=== PATIENT | female | born 1945 | race Caucasian/White ===

== ENCOUNTER → 2024-02-09 12:24 | Outpatient (REF) | payer OTHER, SELFPAY | LOC: WDC 12:24 | PROVIDERS: ATTENDING PHYSICIAN Nurse Practitioner Family | DX: Z12.31 Encounter for screening mammogram for malignant neoplasm of breast (principal) | CPT/HCPCS: 77063; 77067 ==

== ENCOUNTER 2024-10-03 12:56 | Inpatient (IN) | payer OTHER, SELFPAY ==
[2024-10-03] VITALS (8 sets, daily range): BP systolic 104–175; BP diastolic 59–91; BMI 40.9
--- NOTE | 2024-10-03 10:52 | ED.GENMED ---
History of Present Illness
<Clarke Richardson PA-C - Last Filed: 10/03/24 12:14>
General
Chief Complaint: Abdominal Symptoms
Source: patient
Exam Limitations: none
Time Seen by Provider: 10/03/24 10:42
History of Present Illness
History of Present Illness:
79-year-old female presents via EMS for she lives home alone with complaints of nausea fatigue headache. She denies vomiting. No chest pain. She denies shortness of breath. She denies abdominal pain. This started 2 days ago and is getting
worse. The headache started today and that she notes a moderate to severe headache with associated nausea. She denies any vision change. No other complaints at this time
Past History
<Clarke Richardson PA-C - Last Filed: 10/03/24 12:14>
Past History
ED Past Medical History: GERD, HTN, Hypercholesterolemia and Other (UTI, )
ED Past Surgical History: Appendectomy, Gynecological (D&C), Tonsilectomy and Other (Cataracts, Hemorrhoids. )
Patient has exhibited threatening behavior?: No
Social History
Tobacco: Non-smoker
Alcohol: None
Drug: None
Personal:
Living: alone
Phy Exam
<Clarke Richardson PA-C - Last Filed: 10/03/24 12:14>
Physical Exam
Physical Exam:
General: Well-appearing female no acute respiratory distress
HEENT normocephalic atraumatic subconjunctival hemorrhage noted right eye
Heart: Regular rate and rhythm
Lungs clear bilaterally
Abdomen is soft nontender nondistended
Extremities: No cyanosis but there is pitting edema bilateral lower extremities
Skin is warm no rash
Neurologic exam: Alert and oriented no facial asymmetry
Course
<Clarke Richardson PA-C - Last Filed: 10/03/24 12:14>
Orders/Labs/Results
Orders:
Orders
10/03/24 10:37
Electrocardiogram (*1) Urgent
Reason for Study: Chest Pain
EKG- Treatment ONCE
10/03/24 10:47
Acetaminophen [Tylenol] 1,000 mg PO NOW STA
Ondansetron Injectable [Zofran] 4 mg IV NOW STA
10/03/24 10:48
Comprehensive Metabolic Panel Urgent
CR Chest - 2 Views Urgent
Comment:
Reason For Exam: fever
10/03/24 10:49
COVID-19 Antigen Urgent
Source: Nasal Swab
Complete Blood Count/With Diff Urgent
NT-proBNP Urgent
Troponin I Urgent
INF RAPID [Influenza A+B Rapid Molecular] Urgent
ABBE Source: Nasal Swab
Specimen Description:
10/03/24 10:51
CT Head W/o Iv Contrast Urgent
Comment:
Reason For Exam: headache, nausea
10/03/24 12:28
Admit/Transfer Patient As Directed
Co-Sign Provider:
Level of Care: Inpatient admission
Assign to:: Telemetry
Physician / Group: Uday
Diagnosis: Hypoxia, COVID Infection
Reason for Telemetry: Arrhythmia
Date to Stop Telemetry: 10/06/24
Time to Stop Telemetry: 11:00
Reason for Hospitalization: oxygen, steroids
Expected length of stay greater than two midnights?: Yes
ELOS- Estimated Length of Stay in days: 3
I certify the patient meets the requirements for IP care: Yes
PRN Pain Medication Management As Directed
May give lesser potent ordered pain med per pt: Yes
preference::
Protocol:: Medication orders for pain may be administered in a
manner that supports deferring to patient preference
when the pt is:
- Requesting an ordered lesser potent pain medication.
Least to most potent pain medications are defined
as: acetaminophen < NSAID < tramadol < opioids
(morphine, oxycodone, hydromorphone).
- Requesting a lesser dose of the same medication IF
ORDERED.
- Requesting a less intrusive route of administration
if both routes are prescribed by the provider (PO <
IV).
10/03/24 12:29
Dexamethasone [Decadron] 6 mg PO NOW STA
10/03/24 12:32
Code Status As Directed
Resuscitation Status: Full Code
10/03/24 20:00
Nirmatrelvir/Ritonavir [Paxlovid 2X150 mg-100 mg Dose Pack] 1 dose PO BID
10/06/24 11:00
DC Protocol for Telemetry ONCE
Abnormal Lab Results
10/03/24 10/03/24
10:48 10:49
MCHC 31.9 L g/dL
(33.0-37.0)
RDW 14.9 H %
(11.5-14.5)
Plt Count 115 L 10^3/uL
(130-400)
Abs Immat Gran (auto) 0.1 H 10^3/uL
(0-0.05)
Absolute Neuts (auto) 6.7 H 10^3/uL
(1.4-6.5)
Absolute Lymphs (auto) 0.9 L 10^3/uL
(1.2-3.4)
Immature Gran % 0.6 H %
(0-0.5)
Neutrophils % 80.3 H %
(42.2-75.2)
Lymphocytes % 10.3 L %
(20.5-51.1)
Carbon Dioxide 33 H mmol/L
(22-30)
BUN 20 H mg/dl
(7-17)
Glucose 100 H mg/dl
(70-99)
Total Protein 6.0 L g/dl
(6.3-8.2)
SARS-CoV-2 Antigen Positive A
(Negative)
10/03/24 10:49
10/03/24 10:48
Vital Signs
Initial and Last Documented VS:
Initial Vital Signs
Temp
100.2 F
10/03/24 10:44
Last Documented Vital Signs
Temp Pulse Resp BP Pulse Ox
100.2 F 97 24 166/88 96
10/03/24 10:44 10/03/24 11:00 10/03/24 11:00 10/03/24 11:00 10/03/24 11:00
<Ellen Vásquez MD - Last Filed: 10/03/24 13:04>
Orders/Labs/Results
Orders:
Orders
10/03/24 10:37
Electrocardiogram (*1) Urgent
Reason for Study: Chest Pain
EKG- Treatment ONCE
10/03/24 10:47
Acetaminophen [Tylenol] 1,000 mg PO NOW STA
Ondansetron Injectable [Zofran] 4 mg IV NOW STA
10/03/24 10:48
Comprehensive Metabolic Panel Urgent
CR Chest - 2 Views Urgent
Comment:
Reason For Exam: fever
10/03/24 10:49
COVID-19 Antigen Urgent
Source: Nasal Swab
Complete Blood Count/With Diff Urgent
NT-proBNP Urgent
Troponin I Urgent
INF RAPID [Influenza A+B Rapid Molecular] Urgent
ABBE Source: Nasal Swab
Specimen Description:
10/03/24 10:51
CT Head W/o Iv Contrast Urgent
Comment:
Reason For Exam: headache, nausea
10/03/24 12:28
Admit/Transfer Patient As Directed
Co-Sign Provider:
Level of Care: Inpatient admission
Assign to:: Telemetry
Physician / Group: Uday
Diagnosis: Hypoxia, COVID Infection
Reason for Telemetry: Arrhythmia
Date to Stop Telemetry: 10/06/24
Time to Stop Telemetry: 11:00
Reason for Hospitalization: oxygen, steroids
Expected length of stay greater than two midnights?: Yes
ELOS- Estimated Length of Stay in days: 3
I certify the patient meets the requirements for IP care: Yes
PRN Pain Medication Management As Directed
May give lesser potent ordered pain med per pt: Yes
preference::
Protocol:: Medication orders for pain may be administered in a
manner that supports deferring to patient preference
when the pt is:
- Requesting an ordered lesser potent pain medication.
Least to most potent pain medications are defined
as: acetaminophen < NSAID < tramadol < opioids
(morphine, oxycodone, hydromorphone).
- Requesting a lesser dose of the same medication IF
ORDERED.
- Requesting a less intrusive route of administration
if both routes are prescribed by the provider (PO <
IV).
10/03/24 12:29
Dexamethasone [Decadron] 6 mg PO NOW STA
10/03/24 12:32
Code Status As Directed
Resuscitation Status: Full Code
10/03/24 20:00
Nirmatrelvir/Ritonavir [Paxlovid 2X150 mg-100 mg Dose Pack] 1 dose PO BID
10/06/24 11:00
DC Protocol for Telemetry ONCE
Abnormal Lab Results
10/03/24 10/03/24
10:48 10:49
MCHC 31.9 L g/dL
(33.0-37.0)
RDW 14.9 H %
(11.5-14.5)
Plt Count 115 L 10^3/uL
(130-400)
Abs Immat Gran (auto) 0.1 H 10^3/uL
(0-0.05)
Absolute Neuts (auto) 6.7 H 10^3/uL
(1.4-6.5)
Absolute Lymphs (auto) 0.9 L 10^3/uL
(1.2-3.4)
Immature Gran % 0.6 H %
(0-0.5)
Neutrophils % 80.3 H %
(42.2-75.2)
Lymphocytes % 10.3 L %
(20.5-51.1)
Carbon Dioxide 33 H mmol/L
(22-30)
BUN 20 H mg/dl
(7-17)
Glucose 100 H mg/dl
(70-99)
Total Protein 6.0 L g/dl
(6.3-8.2)
SARS-CoV-2 Antigen Positive A
(Negative)
10/03/24 10:49
10/03/24 10:48
Vital Signs
Initial and Last Documented VS:
Initial Vital Signs
Temp
100.2 F
10/03/24 10:44
Last Documented Vital Signs
Temp Pulse Resp BP Pulse Ox
100.2 F 97 24 166/88 96
10/03/24 10:44 10/03/24 11:00 10/03/24 11:00 10/03/24 11:00 10/03/24 11:00
Walkerlt;Clarke Richardson PA-C - Last Filed: 10/03/24 12:14>
MDM/Problems Addressed
Differential Diagnosis Includes:
Patient with fatigue headache nausea. She was noted to be hypoxic at triage in the mid 80s on room air but responded to 2 L of oxygen. Does appear volume overloaded with significant leg edema. Differential could include COVID versus flu versus
pneumonia versus viral illness CHF
Labs pending chest x-ray and CT head pending. Tylenol and Zofran ordered.
<Clarke Richardson PA-C - Last Filed: 10/03/24 12:14>
*Critical Care Note
Total Time (30-74mins, 75-104mins- exclusive of procedures): Not Applicable
<Clarke Richardson PA-C - Last Filed: 10/03/24 12:14>
Update Note
Update Note:
Patient tested positive for COVID today. She was hypoxic on arrival requiring nasal cannula oxygen. Chest x-ray clear head CT normal. Will admit to hospital for hypoxia secondary to COVID infection
ED Attending Note
<Clarke Richardson PA-C - Last Filed: 10/03/24 12:14>
-
Portions of this chart may have been created with voice recognition software.� Occasional wrong word or��sound alike� substitutions may have occurred due to the inherent limitations of voice recognition software.
<Ellen Vásquez MD - Last Filed: 10/03/24 13:04>
ED Attending Note
Patient seen and examined by attending physician: Yes
I performed the substantive portion of visit, reviewed & personally made and approve the management plan that is documented in note by myself or JANEE.: Yes
ED Attending Note:
Patient appears nontoxic without labored breath sounds. Heart sounds slightly tachycardic but regular rhythm. Mild edema bilateral lower extremities. Negative Homans' sign.
Discharge Plan
Departure
Patient Disposition: Admit
Date of Disposition: 10/03/24
Time of Disposition: 12:13
Presentation/result/management discussed w/ accepting MD/DO: Hospitalist
Discharge Problem:
Hypoxia, COVID-19
Interventions
Interventions:
*Risk Screen - Suicide Last Done: 10/03/24 10:44
*General Assessment Last Done: 10/03/24 10:44
*Neglect/Abuse Screening Last Done: 10/03/24 10:44
*ED- Fall Risk Assessment Last Done: 10/03/24 10:44
XG-Ewebiq-Jwkthlvcsj Assessment Last Done: 10/03/24 10:44
[2024-10-03] MEDS: TYLENOL 1000 MG PO (10:55)
[2024-10-03] MEDS: ZOFRAN 4 MG IV (10:55)
[2024-10-03 11:17] LABS: ALT (SGPT) 18 U/L (0-35); AST (SGOT) 23 U/L (14-36); Albumin 4.1 g/dl (3.5-5.0); Alkaline Phosphatase 63 U/L (38-126); Blood Urea Nitrogen 20 mg/dl (7-17); Calcium 9.3 mg/dl (8.4-10.2); Carbon Dioxide 33 mmol/L (22-30); Chloride 100 mmol/L (98-107); Estimated Creatinine Clearance 73 ml/min; Glucose 100 mg/dl (70-99); Potassium 3.7 mmol/L (3.5-5.1); Sodium 140 mmol/L (135-145); Total Bilirubin 0.8 mg/dl (0.2-1.3); eGFR > 60.00
[2024-10-03 11:23] LABS: COVID-19 Antigen Positive (Negative)
[2024-10-03 11:28] LABS: Hematocrit 41.1 % (37.0-47.0); Hemoglobin 13.1 g/dL (12.0-16.0); Mean Corp Hgb Conc. 31.9 g/dL (33.0-37.0); Mean Corpuscular Volume 97.2 fL (81.0-99.0); NT-proBNP 475 pg/ml; Red Blood Cell Count 4.23 10^6/uL (4.20-5.40); Troponin I < 0.012 ng/ml; White Blood Cell Count 8.3 10^3/uL (4.8-10.8)
[2024-10-03 11:29] LABS: % Basophils 0.6 % (0-2); % Eosinophils 0.5 % (0-6); % Immature Granulocytes 0.6 % (0-0.5); % Lymphocytes 10.3 % (20.5-51.1); % Monocytes 7.7 % (1.7-9.3); % Neutrophils 80.3 % (42.2-75.2); Absolute Basophils 0.1 10^3/uL (0-0.2); Absolute Immature Granulocytes 0.1 10^3/uL (0-0.05); Absolute Lymphocytes 0.9 10^3/uL (1.2-3.4); Absolute Monocytes 0.6 10^3/uL (0.1-0.6); Absolute Neutrophils 6.7 10^3/uL (1.4-6.5); Nucleated Red Blood Cells % 0 %
[2024-10-03 12:02] LABS: Mean Platelet Volume 10.2 fL (7.4-10.4); Platelet Count 115 10^3/uL (130-400)
[2024-10-03 12:03] LABS: Red Cell Dist. Width 14.9 % (11.5-14.5)
--- NOTE | 2024-10-03 12:16 | HPS.HSE ---
Family Physician
-
Family Physician: LISSETH Shay
Chief Complaint
-
Cough and Headache
History of Present Illness
Patient is a 79 y/o female past medical history of nephrotic syndrome, minimal change disease, hypertension, hyperlipidemia, chronic pain with opioid dependence who presents with cough and headache. Patient reports cough started two days ago which
she describes as dry. Today she developed worsening headache associated with nausea prompting her to come to the emergency department for evaluation. She denies shortness of breath but was found to be hypoxic to 84% on room air upon arrival. She
denies vomiting or diarrhea. She denies chest pain.
Medical History
Past Medical History
Past Medical History: Reports Other
Additional Past Medical History:
Nephrotic Syndrome
Minimal Change Disease
Alpha-1 Antitrypsin Deficiency
Essential Hypertension
Hyperlipidemia
GERD
Overactive Bladder
Bilateral Foot Drop
Osteoarthritis
Spinal Stenosis
Chronic Pain Syndrome with Opioid Dependence
Past Surgical History: Reports Other
Additional Past Surgical History:
Hemorrhoid Surgery
Appendectomy
Tonsillectomy
Kidney Biopsy
Social History
Tobacco: Non-smoker
Alcohol: None
Family History
Family History: Not pertinent
Allergies / Home Medications
Allergies reflects when Allergies were last updated in [facility].
Home Medications with original date entered in [facility]
Allergy/Medication List:
Allergies
Allergy/AdvReac Type Severity Reaction Status Date / Time
No Known Allergies Allergy Verified 10/03/24 10:36
Home Medications
aspirin 81 mg tablet,delayed release 81 mg PO DAILY Blood Clot Prevention/Tx 11/25/22
calcitriol 0.5 mcg capsule 0.5 mcg PO MOWEFR Supplement 11/25/22
calcium carbonate 500 mg PO QPM Supplement 11/25/22
coenzyme Q10 100 mg capsule (Co Q-10) 100 mg PO QPM 11/25/22
gabapentin 300 mg capsule 300 mg PO TID Neurological Condition 11/25/22
glucosamine-chondroitin 250 mg-200 mg tablet 1 tab PO DAILY 11/25/22
losartan 100 mg tablet 100 mg PO DAILY Blood Pressure 11/25/22
mirabegron 50 mg tablet,extended release 24 hr (Myrbetriq) 50 mg PO DAILY@1500 Urinary Issue 11/25/22
mycophenolate mofetil 250 mg capsule 250 mg PO BID 11/25/22
metoprolol tartrate 25 mg tablet 25 mg PO BID #1 tab 11/30/22
morphine 15 mg tablet,extended release 15 mg PO BID #6 tabs 11/30/22
acetaminophen 650 mg tablet,extended release 650 mg PO DAILYPRN PRN mild pain 10/03/24
cranberry fruit 450 mg tablet (cranberry) 450 mg PO DAILY 10/03/24
docusate sodium 100 mg capsule 100 mg PO DAILY constipation 10/03/24
furosemide 20 mg tablet 20 mg PO MOWEFR 10/03/24
hydralazine 10 mg tablet 10 mg PO BID 10/03/24
omeprazole 20 mg capsule,delayed release 20 mg PO DAILY 10/03/24
polyethylene glycol 3350 17 gram oral powder packet 17 g PO DAILY 10/03/24
pravastatin 40 mg tablet 40 mg PO DAILY 10/03/24
prednisone 10 mg tablet 10 mg PO DAILY 10/03/24
propranolol 40 mg tablet 80 mg PO DAILY 10/03/24
therapeutic multivitamin 1 tab PO DAILY 10/03/24
tramadol 50 mg tablet 50 mg PO BIDPRN PRN moderate pain 10/03/24
turmeric root extract 500 mg capsule 500 mg PO DAILY 10/03/24
Review of Systems
-
A 12 point ROS was completed and negative except as noted: Yes
Constitutional: Reports Chills; Denies Fever
Respiratory: Reports Cough; Denies Trouble Breathing
Cardiac: Denies Chest Pain or Palpitations
Physical Exam
Vital Signs
Vital Signs
Temp Pulse Resp BP Pulse Ox
100.2 F 97 24 166/88 96
10/03/24 10:44 10/03/24 11:00 10/03/24 11:00 10/03/24 11:00 10/03/24 11:00
Physical Exam
General: Comfortable and Conversant
HEENT: Anicteric, Moist mucous membranes and Oxygen (Nasal Cannula)
Respiratory: Clear and Non Labored Respirations
Cardiac: S1/S2, Regular Rhythm and Tachycardia (Slightly)
GI: Soft and Non Tender
Rectal: Deferred by Provider
Musculoskeletal: No Clubbing, No Cyanosis and Other (+3 pitting edema bilateral lower extremities)
Skin: Warm and Dry
Neuro: Awake, Alert, Oriented and Other (Chronic bilateral foot drop)
Psych: Calm
Laboratory Results
-
10/03/24 10:49
10/03/24 10:48
Laboratory Results
Total Bilirubin 0.8 mg/dl (0.2-1.3) 10/03/24 10:48
AST 23 U/L (14-36) 10/03/24 10:48
ALT 18 U/L (0-35) 10/03/24 10:48
Alkaline Phosphatase 63 U/L (38-126) 10/03/24 10:48
Troponin I < 0.012 ng/ml 10/03/24 10:49
Data Reviewed
-
Diagnostic Radiology: Report Reviewed by me
CT Scan: Report Reviewed by me
Lab Data: Labs Reviewed by me
Impression/Plan
-
Acute Hypoxic Respiratory Insufficiency secondary to Acute COVID Viral Infection in immunocompromised patient
-Continue supplemental oxygen
-Start Decadron 6mg Daily
-Start Paxlovid
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
-Continue mycophenolate
Essential Hypertension
-Continue hydralazine, losartan and metoprolol
Hyperlipidemia
-Hold statin while on Paxlovid
Osteoarthritis / Spinal Stenosis
Chronic Pain Syndrome with Opioid Dependence
-Continue gabapentin
-Continue morphine
Chronic Lower Extremity Edema
-Continue Lasix
DVT proph: Lovenox
Code STatus: Full Code
[2024-10-03] MEDS: DECADRON 6 MG PO (13:04)
--- NOTE | 2024-10-03 13:23 | W.PN.UPDATE ---
Update Note
Progress Note Update
This is an addendum to H&P written by Monica Son on 10/03/2024.� Patient seen and examined independently with PA.
79-year-old female past medical history of nephrotic syndrome,�overactive bladder, hypertension, GERD, hypercholesteremia, bilateral foot drop, arthritis, presenting with nausea, fatigue and headache for 2 days.� No cough or shortness of breath.
Hypoxic to 84% requiring 2 L oxygen. Lower extremity edema on exam.�
Blood pressure 170 systolic.� Temperature 100.2.� Labs unremarkable.
Patient positive for COVID.
Chest x-ray shows no acute pulmonary process.� CT head shows no acute abnormality.
Patient with COVID infection.� Tylenol, 6 mg�dexamethasone. Paxlovid due to immunocompromised. Hold statin.�
[2024-10-03] MEDS: NEURONTIN 300 MG PO ×2 (16:24→20:52)
[2024-10-03] MEDS: OSCAL CAL 500 500 MG PO (18:01)
[2024-10-03] MEDS: CELLCEPT 250 MG PO (20:52)
[2024-10-03] MEDS: APRESOLINE 10 MG PO (20:52)
[2024-10-03] MEDS: LOPRESSOR 25 MG PO (20:52)
[2024-10-03] MEDS: MS CONTIN (EXTENDED RELEASE) 15 MG PO (20:52)
[2024-10-03] MEDS: DESENEX/MITRAZOL/ZEASORB 1 APPLIC TOPICAL (20:53)
[2024-10-03] MEDS: PAXLOVID 2X150 MG-100 MG DOSE PACK 1 DOSE PO (20:53)
[2024-10-03] MEDS: TYLENOL 650 MG PO (23:20)
[2024-10-04 03:17] VITALS: BP 108/64
[2024-10-04 05:26] VITALS: BMI 36.5
[2024-10-04 07:00] VITALS: BP 133/80
--- NOTE | 2024-10-04 07:47 | W.PN.HOSP.TC ---
Today's Communication/Plan
-
Remdesivir -- monitor on telemetry for side effects e.g. bradycardia. Also hypotension, etc
Wean O2 as tolerated
Assessment / Plan
Assessment / Plan
Physical Exam
General: Comfortable and Conversant
HEENT: Anicteric, Moist mucous membranes and Oxygen (Nasal Cannula)
Respiratory: Clear and Non Labored Respirations
Cardiac: S1/S2, Regular Rhythm and Tachycardia (Slightly)
GI: Soft and Non Tender
Rectal: Deferred by Provider
Musculoskeletal: No Clubbing, No Cyanosis and Other (+3 pitting edema bilateral lower extremities)
Skin: Warm and Dry
Neuro: Awake, Alert, Oriented and Other (Chronic bilateral foot drop)
Psych: Calm
Assessment/Plan
79 y/o female past medical history of nephrotic syndrome (on chronic Cellcept and Prednisone at home), minimal change disease, GERD, hypertension, hyperlipidemia, chronic pain with opioid dependence, overactive bladder, bilateral foot drop,
arthritis, who presented with nausea, fatigue and headache for 2 days. Patient reports sore throat started two days prior to presentation. On the day of presentation, she developed worsening headache associated with nausea prompting her to come to
the emergency department for evaluation. No cough or shortness of breath. She denied shortness of breath but was found to be hypoxic to 84% on room air upon arrival. She denied vomiting or diarrhea. She denied chest pain.
Acute Hypoxic Respiratory Insufficiency secondary to Acute COVID Viral Infection in immunocompromised patient
-Continue supplemental oxygen
-Start Decadron 6mg Daily -- Day 1 was October 03, 2024
-Paxlovid given on october 03, 2024
-Start Remdesivir -- Day 1 is 10/04/24; monitor for side effects: bradycardia, hypotension, AST/ALT/Bilirubin effects
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
-Continue mycophenolate
-Continue Dexamethasone while hospitalized or 10 days (whichever is first, then taper back to home steroids)
Bilateral Lower Extremity Edema
-Check bilateral lower extremity ultrasound
Subconjunctival Hemorrhage of Right Eye
-Artificial tears as needed
Essential Hypertension
-Continue hydralazine, losartan and metoprolol
Hyperlipidemia
-Continue statin
Osteoarthritis / Spinal Stenosis
Chronic Pain Syndrome with Opioid Dependence
-Continue gabapentin
-Continue morphine
Chronic Lower Extremity Edema
-Continue Lasix
DVT Prophylaxis: Lovenox
Code Status: Full Code
Anticipated Discharge: > 48 hours
Subjective/Interval History
-
Date of Service: October 04, 2024
Patient was seen and examined. She denied any new symptoms or complaints, feeling okay.
Objective Data
-
Labs:
Laboratory Results
10/04/24
07:10
WBC Pending
Hgb Pending
Hct Pending
Plt Count Pending
Sodium Pending
Potassium Pending
Chloride Pending
Carbon Dioxide Pending
BUN Pending
Creatinine Pending
Glucose Pending
Calcium Pending
Vital Signs:
Vital Signs
Temp Pulse Resp BP Pulse Ox
98.5 F 76 17 133/80 96
10/04/24 07:00 10/04/24 07:00 10/04/24 07:00 10/04/24 07:00 10/04/24 07:00
I&O
10/03/24 10/04/24 10/05/24
06:59 06:59 06:59
Intake Total 960 / 960
Balance 960 / 960
[2024-10-04 08:08] LABS: Hematocrit 40.5 % (37.0-47.0); Hemoglobin 12.9 g/dL (12.0-16.0); Mean Corp Hgb Conc. 31.9 g/dL (33.0-37.0); Mean Corpuscular Volume 97.4 fL (81.0-99.0); Platelet Count 130 10^3/uL (130-400); Red Blood Cell Count 4.16 10^6/uL (4.20-5.40); Red Cell Dist. Width 14.6 % (11.5-14.5); White Blood Cell Count 6.2 10^3/uL (4.8-10.8)
[2024-10-04 08:19] LABS: Blood Urea Nitrogen 17 mg/dl (7-17); Calcium 9.4 mg/dl (8.4-10.2); Carbon Dioxide 34 mmol/L (22-30); Chloride 101 mmol/L (98-107); Estimated Creatinine Clearance 79 ml/min; Glucose 111 mg/dl (70-99); Potassium 4.5 mmol/L (3.5-5.1); Sodium 139 mmol/L (135-145); eGFR > 60.00
[2024-10-04] MEDS: MIRALAX 17 GRAMS PO (08:33)
[2024-10-04] MEDS: APRESOLINE 10 MG PO ×2 (08:36→20:41)
[2024-10-04] MEDS: DECADRON 6 MG PO (08:36)
[2024-10-04] MEDS: ASPIR LOW (ENTERIC COATED) 81 MG PO (08:37)
[2024-10-04] MEDS: NEURONTIN 300 MG PO ×3 (08:37→20:41)
[2024-10-04] MEDS: INDERAL 80 MG PO (08:37)
[2024-10-04] MEDS: PROTONIX 40 MG PO (08:37)
[2024-10-04] MEDS: MS CONTIN (EXTENDED RELEASE) 15 MG PO ×2 (08:37→20:40)
[2024-10-04] MEDS: CELLCEPT 250 MG PO ×2 (08:37→20:41)
[2024-10-04] MEDS: LOPRESSOR 25 MG PO ×2 (08:38→20:40)
[2024-10-04] MEDS: COZAAR 100 MG PO (08:38)
[2024-10-04] MEDS: DESENEX/MITRAZOL/ZEASORB 1 APPLIC TOPICAL ×2 (08:41→20:42)
[2024-10-04] MEDS: LASIX 20 MG PO (08:41)
[2024-10-04] MEDS: ROCALTROL 0.5 MCG PO (08:43)
[2024-10-04] MEDS: VEKLURY 250 MG IV (09:50)
[2024-10-04] MEDS: PRAVACHOL 40 MG PO (09:51)
[2024-10-04 12:00] VITALS: BP 133/65
--- NOTE | 2024-10-04 14:06 | CM ---
CM following re: discharge planning.
Reviewed pt's chart, met with [pt.
Pt is a 79 year old female, admitted with primary dx of Acute Hypoxic Respiratory Insufficiency secondary to Acute COVID Viral Infection in immunocompromised patient. PMH includes: nephrotic syndrome, minimal change disease, hypertension,
hyperlipidemia, chronic pain with opioid dependence.
Pt reports she lives alone in [facility] apartment, no steps, has 2 supportive children, daughter lives nearby and helps as needed, son lives in [place]. Pt reports she ambulates with a walker, wears braces, known to [facility]. Pt reports she was at
[facility] and [facility] and did not have a good experience. Pt made it very clear she will not go to any SNFs and she made a strong request she will return back home with [facility] and family support.
A referral to [facility] made.
PCP: Ratna Higgins
Pharmacy: [facility]
D/C plan: return back home with [facility] and family support.
CM will follow with discharge plan updates hospitalization progresses
[2024-10-04] MEDS: MYRBETRIQ EXTENDED RELEASE 50 MG PO (15:27)
[2024-10-04 15:30] VITALS: BP 156/94
[2024-10-04] MEDS: OSCAL CAL 500 500 MG PO (17:54)
[2024-10-04 18:58] LABS: Hepatitis C Antibody Negative (Negative)
[2024-10-04 19:02] VITALS: BP 141/76
[2024-10-04 23:10] VITALS: BP 160/87
[2024-10-04] MEDS: ULTRAM 50 MG PO (23:15)
[2024-10-05] VITALS (7 sets, daily range): BP systolic 132–164; BP diastolic 74–91; PULSE 80; O2SAT 94; BMI 36.2
[2024-10-05] MEDS: ASPIR LOW (ENTERIC COATED) 81 MG PO (07:34)
[2024-10-05] MEDS: PRAVACHOL 40 MG PO (07:34)
[2024-10-05] MEDS: APRESOLINE 10 MG PO ×2 (07:34→21:28)
[2024-10-05] MEDS: LOPRESSOR 25 MG PO ×2 (07:34→21:29)
[2024-10-05] MEDS: PROTONIX 40 MG PO (07:34)
[2024-10-05] MEDS: DESENEX/MITRAZOL/ZEASORB 1 APPLIC TOPICAL ×2 (07:35→21:31)
[2024-10-05 07:37] LABS: % Immature Granulocytes 0.5 % (0-0.5); % Lymphocytes 9.6 % (20.5-51.1); % Monocytes 4.6 % (1.7-9.3); % Neutrophils 85.3 % (42.2-75.2); Absolute Lymphocytes 0.8 10^3/uL (1.2-3.4); Absolute Monocytes 0.4 10^3/uL (0.1-0.6); Absolute Neutrophils 6.9 10^3/uL (1.4-6.5); Hematocrit 41.2 % (37.0-47.0); Hemoglobin 13.4 g/dL (12.0-16.0); Mean Corp Hgb Conc. 32.5 g/dL (33.0-37.0); Mean Corpuscular Hgb 31.2 pg (27.0-31.0); Mean Platelet Volume 10.9 fL (7.4-10.4); Nucleated Red Blood Cells % 0 %; Platelet Count 142 10^3/uL (130-400); Red Blood Cell Count 4.29 10^6/uL (4.20-5.40); Red Cell Dist. Width 14.6 % (11.5-14.5); White Blood Cell Count 8.1 10^3/uL (4.8-10.8)
[2024-10-05] MEDS: COZAAR 100 MG PO (07:47)
[2024-10-05] MEDS: CELLCEPT 250 MG PO ×2 (07:47→21:29)
[2024-10-05] MEDS: DECADRON 6 MG PO (07:47)
[2024-10-05] MEDS: MIRALAX PO (07:48)
[2024-10-05] MEDS: NEURONTIN 300 MG PO ×3 (07:49→21:29)
[2024-10-05] MEDS: MS CONTIN (EXTENDED RELEASE) 15 MG PO ×2 (07:49→21:29)
[2024-10-05] MEDS: INDERAL 80 MG PO (07:50)
[2024-10-05 08:06] LABS: ALT (SGPT) 21 U/L (0-35); AST (SGOT) 27 U/L (14-36); Albumin 3.6 g/dl (3.5-5.0); Alkaline Phosphatase 59 U/L (38-126); Blood Urea Nitrogen 23 mg/dl (7-17); Calcium 9.4 mg/dl (8.4-10.2); Carbon Dioxide 34 mmol/L (22-30); Chloride 98 mmol/L (98-107); Estimated Creatinine Clearance 78 ml/min; Glucose 120 mg/dl (70-99); Magnesium 1.9 mg/dl (1.6-2.3); Potassium 4.2 mmol/L (3.5-5.1); Sodium 139 mmol/L (135-145); Total Bilirubin 0.4 mg/dl (0.2-1.3); Total Protein 5.5 g/dl (6.3-8.2); eGFR > 60.00
[2024-10-05] MEDS: VEKLURY 250 MG IV (11:15)
--- NOTE | 2024-10-05 13:10 | W.PN.HOSP.TC ---
Today's Communication/Plan
-
Doing better
Home Oxygen Assessment
PT and if needed OT
Assessment / Plan
Assessment / Plan
Physical Exam
General: Comfortable and Conversant
HEENT: Anicteric, Moist mucous membranes
Respiratory: Clear and Non Labored Respirations. ON ROOM AIR saturating well.
Cardiac: S1/S2, Regular Rhythm and Regular Rate
GI: Soft and Non Tender. Positive bowel sounds.
Musculoskeletal: No Cyanosis and Other (+3 pitting edema bilateral lower extremities)
Skin: Warm and Dry
Neuro: Awake, Alert, Oriented and Other (Chronic bilateral foot drop)
Psych: Calm
Assessment/Plan
79 y/o female past medical history of nephrotic syndrome (on chronic Cellcept and Prednisone at home), minimal change disease, GERD, hypertension, hyperlipidemia, chronic pain with opioid dependence, overactive bladder, bilateral foot drop,
arthritis, who presented with nausea, fatigue and headache for 2 days. Patient reports sore throat started two days prior to presentation. On the day of presentation, she developed worsening headache associated with nausea prompting her to come to
the emergency department for evaluation. No cough or shortness of breath. She denied shortness of breath but was found to be hypoxic to 84% on room air upon arrival. She denied vomiting or diarrhea. She denied chest pain.
Acute Hypoxic Respiratory Insufficiency secondary to Acute COVID Viral Infection in immunocompromised patient
-Continue supplemental oxygen -- NOW ON ROOM AIR
-Start Decadron 6mg Daily -- Day 1 was October 03, 2024
-Paxlovid given on october 03, 2024
-Start Remdesivir -- Day 1 is 10/04/24; monitor for side effects: bradycardia, hypotension, AST/ALT/Bilirubin effects
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
-Continue mycophenolate
-Continue Dexamethasone while hospitalized or 10 days (whichever is first, then taper back to home steroids)
Bilateral Lower Extremity Edema
-Checked bilateral lower extremity ultrasound --
Subconjunctival Hemorrhage of Right Eye
-Artificial tears as needed
Essential Hypertension
-Continue hydralazine, losartan and metoprolol
Hyperlipidemia
-Continue statin
Osteoarthritis / Spinal Stenosis
Chronic Pain Syndrome with Opioid Dependence
-Continue gabapentin
-Continue morphine
Chronic Lower Extremity Edema
-Continue Lasix
DVT Prophylaxis: Lovenox
Code Status: Full Code
Anticipated Discharge: Within 24 hours
Subjective/Interval History
-
Date of Service: October 05, 2024
Patient was seen and examined. She denied any new symptoms or complaints.
Objective Data
-
Labs:
Laboratory Results
10/05/24
06:39
WBC 8.1
Hgb 13.4
Hct 41.2
Plt Count 142
Sodium 139
Potassium 4.2
Chloride 98
Carbon Dioxide 34 H
BUN 23 H
Creatinine 0.7
Glucose 120 H
Calcium 9.4
Total Bilirubin 0.4
AST 27
ALT 21
Alkaline Phosphatase 59
Vital Signs:
Vital Signs
Temp Pulse Resp BP Pulse Ox
99.2 F 77 18 152/84 95
10/05/24 11:29 10/05/24 11:29 10/05/24 11:29 10/05/24 11:29 10/05/24 11:29
I&O
10/04/24 10/05/24 10/06/24
06:59 06:59 06:59
Intake Total 960 / 960 1530 / 1530
Balance 960 / 960 1530 / 1530
[2024-10-05] MEDS: MYRBETRIQ EXTENDED RELEASE 50 MG PO (15:49)
[2024-10-05] MEDS: OSCAL CAL 500 500 MG PO (17:12)
[2024-10-06 03:11] VITALS: BP 129/68
[2024-10-06 05:37] VITALS: BMI 36.2
[2024-10-06 07:50] VITALS: BP 169/82
[2024-10-06 08:06] LABS: % Basophils 0.1 % (0-2); % Immature Granulocytes 0.6 % (0-0.5); % Lymphocytes 8.9 % (20.5-51.1); % Monocytes 4.6 % (1.7-9.3); % Neutrophils 85.8 % (42.2-75.2); Absolute Immature Granulocytes 0.1 10^3/uL (0-0.05); Absolute Lymphocytes 0.8 10^3/uL (1.2-3.4); Absolute Monocytes 0.4 10^3/uL (0.1-0.6); Absolute Neutrophils 7.4 10^3/uL (1.4-6.5); Hematocrit 41.3 % (37.0-47.0); Hemoglobin 13.5 g/dL (12.0-16.0); Mean Corp Hgb Conc. 32.7 g/dL (33.0-37.0); Mean Corpuscular Hgb 31.3 pg (27.0-31.0); Mean Corpuscular Volume 95.8 fL (81.0-99.0); Mean Platelet Volume 10.9 fL (7.4-10.4); Nucleated Red Blood Cells % 0 %; Platelet Count 145 10^3/uL (130-400); Red Blood Cell Count 4.31 10^6/uL (4.20-5.40); Red Cell Dist. Width 14.3 % (11.5-14.5); White Blood Cell Count 8.6 10^3/uL (4.8-10.8)
[2024-10-06 08:42] LABS: ALT (SGPT) 19 U/L (0-35); AST (SGOT) 24 U/L (14-36); Albumin 3.2 g/dl (3.5-5.0); Alkaline Phosphatase 57 U/L (38-126); Blood Urea Nitrogen 30 mg/dl (7-17); Calcium 9.2 mg/dl (8.4-10.2); Carbon Dioxide 35 mmol/L (22-30); Chloride 97 mmol/L (98-107); Estimated Creatinine Clearance 69 ml/min; Glucose 134 mg/dl (70-99); Potassium 3.8 mmol/L (3.5-5.1); Sodium 137 mmol/L (135-145); Total Bilirubin 0.4 mg/dl (0.2-1.3); Total Protein 5.3 g/dl (6.3-8.2); eGFR > 60.00
[2024-10-06] MEDS: MIRALAX 17 GRAMS PO (09:19)
[2024-10-06] MEDS: CELLCEPT 250 MG PO ×2 (09:19→20:44)
[2024-10-06] MEDS: PRAVACHOL 40 MG PO (09:19)
[2024-10-06] MEDS: ASPIR LOW (ENTERIC COATED) 81 MG PO (09:20)
[2024-10-06] MEDS: DECADRON 6 MG PO (09:20)
[2024-10-06] MEDS: MS CONTIN (EXTENDED RELEASE) 15 MG PO ×2 (09:20→20:44)
[2024-10-06] MEDS: PROTONIX 40 MG PO (09:20)
[2024-10-06] MEDS: NEURONTIN 300 MG PO ×3 (09:20→20:44)
[2024-10-06] MEDS: COZAAR 100 MG PO (09:21)
[2024-10-06] MEDS: INDERAL 80 MG PO (09:21)
[2024-10-06] MEDS: APRESOLINE 10 MG PO ×2 (09:22→20:44)
[2024-10-06] MEDS: LOPRESSOR 25 MG PO ×2 (09:22→20:44)
[2024-10-06] MEDS: ROCALTROL 0.5 MCG PO (09:26)
[2024-10-06] MEDS: LASIX 20 MG PO (09:26)
[2024-10-06] MEDS: DESENEX/MITRAZOL/ZEASORB 1 APPLIC TOPICAL ×2 (09:36→20:44)
--- NOTE | 2024-10-06 09:42 | W.PN.HOSP.TC ---
Today's Communication/Plan
-
CXR and home O2 assessment in the morning
Patient is adamant that she still feels too sick to go home and everything not ready at home
Continue Remdesivir
Assessment / Plan
Assessment / Plan
Physical Exam
General: Comfortable and Conversant
HEENT: Anicteric, Moist mucous membranes
Respiratory: Clear and Non Labored Respirations. ON ROOM AIR saturating well.
Cardiac: S1/S2, Regular Rhythm and Regular Rate
GI: Soft and Non Tender. Positive bowel sounds.
Musculoskeletal: No Cyanosis and Other (+3 pitting edema bilateral lower extremities)
Skin: Warm and Dry
Neuro: Awake, Alert, Oriented and Other (Chronic bilateral foot drop)
Psych: Calm
Assessment/Plan
79 y/o female past medical history of nephrotic syndrome (on chronic Cellcept and Prednisone at home), minimal change disease, GERD, hypertension, hyperlipidemia, chronic pain with opioid dependence, overactive bladder, bilateral foot drop,
arthritis, who presented with nausea, fatigue and headache for 2 days. Patient reports sore throat started two days prior to presentation. On the day of presentation, she developed worsening headache associated with nausea prompting her to come to
the emergency department for evaluation. No cough or shortness of breath. She denied shortness of breath but was found to be hypoxic to 84% on room air upon arrival. She denied vomiting or diarrhea. She denied chest pain.
Acute Hypoxic Respiratory Insufficiency secondary to Acute COVID Viral Infection in immunocompromised patient
-Continue supplemental oxygen -- NOW WEANED TO ROOM AIR
-Continue Decadron 6mg Daily -- Day 1 was October 03, 2024
-Paxlovid given on October 03, 2024
-Continue Remdesivir -- Day 1 is 10/04/24; monitor for side effects: bradycardia, hypotension, AST/ALT/Bilirubin effects
-I hillary questioned nephrology regarding whether there is any concern with patient getting Remdesivir given her Minimal Change Disease, and they said Remdesivir is not known to cause acute kidney injury
-Check repeat CXR in the morning given cough
-Home O2 assessment
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
-Continue Mycophenolate
-Continue Dexamethasone while hospitalized or 10 days (whichever is first, then taper back to home steroids)
Bilateral Lower Extremity Edema
-Checked bilateral lower extremity ultrasound -- no DVT
Subconjunctival Hemorrhage of Right Eye
-Artificial tears as needed
Essential Hypertension
-Continue hydralazine, losartan and metoprolol
Hyperlipidemia
-Continue statin
Osteoarthritis / Spinal Stenosis
Chronic Pain Syndrome with Opioid Dependence
-Continue gabapentin
-Continue morphine
Chronic Lower Extremity Edema
-Continue Lasix
DVT Prophylaxis: SCDs. Lovenox
Code Status: Full Code
Anticipated Discharge: 24 - 48 hours
Subjective/Interval History
-
Date of Service: October 06, 2024
Patient was seen and examined. She reported a little cough, denied any new significant symptoms or complaints.
Objective Data
-
Labs:
Laboratory Results
10/06/24
06:59
WBC 8.6
Hgb 13.5
Hct 41.3
Plt Count 145
Sodium 137
Potassium 3.8
Chloride 97 L
Carbon Dioxide 35 H
BUN 30 H
Creatinine 0.8
Glucose 134 H
Calcium 9.2
Total Bilirubin 0.4
AST 24
ALT 19
Alkaline Phosphatase 57
Vital Signs:
Vital Signs
Temp Pulse Resp BP Pulse Ox
98.6 F 71 16 169/82 93
10/06/24 07:50 10/06/24 09:26 10/06/24 07:50 10/06/24 09:26 10/06/24 07:50
I&O
10/05/24 10/06/24 10/07/24
06:59 06:59 06:59
Intake Total 1530 / 1530 1810 / 1810 480 / 480
Balance 1530 / 1530 1810 / 1810 480 / 480
--- NOTE | 2024-10-06 10:17 | CM ---
CM following re: discharge planning.
Reviewed pt's chart, met with pt.
Pt lives alone in [facility] apartment, no steps, has 2 supportive children, daughter lives nearby and helps as needed, son lives in [place]. Pt reports she ambulates with a walker, wears braces, known to [facility].
PT and OT evaluations noted - home PT/OT recommended. Pt is aware, expressed her agreement and she requested [facility].
A referral to [facility] made. CM spoke to [facility] liaison and she confirmed that pt accepted for VN services.
According to MD pt possibly will be ready for discharge. Pt is aware, expressed her disagreement and she stated she will discuss it with MD. MD has been notified. IMM reviewed, placed on chart, pt has a copy.
Please fax discharge instructions to Antony KRAMER at [phone]
D/C plan: return back home with [facility] and family support.
CM will follow with discharge plan updates as hospitalization progresses
[2024-10-06 11:35] VITALS: BP 167/84
[2024-10-06] MEDS: VEKLURY 250 MG IV (12:04)
[2024-10-06] MEDS: MYRBETRIQ EXTENDED RELEASE 50 MG PO (15:02)
[2024-10-06 15:07] VITALS: BP 151/79
[2024-10-06] MEDS: OSCAL CAL 500 500 MG PO (17:07)
[2024-10-06 23:19] VITALS: BP 141/75
[2024-10-07] MEDS: TYLENOL 650 MG PO ×2 (02:01→16:22)
[2024-10-07 07:20] VITALS: BP 168/91
[2024-10-07 07:33] LABS: % Immature Granulocytes 0.8 % (0-0.5); % Monocytes 4.8 % (1.7-9.3); % Neutrophils 85.4 % (42.2-75.2); Absolute Immature Granulocytes 0.1 10^3/uL (0-0.05); Absolute Lymphocytes 0.8 10^3/uL (1.2-3.4); Absolute Monocytes 0.4 10^3/uL (0.1-0.6); Absolute Neutrophils 7.2 10^3/uL (1.4-6.5); Hematocrit 41.5 % (37.0-47.0); Hemoglobin 13.6 g/dL (12.0-16.0); Mean Corp Hgb Conc. 32.8 g/dL (33.0-37.0); Mean Corpuscular Hgb 30.7 pg (27.0-31.0); Mean Corpuscular Volume 93.7 fL (81.0-99.0); Mean Platelet Volume 11.3 fL (7.4-10.4); Nucleated Red Blood Cells % 0 %; Platelet Count 150 10^3/uL (130-400); Red Blood Cell Count 4.43 10^6/uL (4.20-5.40); Red Cell Dist. Width 13.9 % (11.5-14.5); White Blood Cell Count 8.4 10^3/uL (4.8-10.8)
[2024-10-07] MEDS: INDERAL 80 MG PO (07:57)
[2024-10-07] MEDS: NEURONTIN 300 MG PO ×3 (07:57→20:19)
[2024-10-07] MEDS: ASPIR LOW (ENTERIC COATED) 81 MG PO (07:57)
[2024-10-07] MEDS: PROTONIX 40 MG PO (07:57)
[2024-10-07] MEDS: CELLCEPT 250 MG PO ×2 (07:57→20:19)
[2024-10-07] MEDS: LOPRESSOR 25 MG PO ×2 (07:58→20:20)
[2024-10-07] MEDS: DESENEX/MITRAZOL/ZEASORB 1 APPLIC TOPICAL ×2 (07:58→21:25)
[2024-10-07] MEDS: MIRALAX 17 GRAMS PO (07:58)
[2024-10-07] MEDS: PRAVACHOL 40 MG PO (07:58)
[2024-10-07] MEDS: DECADRON 6 MG PO (07:58)
[2024-10-07] MEDS: APRESOLINE 10 MG PO ×2 (07:58→20:19)
[2024-10-07] MEDS: COZAAR 100 MG PO (07:58)
[2024-10-07] MEDS: MS CONTIN (EXTENDED RELEASE) 15 MG PO ×2 (07:58→20:19)
[2024-10-07 08:05] LABS: ALT (SGPT) 24 U/L (0-35); AST (SGOT) 28 U/L (14-36); Albumin 3.6 g/dl (3.5-5.0); Alkaline Phosphatase 60 U/L (38-126); Blood Urea Nitrogen 37 mg/dl (7-17); Carbon Dioxide 36 mmol/L (22-30); Chloride 95 mmol/L (98-107); Estimated Creatinine Clearance 69 ml/min; Glucose 132 mg/dl (70-99); Potassium 3.9 mmol/L (3.5-5.1); Sodium 138 mmol/L (135-145); Total Bilirubin 0.6 mg/dl (0.2-1.3); Total Protein 5.5 g/dl (6.3-8.2); eGFR > 60.00
--- NOTE | 2024-10-07 09:05 | RESPNOTE ---
Home O2 assessment attempted at this time. Pt stated ' I have drop foot in both feet and would feel more comfortable with my leg braces on and walking with PT'. resting vitals were taken on RA, Sat 97% on RA, HR-67 RR-16. Reached out to PT to
correlate a time to have them assist with completing home O2 assessment at a later time. RN notified.
[2024-10-07] MEDS: VEKLURY 250 MG IV (12:02)
--- NOTE | 2024-10-07 12:50 | W.PN.HOSP.TC ---
Today's Communication/Plan
-
Doing well
Patient stated she is doing better, she would like to complete Remdesivir course here (tomorrow) prior to discharge. She said she also needs to set up everything at home before being discharged which will not be until tomorrow.
Assessment / Plan
Assessment / Plan
Physical Exam
General: Comfortable and Conversant
HEENT: Anicteric, Moist mucous membranes
Respiratory: Clear and Non Labored Respirations. ON ROOM AIR saturating well.
Cardiac: S1/S2, Regular Rhythm and Regular Rate
GI: Soft and Non Tender. Positive bowel sounds.
Musculoskeletal: No Cyanosis and Other (+3 pitting edema bilateral lower extremities)
Skin: Warm and Dry
Neuro: Awake, Alert, Oriented and Other (Chronic bilateral foot drop)
Psych: Calm
Assessment/Plan
79 y/o female past medical history of nephrotic syndrome (on chronic Cellcept and Prednisone at home), minimal change disease, GERD, hypertension, hyperlipidemia, chronic pain with opioid dependence, overactive bladder, bilateral foot drop,
arthritis, who presented with nausea, fatigue and headache for 2 days. Patient reports sore throat started two days prior to presentation. On the day of presentation, she developed worsening headache associated with nausea prompting her to come to
the emergency department for evaluation. No cough or shortness of breath. She denied shortness of breath but was found to be hypoxic to 84% on room air upon arrival. She denied vomiting or diarrhea. She denied chest pain.
Acute Hypoxic Respiratory Insufficiency secondary to Acute COVID Viral Infection in immunocompromised patient
-Continue supplemental oxygen -- NOW WEANED TO ROOM AIR
-Continue Decadron 6mg Daily -- Day 1 was October 03, 2024
-Paxlovid given on October 03, 2024
-Continue Remdesivir -- Day 1 is 10/04/24; monitor for side effects: bradycardia, hypotension, AST/ALT/Bilirubin effects
-I hillary questioned nephrology regarding whether there is any concern with patient getting Remdesivir given her Minimal Change Disease, and they said Remdesivir is not known to cause acute kidney injury
-Repeat CXR stable
-Home O2 assessment - based on PT note, patient does not qualify for home oxygen
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
-Continue Mycophenolate
-Continue Dexamethasone while hospitalized or 10 days (whichever is first, then taper back to home steroids)
Bilateral Lower Extremity Edema
-Checked bilateral lower extremity ultrasound -- no DVT
Subconjunctival Hemorrhage of Right Eye
-Artificial tears as needed
Essential Hypertension
-Continue hydralazine, losartan and metoprolol
Hyperlipidemia
-Continue statin
Osteoarthritis / Spinal Stenosis
Chronic Pain Syndrome with Opioid Dependence
-Continue gabapentin
-Continue morphine
Chronic Lower Extremity Edema
-Continue Lasix
DVT Prophylaxis: SCDs. Lovenox
Code Status: Full Code
Anticipated Discharge: Within 24 hours
Subjective/Interval History
-
Date of Service: October 07, 2024
Patient was seen and examined. She reported feeling as if her cough is better, denied any chest pain or shortness of breath.
Objective Data
-
Labs:
Laboratory Results
10/07/24
06:12
WBC 8.4
Hgb 13.6
Hct 41.5
Plt Count 150
Sodium 138
Potassium 3.9
Chloride 95 L
Carbon Dioxide 36 H
BUN 37 H
Creatinine 0.8
Glucose 132 H
Calcium 9.0
Total Bilirubin 0.6
AST 28
ALT 24
Alkaline Phosphatase 60
Vital Signs:
Vital Signs
Temp Pulse Resp BP Pulse Ox
97.9 F 64 16 168/91 95
10/07/24 07:20 10/07/24 07:20 10/07/24 07:20 10/07/24 07:20 10/07/24 07:20
I&O
10/06/24 10/07/24 10/08/24
06:59 06:59 06:59
Intake Total 1809 1210 / 1210
Balance 1809 1210 / 1210
[2024-10-07 14:56] VITALS: PULSE 70; PULSE 75; O2SAT 95
[2024-10-07] MEDS: MYRBETRIQ EXTENDED RELEASE 50 MG PO (15:03)
[2024-10-07 15:16] VITALS: BP 153/74
--- NOTE | 2024-10-07 15:58 | CM ---
Chart reviewed and counseling case manager spoke with Kamala at [facility] [phone] and per Kamala they have processed the referral to [facility] for patient and accepted patient. Plan is for to home with [facility] visiting nurses.
[facility] VN
[phone]
[2024-10-07] MEDS: OSCAL CAL 500 500 MG PO (17:27)
[2024-10-07 23:30] VITALS: BP 124/74
[2024-10-08] MEDS: ULTRAM 50 MG PO (02:37)
[2024-10-08 05:52] VITALS: BMI 36.1
[2024-10-08 07:07] LABS: % Basophils 0.1 % (0-2); % Lymphocytes 10.2 % (20.5-51.1); % Monocytes 7.8 % (1.7-9.3); % Neutrophils 80.9 % (42.2-75.2); ALT (SGPT) 30 U/L (0-35); AST (SGOT) 31 U/L (14-36); Absolute Immature Granulocytes 0.1 10^3/uL (0-0.05); Absolute Lymphocytes 0.8 10^3/uL (1.2-3.4); Absolute Monocytes 0.6 10^3/uL (0.1-0.6); Absolute Neutrophils 6.6 10^3/uL (1.4-6.5); Albumin 3.2 g/dl (3.5-5.0); Alkaline Phosphatase 59 U/L (38-126); Blood Urea Nitrogen 38 mg/dl (7-17); Calcium 8.8 mg/dl (8.4-10.2); Carbon Dioxide 34 mmol/L (22-30); Chloride 97 mmol/L (98-107); Estimated Creatinine Clearance 69 ml/min; Glucose 137 mg/dl (70-99); Hematocrit 40.1 % (37.0-47.0); Hemoglobin 13.3 g/dL (12.0-16.0); Mean Corp Hgb Conc. 33.2 g/dL (33.0-37.0); Mean Corpuscular Hgb 30.8 pg (27.0-31.0); Mean Corpuscular Volume 92.8 fL (81.0-99.0); Mean Platelet Volume 11.5 fL (7.4-10.4); Nucleated Red Blood Cells % 0 %; Platelet Count 141 10^3/uL (130-400); Red Blood Cell Count 4.32 10^6/uL (4.20-5.40); Red Cell Dist. Width 13.7 % (11.5-14.5); Sodium 138 mmol/L (135-145); Total Bilirubin 0.6 mg/dl (0.2-1.3); Total Protein 5.1 g/dl (6.3-8.2); White Blood Cell Count 8.1 10^3/uL (4.8-10.8); eGFR > 60.00
[2024-10-08 07:54] VITALS: BP 178/96
[2024-10-08] MEDS: PROTONIX 40 MG PO (08:50)
[2024-10-08] MEDS: DECADRON 6 MG PO (08:50)
[2024-10-08] MEDS: PRAVACHOL 40 MG PO (08:51)
[2024-10-08] MEDS: MS CONTIN (EXTENDED RELEASE) 15 MG PO ×2 (08:51→20:07)
[2024-10-08] MEDS: NEURONTIN 300 MG PO ×3 (08:51→21:53)
[2024-10-08] MEDS: ASPIR LOW (ENTERIC COATED) 81 MG PO (08:51)
[2024-10-08] MEDS: COZAAR 100 MG PO (08:52)
[2024-10-08] MEDS: INDERAL 80 MG PO (08:52)
[2024-10-08] MEDS: CELLCEPT 250 MG PO ×2 (08:52→20:07)
[2024-10-08] MEDS: APRESOLINE 10 MG PO ×2 (08:52→20:07)
[2024-10-08] MEDS: MIRALAX 17 GRAMS PO (08:53)
[2024-10-08] MEDS: LOPRESSOR 25 MG PO ×2 (08:53→20:07)
[2024-10-08] MEDS: DESENEX/MITRAZOL/ZEASORB 1 APPLIC TOPICAL ×2 (08:53→20:13)
[2024-10-08] MEDS: LASIX 20 MG PO (08:55)
[2024-10-08] MEDS: ROCALTROL 0.5 MCG PO (08:57)
--- NOTE | 2024-10-08 09:32 | W.PN.HOSP.TC ---
Today's Communication/Plan
-
Doing well
Per patient, everything should be set up at her home tomorrow so she will be ready for discharge tomorrow, and she requested additional PT today
Assessment / Plan
Assessment / Plan
Physical Exam
General: Comfortable and Conversant
HEENT: Anicteric, Moist mucous membranes
Respiratory: Clear and Non Labored Respirations. ON ROOM AIR saturating well.
Cardiac: S1/S2, Regular Rhythm and Regular Rate
GI: Soft and Non Tender. Positive bowel sounds.
Musculoskeletal: No Cyanosis and Other (+3 pitting edema bilateral lower extremities)
Skin: Warm and Dry
Neuro: Awake, Alert, Oriented and Other (Chronic bilateral foot drop)
Psych: Calm
Assessment/Plan
79 y/o female past medical history of nephrotic syndrome (on chronic Cellcept and Prednisone at home), minimal change disease, GERD, hypertension, hyperlipidemia, chronic pain with opioid dependence, overactive bladder, bilateral foot drop,
arthritis, who presented with nausea, fatigue and headache for 2 days. Patient reports sore throat started two days prior to presentation. On the day of presentation, she developed worsening headache associated with nausea prompting her to come to
the emergency department for evaluation. No cough or shortness of breath. She denied shortness of breath but was found to be hypoxic to 84% on room air upon arrival. She denied vomiting or diarrhea. She denied chest pain.
Acute Hypoxic Respiratory Insufficiency secondary to Acute COVID Viral Infection in immunocompromised patient
-Continue supplemental oxygen -- NOW WEANED TO ROOM AIR
-Continue Decadron 6mg Daily -- Day 1 was October 03, 2024
-Paxlovid given on October 03, 2024
-Completed 5-day Remdesivir course -- Day 1 was 10/04/24; monitor for side effects: bradycardia, hypotension, AST/ALT/Bilirubin effects
-I hillary questioned nephrology regarding whether there is any concern with patient getting Remdesivir given her Minimal Change Disease, and they said Remdesivir is not known to cause acute kidney injury
-Repeat CXR stable
-Home O2 assessment - based on PT note, patient does not qualify for home oxygen
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
-Continue Mycophenolate
-Continue Dexamethasone while hospitalized or 10 days (whichever is first, then taper back to home steroids)
Mild aortic stenosis
Mild aortic regurgitation
-Noted on echocardiogram this hospitalization
-See cardiology outpatient
Bilateral Lower Extremity Edema
-Checked bilateral lower extremity ultrasound -- no DVT
Subconjunctival Hemorrhage of Right Eye
-Artificial tears as needed
Essential Hypertension
-Continue hydralazine, losartan and metoprolol
Hyperlipidemia
-Continue statin
Osteoarthritis / Spinal Stenosis
Chronic Pain Syndrome with Opioid Dependence
-Continue gabapentin
-Continue morphine
Chronic Lower Extremity Edema
-Continue Lasix
DVT Prophylaxis: SCDs. Lovenox
Code Status: Full Code
Anticipated Discharge: Within 24 hours
Subjective/Interval History
-
Date of Service: October 08, 2024
Patient was seen and examined. She denied any new symptoms or complaints.
Objective Data
-
Labs:
Laboratory Results
10/08/24
05:32
WBC 8.1
Hgb 13.3
Hct 40.1
Plt Count 141
Sodium 138
Potassium 4.0
Chloride 97 L
Carbon Dioxide 34 H
BUN 38 H
Creatinine 0.8
Glucose 137 H
Calcium 8.8
Total Bilirubin 0.6
AST 31
ALT 30
Alkaline Phosphatase 59
Vital Signs:
Vital Signs
Temp Pulse Resp BP Pulse Ox
98.4 F 67 18 178/96 94
10/08/24 07:54 10/08/24 08:55 10/08/24 07:54 10/08/24 08:55 10/08/24 07:54
I&O
10/07/24 10/08/24 10/09/24
06:59 06:59 06:59
Intake Total 1210 / 1210 1200 / 1200
Balance 1210 / 1210 1200 / 1200
[2024-10-08 11:24] VITALS: BP 163/90
[2024-10-08] MEDS: VEKLURY 250 MG IV (11:39)
[2024-10-08] MEDS: MYRBETRIQ EXTENDED RELEASE 50 MG PO (14:07)
[2024-10-08 15:13] VITALS: BP 159/96
--- NOTE | 2024-10-08 15:13 | CM ---
CM following re: discharge planning.
Reviewed pt's chart, met with pt.
Pt lives alone in [facility] apartment, no steps, has 2 supportive children, daughter lives nearby and helps as needed, son lives in [place]. Pt reports she ambulates with a walker, wears braces, known to [facility].
PT and OT evaluations noted - home PT/OT recommended. Pt is aware, expressed her agreement and she requested [facility].
A referral to [facility] made. CM spoke to [facility] liaison and she confirmed that pt accepted for VN services.
According to pt will be be ready for discharge tomorrow 10/09/24. Pt is aware, expressed her agreement. IMM reviewed, placed on chart, pt has a copy. Pt stated she will need w/c van transport to get home. Pt is aware of the fees and she stated
she will pay.
Please arrange w/c van transport at discharge.
Please fax discharge instructions to Antony KRAMER at [phone]
D/C plan: return back home by W/C van with [facility] and family support.
CM will follow with discharge plan updates as hospitalization progresses
[2024-10-08] MEDS: OSCAL CAL 500 500 MG PO (17:58)
[2024-10-08 19:05] VITALS: BP 161/94
[2024-10-08 23:20] VITALS: BP 163/85
[2024-10-09 03:36] VITALS: BP 147/93
[2024-10-09] MEDS: TYLENOL 650 MG PO (03:44)
[2024-10-09 05:43] VITALS: BMI 35.4
[2024-10-09 06:44] LABS: % Basophils 0.2 % (0-2); % Immature Granulocytes 1.2 % (0-0.5); % Lymphocytes 10.9 % (20.5-51.1); % Neutrophils 79.7 % (42.2-75.2); Absolute Immature Granulocytes 0.1 10^3/uL (0-0.05); Absolute Monocytes 0.7 10^3/uL (0.1-0.6); Absolute Neutrophils 7.3 10^3/uL (1.4-6.5); Hematocrit 42.2 % (37.0-47.0); Hemoglobin 14.2 g/dL (12.0-16.0); Mean Corp Hgb Conc. 33.6 g/dL (33.0-37.0); Mean Corpuscular Volume 92.1 fL (81.0-99.0); Mean Platelet Volume 11.2 fL (7.4-10.4); Nucleated Red Blood Cells % 0 %; Platelet Count 156 10^3/uL (130-400); Red Blood Cell Count 4.58 10^6/uL (4.20-5.40); Red Cell Dist. Width 13.7 % (11.5-14.5); White Blood Cell Count 9.2 10^3/uL (4.8-10.8)
[2024-10-09 07:20] VITALS: BP 176/105
[2024-10-09 07:30] LABS: ALT (SGPT) 35 U/L (0-35); AST (SGOT) 31 U/L (14-36); Albumin 3.3 g/dl (3.5-5.0); Alkaline Phosphatase 66 U/L (38-126); Blood Urea Nitrogen 38 mg/dl (7-17); Calcium 8.9 mg/dl (8.4-10.2); Carbon Dioxide 37 mmol/L (22-30); Chloride 95 mmol/L (98-107); Estimated Creatinine Clearance 68 ml/min; Glucose 144 mg/dl (70-99); Magnesium 2.1 mg/dl (1.6-2.3); Sodium 137 mmol/L (135-145); Total Bilirubin 0.7 mg/dl (0.2-1.3); Total Protein 5.2 g/dl (6.3-8.2); eGFR > 60.00
[2024-10-09] MEDS: APRESOLINE 10 MG PO ×2 (08:36→19:48)
[2024-10-09] MEDS: PROTONIX 40 MG PO (08:36)
[2024-10-09] MEDS: DECADRON 6 MG PO (08:36)
[2024-10-09] MEDS: PRAVACHOL 40 MG PO (08:36)
[2024-10-09] MEDS: COZAAR 100 MG PO (08:36)
[2024-10-09] MEDS: ASPIR LOW (ENTERIC COATED) 81 MG PO (08:36)
[2024-10-09] MEDS: NEURONTIN 300 MG PO ×3 (08:36→22:26)
[2024-10-09] MEDS: LOPRESSOR 25 MG PO ×2 (08:36→19:48)
[2024-10-09] MEDS: CELLCEPT 250 MG PO ×2 (08:36→19:48)
[2024-10-09] MEDS: INDERAL 80 MG PO (08:37)
[2024-10-09] MEDS: MIRALAX 17 GRAMS PO (08:37)
[2024-10-09] MEDS: MS CONTIN (EXTENDED RELEASE) 15 MG PO ×2 (08:37→19:47)
[2024-10-09] MEDS: DESENEX/MITRAZOL/ZEASORB 1 APPLIC TOPICAL (08:39)
[2024-10-09 11:05] VITALS: BP 158/95
[2024-10-09 15:15] VITALS: BP 164/100
--- NOTE | 2024-10-09 16:15 | CM ---
Patient stable for d/c per hospitalist. Chart reviewed, patient referred to [facility] for services. Per hospitalist, patient has concerns going home as she lives alone and is needing some support. [facility] is not scheduled to start care w/ patient
until Friday.
CM spoke w/ patient's daughter, Ellen, who informed CM that her [id number] visited from [place] and is immobile and she is caring for him at this time so she is not able to stay w/ patient if she d/c today. Ellen stated her son is out of town
and won't be able to assist either unfortunately.
CM called [facility], spoke w/ someone to see if a nurse can come out today as patient does not have any home support today, unfortunately CM was told there are no available nurses today or tomorrow and the earliest they have is what is already
scheduled for on Friday.
Discussed w/ patient who stated she does not feel comfortable or safe going home without any support. Patient is aware VN is not going to come to her home everyday but she will also have PT/OT and aides throughout the week but since care cannot
start until Friday she is not agreeable to d/c today. Patient stated if the doctor place d/c order, she will appeal.
Discussed w/ hospitalist, will place d/c tomorrow as patient has no further needs to remain in the hospital and continued to remain prior to today in order for home care to be set up.
CM will deliver IMM once d/c has been placed
Plan: Patient plans to appeal d/c
--- NOTE | 2024-10-09 16:33 | W.PN.HOSP.TC ---
Today's Communication/Plan
-
Patient is medically ready for discharge, however, visiting nurse is not available until Friday10/11/24, and she has no one -- not even family to check in on her today or tomorrow if she goes home today. She stated that is unsafe for her to go home
today or tomorrow. She said that if she is discharged Friday, there will be either VN or PT/OT or someone coming to help her everyday. But she stated that given her limited mobility, she believes it is unsafe for her to be discharged today or
tomorrow with no assistance at home today or tomorrow.
Assessment / Plan
Assessment / Plan
Physical Exam
General: Comfortable and Conversant
HEENT: Anicteric, Moist mucous membranes
Respiratory: Clear and Non Labored Respirations. ON ROOM AIR saturating well.
Cardiac: S1/S2, Regular Rhythm and Regular Rate
GI: Soft and Non Tender. Positive bowel sounds.
Musculoskeletal: No Cyanosis and Other (+3 pitting edema bilateral lower extremities)
Skin: Warm and Dry
Neuro: Awake, Alert, Oriented and Other (Chronic bilateral foot drop)
Psych: Calm
Assessment/Plan
79 y/o female past medical history of nephrotic syndrome (on chronic Cellcept and Prednisone at home), minimal change disease, GERD, hypertension, hyperlipidemia, chronic pain with opioid dependence, overactive bladder, bilateral foot drop,
arthritis, who presented with nausea, fatigue and headache for 2 days. Patient reports sore throat started two days prior to presentation. On the day of presentation, she developed worsening headache associated with nausea prompting her to come to
the emergency department for evaluation. No cough or shortness of breath. She denied shortness of breath but was found to be hypoxic to 84% on room air upon arrival. She denied vomiting or diarrhea. She denied chest pain.
Acute Hypoxic Respiratory Insufficiency secondary to Acute COVID Viral Infection in immunocompromised patient
-Continue supplemental oxygen -- NOW WEANED TO ROOM AIR
-Continue Decadron 6mg Daily -- Day 1 was October 03, 2024 -- complete course for 10 days or until hospital discharge, whichever is sooner
-Paxlovid given on October 03, 2024
-Completed 5-day Remdesivir course -- Day 1 was 10/04/24; no side effects: bradycardia, hypotension, AST/ALT/Bilirubin effects
-I hillary questioned nephrology regarding whether there is any concern with patient getting Remdesivir given her Minimal Change Disease, and they said Remdesivir is not known to cause acute kidney injury
-Repeat CXR stable
-Home O2 assessment - based on PT note, patient does not qualify for home oxygen
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
-Patient sees Dr. Milad Gilbert tax manager public outpatient for this and for hypertension
-Continue Mycophenolate
-Continue Dexamethasone while hospitalized or 10 days (whichever is first, then taper back to home steroids)
Mild aortic stenosis
Mild aortic regurgitation
-Noted on echocardiogram this hospitalization
-See cardiology outpatient
Bilateral Lower Extremity Edema
-Checked bilateral lower extremity ultrasound -- no DVT
Subconjunctival Hemorrhage of Right Eye
-Artificial tears as needed
Essential Hypertension
-Continue hydralazine, losartan and metoprolol
Hyperlipidemia
-Continue statin
Osteoarthritis / Spinal Stenosis
Chronic Pain Syndrome with Opioid Dependence
-Continue gabapentin
-Continue morphine
Chronic Lower Extremity Edema
-Continue Lasix
DVT Prophylaxis: SCDs. Lovenox
Code Status: Full Code
Patient is medically ready for discharge, however, visiting nurse is not available until Friday10/11/24, and she has no one -- not even family to check in on her today or tomorrow if she goes home today. She said that if she is discharged Friday,
there will be either VN or PT/OT or someone coming to help her everyday. But she stated that given her limited mobility, she believes it is unsafe for her to be discharged today or tomorrow with no assistance at home today or tomorrow.
Anticipated Discharge: 24 - 48 hours
Subjective/Interval History
-
Date of Service: October 09, 2024
Patient was seen and examined. She reported feeling fine, denied any complaints.
Objective Data
-
Labs:
Laboratory Results
10/09/24
06:25
WBC 9.2
Hgb 14.2
Hct 42.2
Plt Count 156
Sodium 137
Potassium 4.0
Chloride 95 L
Carbon Dioxide 37 H
BUN 38 H
Creatinine 0.8
Glucose 144 H
Calcium 8.9
Total Bilirubin 0.7
AST 31
ALT 35
Alkaline Phosphatase 66
Vital Signs:
Vital Signs
Temp Pulse Resp BP Pulse Ox
97.7 F 70 16 164/100 95
10/09/24 15:15 10/09/24 15:15 10/09/24 15:15 10/09/24 15:15 10/09/24 15:15
I&O
10/08/24 10/09/24 10/10/24
06:59 06:59 06:59
Intake Total 1200 / 1200 660 / 660
Balance 1200 / 1200 660 / 660
[2024-10-09] MEDS: OSCAL CAL 500 500 MG PO (17:25)
[2024-10-09] MEDS: MYRBETRIQ EXTENDED RELEASE 50 MG PO (17:25)
[2024-10-09 19:15] VITALS: BP 131/89
[2024-10-09] MEDS: DESENEX/MITRAZOL/ZEASORB TOPICAL (19:52)
[2024-10-09 23:15] VITALS: BP 122/70
[2024-10-10 03:47] VITALS: BP 128/69
[2024-10-10 05:35] VITALS: BMI 35.4
[2024-10-10 06:00] VITALS: BMI 35.4
[2024-10-10 07:20] VITALS: BP 169/92
[2024-10-10] MEDS: ASPIR LOW (ENTERIC COATED) 81 MG PO (08:11)
[2024-10-10] MEDS: MS CONTIN (EXTENDED RELEASE) 15 MG PO ×2 (08:11→20:28)
[2024-10-10] MEDS: DECADRON 6 MG PO (08:11)
[2024-10-10] MEDS: INDERAL 80 MG PO (08:11)
[2024-10-10] MEDS: CELLCEPT 250 MG PO ×2 (08:11→20:28)
[2024-10-10] MEDS: PROTONIX 40 MG PO (08:11)
[2024-10-10] MEDS: COZAAR 100 MG PO (08:12)
[2024-10-10] MEDS: NEURONTIN 300 MG PO ×3 (08:12→22:31)
[2024-10-10] MEDS: PRAVACHOL 40 MG PO (08:16)
[2024-10-10] MEDS: APRESOLINE 10 MG PO ×2 (08:16→20:28)
[2024-10-10] MEDS: LOPRESSOR 25 MG PO ×2 (08:16→20:28)
[2024-10-10] MEDS: DESENEX/MITRAZOL/ZEASORB 1 APPLIC TOPICAL ×2 (08:18→20:27)
[2024-10-10] MEDS: MIRALAX PO (08:18)
[2024-10-10 11:10] VITALS: BP 146/85
[2024-10-10 15:20] VITALS: BP 104/63
[2024-10-10] MEDS: MYRBETRIQ EXTENDED RELEASE 50 MG PO (15:37)
[2024-10-10] MEDS: OSCAL CAL 500 500 MG PO (17:33)
[2024-10-10 19:10] VITALS: BP 120/70
--- NOTE | 2024-10-10 21:00 | W.PN.HOSP.TC ---
Today's Communication/Plan
-
Stable
Complete Dexamethasone 10 day course OR until hospital discharge, whichever is sooner
Patient is medically ready for discharge, however, visiting nurse is not available until Friday10/11/24, and she has no one -- not even family to check in on her today or tomorrow if she goes home today. She said that if she is discharged Friday,
there will be either VN or PT/OT or someone coming to help her everyday, starting Friday. But she stated that given her limited mobility, she believes it is unsafe for her to be discharged today with no assistance at home today.
Assessment / Plan
Assessment / Plan
Physical Exam
General: Comfortable and Conversant
HEENT: Anicteric, Moist mucous membranes
Respiratory: Clear and Non Labored Respirations. ON ROOM AIR saturating well.
Cardiac: S1/S2, Regular Rhythm and Regular Rate
GI: Soft and Non Tender. Positive bowel sounds.
Musculoskeletal: No Cyanosis and Other (+3 pitting edema bilateral lower extremities)
Skin: Warm and Dry
Neuro: Awake, Alert, Oriented and Other (Chronic bilateral foot drop)
Psych: Calm
Assessment/Plan
79 y/o female past medical history of nephrotic syndrome (on chronic Cellcept and Prednisone at home), minimal change disease, GERD, hypertension, hyperlipidemia, chronic pain with opioid dependence, overactive bladder, bilateral foot drop,
arthritis, who presented with nausea, fatigue and headache for 2 days. Patient reports sore throat started two days prior to presentation. On the day of presentation, she developed worsening headache associated with nausea prompting her to come to
the emergency department for evaluation. No cough or shortness of breath. She denied shortness of breath but was found to be hypoxic to 84% on room air upon arrival. She denied vomiting or diarrhea. She denied chest pain.
Acute Hypoxic Respiratory Insufficiency secondary to Acute COVID Viral Infection in immunocompromised patient
-Continue supplemental oxygen -- NOW WEANED TO ROOM AIR
-Continue Decadron 6mg Daily -- Day 1 was October 03, 2024 -- complete course for 10 days or until hospital discharge, whichever is sooner
-Paxlovid given on October 03, 2024
-Completed 5-day Remdesivir course -- Day 1 was 10/04/24; no side effects of bradycardia, hypotension, AST/ALT/Bilirubin effects seen
-I hillary questioned nephrology regarding whether there is any concern with patient getting Remdesivir given her Minimal Change Disease, and they said Remdesivir is not known to cause acute kidney injury
-Repeat CXR stable
-Home O2 assessment - based on PT note, she dropped to 89% while talking and walking, so patient does not qualify for home oxygen
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
-Patient sees Dr. Milad Gilbert agency cashier outpatient for this and for hypertension
-Continue Mycophenolate
-Continue Dexamethasone while hospitalized or 10 days (whichever is first, then taper back to home steroids)
Mild aortic stenosis
Mild aortic regurgitation
-Noted on echocardiogram this hospitalization
-See cardiology outpatient
Bilateral Lower Extremity Edema
-Checked bilateral lower extremity ultrasound: no DVT
Subconjunctival Hemorrhage of Right Eye
-Artificial tears as needed
Essential Hypertension
-Continue hydralazine, losartan and metoprolol
Hyperlipidemia
-Continue statin
Osteoarthritis / Spinal Stenosis
Chronic Pain Syndrome with Opioid Dependence
-Continue gabapentin
-Continue morphine
Chronic Lower Extremity Edema
-Continue Lasix
DVT Prophylaxis: SCDs. Lovenox
Code Status: Full Code
Patient is medically ready for discharge, however, visiting nurse is not available until Friday10/11/24, and she has no one -- not even family to check in on her today or tomorrow if she goes home today. She said that if she is discharged Friday,
there will be either VN or PT/OT or someone coming to help her everyday, starting Friday. But she stated that given her limited mobility, she believes it is unsafe for her to be discharged today with no assistance at home today.
Anticipated Discharge: Within 24 hours
Subjective/Interval History
-
Date of Service: October 10, 2024
Patient was seen and examined. She denied any new symptoms or complaints.
Objective Data
-
Vital Signs:
Vital Signs
Temp Pulse Resp BP Pulse Ox
97.7 F 69 16 120/70 96
10/10/24 19:10 10/10/24 20:28 10/10/24 19:10 10/10/24 20:28 10/10/24 19:10
I&O
10/09/24 10/10/24 10/11/24
06:59 06:59 06:59
Intake Total 660 / 660 360 / 360 960 / 960
Balance 660 / 660 360 / 360 960 / 960
[2024-10-10 22:25] VITALS: BP 117/68
[2024-10-10] MEDS: ZOVIRAX OINTMENT 5% 1 APPLIC TOPICAL (22:33)
[2024-10-11] VITALS (7 sets, daily range): BP systolic 109–183; BP diastolic 55–100; PULSE 80; O2SAT 97; BMI 35.3
[2024-10-11] MEDS: PROTONIX 40 MG PO (08:59)
[2024-10-11] MEDS: APRESOLINE 10 MG PO (08:59)
[2024-10-11] MEDS: ASPIR LOW (ENTERIC COATED) 81 MG PO (09:00)
[2024-10-11] MEDS: CELLCEPT 250 MG PO ×2 (09:00→20:49)
[2024-10-11] MEDS: MS CONTIN (EXTENDED RELEASE) 15 MG PO ×2 (09:00→20:49)
[2024-10-11] MEDS: MIRALAX PO (09:00)
[2024-10-11] MEDS: INDERAL 80 MG PO (09:00)
[2024-10-11] MEDS: COZAAR 100 MG PO (09:00)
[2024-10-11] MEDS: LOPRESSOR 25 MG PO ×2 (09:01→20:49)
[2024-10-11] MEDS: DECADRON 6 MG PO (09:01)
[2024-10-11] MEDS: PRAVACHOL 40 MG PO (09:01)
[2024-10-11] MEDS: NEURONTIN 300 MG PO ×3 (09:01→20:49)
[2024-10-11] MEDS: DESENEX/MITRAZOL/ZEASORB 1 APPLIC TOPICAL ×2 (09:02→20:50)
[2024-10-11] MEDS: LASIX PO ×2 (09:04)
[2024-10-11] MEDS: ZOVIRAX OINTMENT 5% 1 APPLIC TOPICAL ×4 (09:05→20:50)
[2024-10-11] MEDS: ROCALTROL 0.5 MCG PO (09:05)
--- NOTE | 2024-10-11 11:13 | CM ---
Addendum entered by Long Odom 10/11/24 12:44:
[facility] and [facility] SNF offered a bed. pt is aware and she preferred [facility].
KUNAL initiated an auth with carmela Salgado, spoke to upper caser April, and based on pt's clinical pt is approved for SNF level of care at [facility] from today 10/11/24 till 10/15/24 with LCD and NRD 10/15/24. Auth: [id number], For additions days:
phone [phone].
[facility] nursing report: [phone]
Discharge instructions fax: [phone].
Pt requested w/c van to transport to [facility].
Per MD, pt will not be discharged today but tomorrow.
[facility] director of research center is aware of pt's discharge rescheduled for tomorrow 10/12/24.
D/C plan: [facility] tomorrow .
Original Note:
KUNAL following re: discharge planning.
Reviewed pt's chart, met with pt.
Pt lives alone in [facility] apartment, no steps, has 2 supportive children, daughter lives nearby and helps as needed, son lives in [place]. Pt reports she ambulates with a walker, wears braces, known to [facility].
According to pt is medically stable to be discharged. Pt is aware, expressed her agreement. IMM reviewed, placed on chart, pt has a copy.
Pt expressed to me her fears of going home stating she fels unsafe at home and at the same tome pt preferred to return back home. pt stated she is on conversation with [facility] and [facility] RN will not come to her house today and pt stated she is
requested [facility] VN services starts on the day of discharge. KUNAL explained to the pt Medicare requirements as for starting VN after care services. CM spoke to [facility] VN liaison Kamala and she confirmed they will start services within 48 hours of
discharge, not the same day of discharge and not next day of discharge. Pt sttaed she is becoming weaker and weaker being in the hospital.
SNF level of care has been discussed with the pt, pt expressed her agreement and following SNFs requested: [facility], [facility], [facility], [facility] and [facility]. A referral to above SNFs made. Awaiting for determination.
PT and OT evaluations noted - SNF level of care recommended.
Pt requested w/c van transport at discharge.
PD/C plan: preferred SNF.
CM will follow to assist pt with discharge to a preferred SNF.
--- NOTE | 2024-10-11 16:02 | W.PN.HOSP.TC ---
Today's Communication/Plan
-
Complaints of dysuria started overnight.
Concern for UTI in immunosuppressed patient
Will check urinalysis and reflex to culture.
Discharge planing. Patient agree for long-term facility rehab pending above.
Assessment / Plan
Assessment / Plan
Assessment/Plan
79 y/o female past medical history of nephrotic syndrome (on chronic Cellcept and Prednisone at home), minimal change disease, GERD, hypertension, hyperlipidemia, chronic pain with opioid dependence, overactive bladder, bilateral foot drop,
arthritis, who presented with nausea, fatigue and headache for 2 days. Patient reports sore throat started two days prior to presentation. On the day of presentation, she developed worsening headache associated with nausea prompting her to come to
the emergency department for evaluation. No cough or shortness of breath. She denied shortness of breath but was found to be hypoxic to 84% on room air upon arrival. She denied vomiting or diarrhea. She denied chest pain.
Acute Hypoxic Respiratory Insufficiency secondary to Acute COVID Viral Infection in immunocompromised patient
-Continue supplemental oxygen -- NOW WEANED TO ROOM AIR
-Continue Decadron 6mg Daily -- Day 1 was October 03, 2024 -- complete course for 10 days or until hospital discharge, whichever is sooner
-Paxlovid given on October 03, 2024
-Completed 5-day Remdesivir course -- Day 1 was 10/04/24; no side effects of bradycardia, hypotension, AST/ALT/Bilirubin effects seen
-I hillary questioned nephrology regarding whether there is any concern with patient getting Remdesivir given her Minimal Change Disease, and they said Remdesivir is not known to cause acute kidney injury
-Repeat CXR stable
-Home O2 assessment - based on PT note, she dropped to 89% while talking and walking, so patient does not qualify for home oxygen
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
-Patient sees Dr. Milad Gilbert magazine designer outpatient for this and for hypertension
-Continue Mycophenolate
-Continue Dexamethasone while hospitalized or 10 days (whichever is first, then taper back to home steroids)
Mild aortic stenosis
Mild aortic regurgitation
-Noted on echocardiogram this hospitalization
-See cardiology outpatient
Bilateral Lower Extremity Edema
-Checked bilateral lower extremity ultrasound: no DVT
Subconjunctival Hemorrhage of Right Eye
-Artificial tears as needed
Essential Hypertension
-Continue hydralazine, losartan and metoprolol
Hyperlipidemia
-Continue statin
Osteoarthritis / Spinal Stenosis
Chronic Pain Syndrome with Opioid Dependence
-Continue gabapentin
-Continue morphine
Chronic Lower Extremity Edema
-Continue Lasix
DVT Prophylaxis: SCDs. Lovenox
Code Status: Full Code
Anticipated Discharge: 24 - 48 hours
Subjective/Interval History
-
Date of Service: October 11, 2024
Objective Data
-
Vital Signs:
Vital Signs
Temp Pulse Resp BP Pulse Ox
98.4 F 67 16 127/74 98
10/11/24 11:00 10/11/24 11:00 10/11/24 11:00 10/11/24 11:00 10/11/24 11:00
I&O
10/10/24 10/11/24 10/12/24
06:59 06:59 06:59
Intake Total 360 / 360 960 / 960
Balance 360 / 360 960 / 960
Physical Exam
-
General: No Apparent Distress
HEENT: Moist Mucous Membranes
Respiratory: Clear to Auscultation
Cardiac: Regular Rhythm and S1/S2
GI: Soft
Neuro: AO x 3
Psych: Calm; Negative Confused
[2024-10-11] MEDS: MYRBETRIQ EXTENDED RELEASE 50 MG PO (16:06)
[2024-10-11] MEDS: ZOVIRAX OINTMENT 5% TOPICAL (17:37)
[2024-10-11] MEDS: OSCAL CAL 500 500 MG PO (17:56)
[2024-10-11] MEDS: TYLENOL 650 MG PO (18:00)
[2024-10-11] MEDS: APRESOLINE PO (20:49)
[2024-10-12 03:21] VITALS: BP 110/83
[2024-10-12 06:00] VITALS: BMI 35.4
[2024-10-12 07:00] VITALS: BP 169/88
[2024-10-12] MEDS: MS CONTIN (EXTENDED RELEASE) 15 MG PO (08:50)
[2024-10-12] MEDS: LOPRESSOR 25 MG PO (08:50)
[2024-10-12] MEDS: MIRALAX PO (08:50)
[2024-10-12] MEDS: COZAAR 100 MG PO (08:50)
[2024-10-12] MEDS: PROTONIX 40 MG PO (08:51)
[2024-10-12] MEDS: APRESOLINE 10 MG PO (08:51)
[2024-10-12] MEDS: ASPIR LOW (ENTERIC COATED) 81 MG PO (08:51)
[2024-10-12] MEDS: INDERAL 80 MG PO (08:51)
[2024-10-12] MEDS: NEURONTIN 300 MG PO (08:51)
[2024-10-12] MEDS: DECADRON 6 MG PO (08:52)
[2024-10-12] MEDS: DESENEX/MITRAZOL/ZEASORB 1 APPLIC TOPICAL (08:52)
[2024-10-12] MEDS: ZOVIRAX OINTMENT 5% 1 APPLIC TOPICAL (08:52)
[2024-10-12] MEDS: PRAVACHOL 40 MG PO (08:52)
[2024-10-12] MEDS: CELLCEPT 250 MG PO (08:52)
[2024-10-12 09:32] LABS: Urine Albumin Negative (Neg - Trace); Urine Bilirubin Negative (Negative); Urine Character Clear (Clear); Urine Color Yellow; Urine Glucose 3+ (Negative); Urine Ketone Negative (Negative); Urine Leukocyte 3+ (Negative); Urine Nitrite Negative (Negative); Urine Occult Blood Negative (Negative); Urine Urobilinogen 1+ (Neg - 1+)
[2024-10-12 10:35] LABS: Urine Amorphous Seen; Urine Squamous Cell >30 /LPF (Few); Urine Urothelial Cell 21-25 /LPF (FEW)
[2024-10-12 10:37] LABS: Urine White Cell 70-80 /HPF (0-5)
--- NOTE | 2024-10-12 11:14 | W.DS.TRANS ---
DC Summary - Yoga Instructor
-
Discharge Instructions:
Discharge Diagnosis/Procedures COVID viral syndrome
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
Chronic immunosuppression
Diet 2 Gram Sodium
Instructions:
Stand-Alone Forms:
Changes to Home Medications: Yes
Discharge Medications:
DC Medications w/original date entered in I.Predictus
aspirin 81 mg tablet,delayed release 81 mg PO DAILY Blood Clot Prevention/Tx 11/25/22
calcitriol 0.5 mcg capsule 0.5 mcg PO MOWEFR Supplement 11/25/22
calcium carbonate 500 mg PO QPM Supplement 11/25/22
coenzyme Q10 100 mg capsule (Co Q-10) 100 mg PO QPM 11/25/22
gabapentin 300 mg capsule 300 mg PO TID Neurological Condition 11/25/22
glucosamine-chondroitin 250 mg-200 mg tablet 1 tab PO DAILY 11/25/22
losartan 100 mg tablet 100 mg PO DAILY Blood Pressure 11/25/22
mirabegron 50 mg tablet,extended release 24 hr (Myrbetriq) 50 mg PO DAILY@1500 Urinary Issue 11/25/22
mycophenolate mofetil 250 mg capsule 250 mg PO BID 11/25/22
metoprolol tartrate 25 mg tablet 25 mg PO BID #1 tab 11/30/22
acetaminophen 650 mg tablet,extended release 650 mg PO DAILYPRN PRN mild pain 10/03/24
cranberry fruit 450 mg tablet (cranberry) 450 mg PO DAILY 10/03/24
docusate sodium 100 mg capsule 100 mg PO DAILY constipation 10/03/24
furosemide 20 mg tablet 20 mg PO MOWEFR 10/03/24
hydralazine 10 mg tablet 10 mg PO BID 10/03/24
omeprazole 20 mg capsule,delayed release 20 mg PO DAILY 10/03/24
polyethylene glycol 3350 17 gram oral powder packet 17 g PO DAILY 10/03/24
pravastatin 40 mg tablet 40 mg PO DAILY 10/03/24
prednisone 10 mg tablet 10 mg PO DAILY 10/03/24
propranolol 40 mg tablet 80 mg PO DAILY 10/03/24
therapeutic multivitamin 1 tab PO DAILY 10/03/24
turmeric root extract 500 mg capsule 500 mg PO DAILY 10/03/24
cephalexin 500 mg capsule 500 mg PO BID 5 days #10 caps 10/12/24
morphine 15 mg tablet,extended release 15 mg PO BID #6 tabs 10/12/24
tramadol 50 mg tablet 50 mg PO BIDPRN PRN moderate pain #14 tabs 10/12/24
Home Medication Changes
Empiric Keflex for uncomplicated UTI
Pending Results: Yes
Additional Pending Results:
urine culture
[2024-10-12] MEDS: KEFLEX 500 MG PO (11:24)
[2024-10-12] MEDS: ZOVIRAX OINTMENT 5% TOPICAL (11:25)
--- NOTE | 2024-10-12 11:48 | PTCARENOTE ---
urine sample sent. pt started on keflex PO bid. pt oob to chair with b/l leg braces. pt uses rolling walker at baseline as well. pt to d.c today to [facility]. as of today off covid precautions.
--- NOTE | 2024-10-12 12:01 | CM ---
CM following re: discharge planning.
Reviewed pt's chart, met with pt.
Discharge order noted. Pt is aware, expressed her agreement with discharge. IMM reviewed yesterday.
CM spoke to [facility] college admissions counselor and she confirmed that pt is accepted for admission today.
Pt is approved for SNF level of care at [facility] from today 10/11/24 till 10/15/24 with LCD and NRD 10/15/24. Auth: [id number], For additions days: phone [phone].
[facility] nursing report: [phone]
Discharge instructions fax: [phone].
Pt requested w/c van to transport to [facility]. to arrange w/c van. Pt is aware of fees and she stated she will pay.
D/C plan: [facility] today.
[2024-10-12 12:49] VITALS: BP 138/74
== END 2024-10-12 13:31 | DRG 178 ==
LOC: 2 NORTH 12:56
PROVIDERS: Hospitalist; Physician Assistant Medical; ADMITTING PHYSICIAN Hospitalist; ATTENDING PHYSICIAN Internal Medicine; EMERGENCY PHYSICIAN Emergency Medicine; FAMILY PHYSICIAN Nurse Practitioner Family
DX: U07.1 COVID-19 (principal); D84.821 Immunodeficiency due to drugs; N04.0 Nephrotic syndrome with minor glomerular abnormality; F11.20 Opioid dependence, uncomplicated; N39.0 Urinary tract infection, site not specified; R09.02 Hypoxemia; K21.9 Gastro-esophageal reflux disease without esophagitis; E78.00 Pure hypercholesterolemia, unspecified; I12.9 Hypertensive chronic kidney disease with stage 1 through stage 4 chronic kidney disease, or unspecified chronic kidney disease; N18.9 Chronic kidney disease, unspecified; G89.4 Chronic pain syndrome; Z79.60 Long term (current) use of unspecified immunomodulators and immunosuppressants; M19.90 Unspecified osteoarthritis, unspecified site; M48.00 Spinal stenosis, site unspecified; E88.01 Alpha-1-antitrypsin deficiency; M21.371 Foot drop, right foot; M21.372 Foot drop, left foot; N32.81 Overactive bladder
CPT/HCPCS: 70450; 71046; 80048; 80053; 81003; 81015; 83735; 83880; 84484; 85025; 85027; 86803; 87086; 87502; 87811; 93005; 93306; 93970; 96374; 97116; 97163; 97530; 99285; J0248

== ENCOUNTER → 2024-10-21 12:46 | Outpatient (REF) | payer OTHER, SELFPAY ==
[2024-10-21 13:33] LABS: % Basophils 0.5 % (0-2); % Eosinophils 0.9 % (0-6); % Immature Granulocytes 1.2 % (0-0.5); % Lymphocytes 30.8 % (20.5-51.1); % Monocytes 8.7 % (1.7-9.3); % Neutrophils 57.9 % (42.2-75.2); ALT (SGPT) 37 U/L (0-35); AST (SGOT) 26 U/L (14-36); Absolute Eosinophils 0.1 10^3/uL (0-0.7); Absolute Immature Granulocytes 0.1 10^3/uL (0-0.05); Absolute Lymphocytes 2.7 10^3/uL (1.2-3.4); Absolute Monocytes 0.8 10^3/uL (0.1-0.6); Albumin 3.5 g/dl (3.5-5.0); Alkaline Phosphatase 81 U/L (38-126); Blood Urea Nitrogen 35 mg/dl (7-17); Calcium 9.1 mg/dl (8.4-10.2); Carbon Dioxide 33 mmol/L (22-30); Chloride 100 mmol/L (98-107); Glucose 92 mg/dl (70-99); Hematocrit 41.7 % (37.0-47.0); Hemoglobin 13.3 g/dL (12.0-16.0); Mean Corp Hgb Conc. 31.9 g/dL (33.0-37.0); Mean Corpuscular Hgb 30.9 pg (27.0-31.0); Mean Platelet Volume 12.2 fL (7.4-10.4); Nucleated Red Blood Cells % 0 %; Platelet Count 135 10^3/uL (130-400); Potassium 4.6 mmol/L (3.5-5.1); Sodium 138 mmol/L (135-145); Total Bilirubin 0.5 mg/dl (0.2-1.3); Total Protein 5.6 g/dl (6.3-8.2); White Blood Cell Count 8.6 10^3/uL (4.8-10.8); eGFR > 60.00
== END ==
LOC: OLABP 12:46
PROVIDERS: ATTENDING PHYSICIAN Family Medicine
DX: N04.0 Nephrotic syndrome with minor glomerular abnormality (principal); M19.90 Unspecified osteoarthritis, unspecified site; M48.00 Spinal stenosis, site unspecified; I10 Essential (primary) hypertension; R60.0 Localized edema
CPT/HCPCS: 36415; 80053; 85025

== ENCOUNTER → 2024-10-26 16:20 | Outpatient (REF) | payer OTHER, SELFPAY ==
[2024-10-26 17:26] LABS: Blood Urea Nitrogen 30 mg/dl (7-17); Calcium 9.3 mg/dl (8.4-10.2); Carbon Dioxide 29 mmol/L (22-30); Chloride 102 mmol/L (98-107); Glucose 140 mg/dl (70-99); Potassium 4.9 mmol/L (3.5-5.1); Sodium 136 mmol/L (135-145); eGFR > 60.00
[2024-10-26 17:39] LABS: % Basophils 0.7 % (0-2); % Eosinophils 0.9 % (0-6); % Immature Granulocytes 0.9 % (0-0.5); % Lymphocytes 13.7 % (20.5-51.1); % Monocytes 4.5 % (1.7-9.3); % Neutrophils 79.3 % (42.2-75.2); Absolute Basophils 0.1 10^3/uL (0-0.2); Absolute Eosinophils 0.1 10^3/uL (0-0.7); Absolute Immature Granulocytes 0.1 10^3/uL (0-0.05); Absolute Lymphocytes 1.2 10^3/uL (1.2-3.4); Absolute Monocytes 0.4 10^3/uL (0.1-0.6); Absolute Neutrophils 7.1 10^3/uL (1.4-6.5); Hematocrit 41.3 % (37.0-47.0); Hemoglobin 13.5 g/dL (12.0-16.0); Mean Corp Hgb Conc. 32.7 g/dL (33.0-37.0); Mean Corpuscular Volume 94.7 fL (81.0-99.0); Mean Platelet Volume 11.6 fL (7.4-10.4); Nucleated Red Blood Cells % 0 %; Platelet Count 128 10^3/uL (130-400); Red Blood Cell Count 4.36 10^6/uL (4.20-5.40); Red Cell Dist. Width 14.6 % (11.5-14.5); White Blood Cell Count 8.9 10^3/uL (4.8-10.8)
[2024-10-26 17:49] LABS: Urine Albumin 1+ (Neg - Trace); Urine Bilirubin Negative (Negative); Urine Character Slightly Cloudy (Clear); Urine Color Yellow; Urine Glucose Negative (Negative); Urine Ketone Negative (Negative); Urine Leukocyte 3+ (Negative); Urine Nitrite Negative (Negative); Urine Occult Blood 1+ (Negative); Urine Urobilinogen Negative (Neg - 1+)
[2024-10-26 18:11] LABS: Urine Squamous Cell >30 /LPF (Few); Urine Urothelial Cell >30 /LPF (FEW)
[2024-10-26 18:12] LABS: Urine Bacteria Moderate (Negative); Urine White Cell 21-25 /HPF (0-5)
== END ==
LOC: OLABP 16:20
PROVIDERS: ATTENDING PHYSICIAN Family Medicine
DX: U07.1 COVID-19 (principal); N04.0 Nephrotic syndrome with minor glomerular abnormality; D84.9 Immunodeficiency, unspecified; F11.20 Opioid dependence, uncomplicated; H11.31 Conjunctival hemorrhage, right eye; R09.02 Hypoxemia; I10 Essential (primary) hypertension; E78.5 Hyperlipidemia, unspecified; R60.0 Localized edema; I35.0 Nonrheumatic aortic (valve) stenosis; M19.90 Unspecified osteoarthritis, unspecified site; M48.00 Spinal stenosis, site unspecified
CPT/HCPCS: 36415; 80048; 81003; 81015; 85025; 87086; 87088; 87186

== ENCOUNTER 2025-01-23 22:29 | Emergency (ER) | payer OTHER, SELFPAY ==
[2025-01-23 22:30] VITALS: BP 140/91
--- NOTE | 2025-01-24 01:31 | ED.GENMED ---
History of Present Illness
General
Chief Complaint: Skin Surface Trauma
Source: patient
Exam Limitations: none
Time Seen by Provider: 01/24/25 01:22
History of Present Illness
History of Present Illness:
See MDM
Past History
Past History
ED Past Medical History: GERD, HTN, Hypercholesterolemia and Other (UTI, )
ED Past Surgical History: Appendectomy, Gynecological (D&C), Tonsilectomy and Other (Cataracts, Hemorrhoids. )
Patient has exhibited threatening behavior?: No
Social History
Tobacco: Non-smoker
Alcohol: None
Drug: None
Personal:
Living: alone
Phy Exam
Physical Exam
Physical Exam:
See MDM
Course
Vital Signs
Initial and Last Documented VS:
Initial Vital Signs
Temp Pulse Resp BP Pulse Ox
98.7 F 83 18 140/91 94
01/23/25 22:30 01/23/25 22:30 01/23/25 22:30 01/23/25 22:30 01/23/25 22:30
Last Documented Vital Signs
Temp Pulse Resp BP Pulse Ox
98.7 F 83 18 140/91 94
01/23/25 22:30 01/23/25 22:30 01/23/25 22:30 01/23/25 22:30 01/23/25 22:30
Procedures
Laceration Closure
Right Anterior Distal Leg:
Status of Wound: appears infected
Size of Wound in cm: 3
Description of Wound Edges: sharp
Preparation: cleaned with soap & water
Revision/Debridement: routine- no revision
Wound exploration: explored to base- no FB
Type of Closure: Dermabond-skin glue
MDM/Problems Addressed
Differential Diagnosis Includes:
Note:
CHIEF COMPLAINT(S)
Laceration to the leg.
HISTORY OF PRESENT ILLNESS
The patient is a 79-year-old female who presented with a laceration on her leg. While putting a trash bag into a trash can, she felt something cut her leg, though she did not immediately note its significance. She noticed bleeding but reports that
the bleeding had stopped by the time she noticed it. However, she observed continued fluid discharge from the site, which aligns with her history of peripheral edema. She notes chronic leg swelling and is currently taking 20 mg of Furosemide (Lasix)
daily. The patient confirmed her tetanus immunization is up to date. She did not arrive by ambulance but came from her apartment.
The physical exam revealed a superficial cut with significant fluid discharge likely due to chronic edema. The provider plans to seal the wound using topical skin glue to manage the discharge. The patient denies frequent skin infections and does not
express concern for other complications.
CHRONIC MEDICAL CONDITIONS SIGNIFICANTLY AFFECTING CARE
Chronic edema managed with Furosemide (Lasix).
IMMUNIZATION HISTORY
Tetanus immunization is up to date.
PHYSICAL EXAM
General: Alert, no acute distress.
Skin: Warm, dry. 3 cm superficial laceration to distal aspect of right anterior leg. No active bleeding
Head: Normocephalic, atraumatic
Neck: Appears supple, trachea midline.
Eyes, Ears, Nose, Mouth, and Throat: Oral mucosa moist.
Cardiovascular: No signs of cyanosis
Respiratory: Respirations are non-labored.
Abdomen: Non-distended
Musculoskeletal: Chronic edema to bilateral legs. Mild oozing of fluid to the mentioned laceration
Neurological: No focal neurological deficit observed.
Psychiatric: Cooperative, appropriate mood and affect.
PLAN
1. Application of topical skin glue to the wound to prevent further fluid leakage and promote healing.
2. Patient instructed on care of the wound and signs of infection to monitor.
3. Arrange for a follow-up appointment if there is no improvement or if signs of infection develop.
4. Confirmed tetanus immunization status, no need for booster.
DIFFERENTIAL DIAGNOSIS
The Differential Diagnosis includes, in no particular order and is not limited to:
1. Venous stasis dermatitis
2. Lymphedema
3. Cellulitis
4. Erysipelas
5. Allergic reaction
6. Contact dermatitis
7. Laceration-related infection
8. Chronic venous insufficiency
9. Deep vein thrombosis
10. Eczema
Disposition:
SUMMARY OF ENCOUNTER
The patient presented to the emergency department with a 3 cm superficial laceration on the distal right anterior leg, primarily concerned about fluid leakage related to her chronic edema. The wound was managed by drying it with gauze and applying
skin adhesive (Dermabond) to seal the cut and stop the leakage.
DISPOSITION
Discharge.
ASSESSMENT
The patient has a superficial leg laceration with fluid discharge exacerbated by chronic edema.
PLAN
1. Application of topical skin adhesive to seal the wound.
2. Patient education on monitoring the wound for signs of infection.
3. Dressing applied to the wound.
MEDICATION RECONCILIATION
- Furosemide 20 mg for edema (patient was already on this medication).
MEDICAL DECISION MAKING
- Complexity of Data Reviewed:
- Chronic conditions affecting care: Chronic edema.
- Differential diagnosis includes:
1. Venous stasis dermatitis
2. Lymphedema
3. Cellulitis
4. Erysipelas
5. Allergic reaction
6. Contact dermatitis
7. Laceration-related infection
8. Chronic venous insufficiency
9. Deep vein thrombosis
10. Eczema
-Risk:
Consideration of admission/observation: Escalation of care including admission/observation was considered given the complexity and risk of the patients presenting complaint and chronic edema. However, ultimately the patient is deemed safe for
outpatient management with close follow-up. The reasoning is that the wound was secured with Dermabond, the patient is stable, agreeable for discharge, and is reliable for follow-up care.
DIAGNOSIS
- Superficial leg laceration with chronic edema (ICD-10: S81.00XA).
*Pulse Oximetry
SaO2: 94
Oxygen Mode of Delivery: Room air
Patient hypoxic: no
*Critical Care Note
Total Time (30-74mins, 75-104mins- exclusive of procedures): Not Applicable
ED Attending Note
-
Portions of this chart may have been created with voice recognition software.� Occasional wrong word or��sound alike� substitutions may have occurred due to the inherent limitations of voice recognition software.
Discharge Plan
Departure
Patient Disposition: Home (Routine Discharge)
Date of Disposition: 01/24/25
Time of Disposition: 01:33
Patient with high blood pressure during this ER visit?: Yes
Discharge Problem:
Laceration of leg
Instructions: Laceration Repair With Glue (DC), BLOOD PRESSURE
Prescriptions:
No Action
mycophenolate mofetil 250 mg capsule
250 mg PO BID
aspirin 81 mg Tablet,Delayed Release (Dr/Ec)
81 mg PO DAILY
calcium carbonate 500 mg calcium (1,250 mg) Tablet
500 mg PO QPM
calcitriol 0.5 mcg capsule
0.5 mcg PO MOWEFR
gabapentin 300 mg Capsule
300 mg PO TID
losartan 100 mg tablet
100 mg PO DAILY
coenzyme Q10 [Co Q-10] 100 mg Capsule
100 mg PO QPM
glucosamine-chondroitin 250-200 mg Tablet
1 tab PO DAILY
mirabegron [Myrbetriq] 50 mg Tablet Extended Release 24 Hr
50 mg PO DAILY@1500
metoprolol tartrate 25 mg Tablet
25 mg PO BID Qty: 1 0RF
hydralazine 10 mg tablet
10 mg PO BID
prednisone 10 mg tablet
10 mg PO DAILY
polyethylene glycol 3350 17 gram Powder In Packet
17 g PO DAILY
pravastatin 40 mg tablet
40 mg PO DAILY
therapeutic multivitamin Tablet
1 tab PO DAILY
acetaminophen 650 mg Tablet Extended Release
650 mg PO DAILYPRN PRN (Reason: mild pain)
propranolol 40 mg tablet
80 mg PO DAILY
omeprazole 20 mg capsule,delayed release(DR/EC)
20 mg PO DAILY
furosemide 20 mg tablet
20 mg PO MOWEFR
turmeric root extract 500 mg Capsule
500 mg PO DAILY
cranberry 450 mg Tablet
450 mg PO DAILY
docusate sodium 100 mg capsule
100 mg PO DAILY
cephalexin 500 mg Capsule
500 mg PO BID 5 Days Qty: 10 0RF
tramadol 50 mg tablet
50 mg PO BIDPRN PRN (Reason: moderate pain) Qty: 14 0RF
morphine 15 mg tablet extended release
15 mg PO BID Qty: 6 0RF
Activity Restrictions/Additional Instructions:
Your wound was fixed with derma-quintana. This is a special glue that holds a wound closed similar to stitches. This type of wound closure will eventually fall off by itself and does not need to be removed. You may wash the area very gently, but do not
scrub or pick at the glue. Watch for signs of infection: fever over 100.5', increasing pain, red streaks around wound, swelling, drainage of pus, or bad smell. If any of these happen, return to ED promptly. All wounds may scar, however you may
reduce the appearance of scarring by avoiding sun exposure to the scar and applying skin moisturizer with spf protection to the scar once the wound is healed.
Interventions
Interventions:
*Risk Screen - Suicide Last Done: 01/23/25 22:36
*Neglect/Abuse Screening Last Done: 01/23/25 22:36
Discharge Date and Time
Print Language: POLISH
--- NOTE | 2025-01-24 02:30 | EDRN ---
Patients wound was dressed prior to her leaving to go home.
== END 2025-01-24 02:50 | disposition home or self-care (01) ==
LOC: EMR 22:29
PROVIDERS: EMERGENCY PHYSICIAN Student in an Organized Health Care Education/Training Program; FAMILY PHYSICIAN Nurse Practitioner Family
DX: S81.811A Laceration without foreign body, right lower leg, initial encounter (principal); W22.8XXA Striking against or struck by other objects, initial encounter; Y93.89 Activity, other specified; R60.9 Edema, unspecified; I10 Essential (primary) hypertension; E78.00 Pure hypercholesterolemia, unspecified; K21.9 Gastro-esophageal reflux disease without esophagitis; Z79.899 Other long term (current) drug therapy; Z87.440 Personal history of urinary (tract) infections
CPT/HCPCS: 99283; 12002

== ENCOUNTER 2025-02-05 20:52 | Emergency (ER) | payer OTHER, SELFPAY ==
[2025-02-05 20:56] VITALS: BP 131/88
[2025-02-06 00:26] VITALS: BP 153/93
[2025-02-06 01:00] VITALS: BMI 39.2
--- NOTE | 2025-02-06 01:31 | ED.GENMED ---
History of Present Illness
General
Chief Complaint: Skin Problem
Time Seen by Provider: 02/06/25 01:31
History of Present Illness
History of Present Illness:
FOCUSED PAST MEDICAL HISTORY
- Patient has a history of high blood pressure, GERD
REVIEW OF OLD RECORDS
- The patient was seen here diagnosed with subconjunctival hemorrhage of the right eye 2 weeks ago which provided no significant information.
Note:
CHIEF COMPLAINT(S)
Ongoing fluid drainage from leg wound.
HISTORY OF PRESENT ILLNESS
The patient is a 79-year-old female with a history of lymphedema taking furosemide, presenting with concerns of prolonged fluid drainage from a leg wound. Approximately two weeks ago, she sustained a laceration on her leg leading to significant
bleeding, prompting a call to emergency services. During the initial emergency department visit, Dr. Kumar determined that the wound was not deep enough for sutures and opted to use tissue adhesive instead. Initially, the wound seemed to heal well,
but symptoms resurged about a week ago with the site exhibiting clear fluid discharge and swelling due to the edema. The patient reported regular use of absorbent dressings and previously wearing compression stockings, which she ceased recently. She
denies any bleeding or odor from the wound.
SOCIAL DETERMINANTS OF HEALTH
The patient reports assistance from a daily home energy rater.
PHYSICAL EXAM
-General: Appears chronically weak and debilitated, elevated BMI
-HEENT: Moist oral mucosa
-Neurologic: Fair strength all extremities, no obvious coordination deficits
-Psychiatric: Appropriate mental status, normal insight and judgement
-Extremities: Marked lymphedema noted bilateral, bilateral dorsal foot edema
-Skin: There is a healing laceration to the anterior aspect of the distal right garcía with significant weeping of fluid
PLAN
Reinforced use of compression stockings to facilitate fluid return to the heart, despite the presence of the wound.
DIFFERENTIAL DIAGNOSIS
- Venous insufficiency with ulceration
- Lymphorrhea from chronic lymphedema
- Cellulitis, unlikely given no signs of erythema or infection
- Poor wound healing secondary to edema
- Contact dermatitis
- Venous stasis dermatitis
- CHF exacerbation contributing to peripheral edema
- Thrombophlebitis
- Infection, though absence of signs makes it unlikely
SUMMARY OF ENCOUNTER
The patient was seen in the emergency department due to fluid discharge from a leg wound initially treated with tissue adhesive. Upon reassessment, the integrity of the adhesive was compromised, likely exacerbated by untreated edema. The decision
was made to reapply skin adhesive to manage the drainage and encourage the patient to resume wearing compression stockings to address underlying edema.
MEDICATION RECONCILIATION
The patient is on furosemide for edema management.
MEDICAL DECISION MAKING
-Complexity of Data Reviewed: Chronic conditions affecting care include lymphedema. The Differential Diagnosis includes, in no particular order and is not limited to: Venous insufficiency with ulceration, Lymphorrhea from chronic lymphedema,
Cellulitis, Poor wound healing secondary to edema, Contact dermatitis, Venous stasis dermatitis, CHF exacerbation contributing to peripheral edema, Thrombophlebitis, Infection.
-Data:
Category 1
- Clinical assessment and consideration for reapplication of skin adhesive.
- Patient and aide input regarding dressing and usage of compression stockings.
Category 2
My independent interpretation of the wound indicated no signs of infection.
-Risk:
Prescription medication management. Recommendations to continue compression therapy to mitigate the risk of fluid accumulation and associated complications.
-
Past History
Past History
ED Past Medical History: GERD, HTN, Hypercholesterolemia and Other (UTI, )
ED Past Surgical History: Appendectomy, Gynecological (D&C), Tonsilectomy and Other (Cataracts, Hemorrhoids. )
Patient has exhibited threatening behavior?: No
Social History
Tobacco: Non-smoker
Alcohol: None
Drug: None
Personal:
Living: alone
Phy Exam
Physical Exam
Physical Exam:
See HPI
Course
Vital Signs
Initial and Last Documented VS:
Initial Vital Signs
Temp Pulse Resp BP Pulse Ox
37.0 C 84 16 131/88 96
02/05/25 20:56 02/05/25 20:56 02/05/25 20:56 02/05/25 20:56 02/05/25 20:56
Last Documented Vital Signs
Temp Pulse Resp BP Pulse Ox
37.0 C 77 18 153/93 93
02/05/25 20:56 02/06/25 01:00 02/06/25 01:00 02/06/25 00:26 02/06/25 01:32
Procedures
Laceration Closure
Right Leg:
Status of Wound: clean
Description of Wound Edges: ragged
Preparation: cleaned with saline
Additional information:
I placed new Dermabond, then nonadherent dressing then 4 x 4's, Kerlix, then Coban
*Pulse Oximetry
SaO2: 93
Oxygen Mode of Delivery: Room air
Patient hypoxic: no
*Critical Care Note
Total Time (30-74mins, 75-104mins- exclusive of procedures): Not Applicable
ED Attending Note
-
Portions of this chart may have been created with voice recognition software.� Occasional wrong word or��sound alike� substitutions may have occurred due to the inherent limitations of voice recognition software.
Discharge Plan
Departure
Patient Disposition: Home (Routine Discharge)
Date of Disposition: 02/06/25
Time of Disposition: 02:00
Patient with high blood pressure during this ER visit?: Yes
Discharge Problem:
Lymphedema
Instructions: Lymphedema
Prescriptions:
No Action
mycophenolate mofetil 250 mg capsule
250 mg PO BID
aspirin 81 mg Tablet,Delayed Release (Dr/Ec)
81 mg PO DAILY
calcium carbonate 500 mg calcium (1,250 mg) Tablet
500 mg PO QPM
calcitriol 0.5 mcg capsule
0.5 mcg PO MOWEFR
gabapentin 300 mg Capsule
300 mg PO TID
losartan 100 mg tablet
100 mg PO DAILY
coenzyme Q10 [Co Q-10] 100 mg Capsule
100 mg PO QPM
glucosamine-chondroitin 250-200 mg Tablet
1 tab PO DAILY
mirabegron [Myrbetriq] 50 mg Tablet Extended Release 24 Hr
50 mg PO DAILY@1500
metoprolol tartrate 25 mg Tablet
25 mg PO BID Qty: 1 0RF
hydralazine 10 mg tablet
10 mg PO BID
prednisone 10 mg tablet
10 mg PO DAILY
polyethylene glycol 3350 17 gram Powder In Packet
17 g PO DAILY
pravastatin 40 mg tablet
40 mg PO DAILY
therapeutic multivitamin Tablet
1 tab PO DAILY
acetaminophen 650 mg Tablet Extended Release
650 mg PO DAILYPRN PRN (Reason: mild pain)
propranolol 40 mg tablet
80 mg PO DAILY
omeprazole 20 mg capsule,delayed release(DR/EC)
20 mg PO DAILY
furosemide 20 mg tablet
20 mg PO MOWEFR
turmeric root extract 500 mg Capsule
500 mg PO DAILY
cranberry 450 mg Tablet
450 mg PO DAILY
docusate sodium 100 mg capsule
100 mg PO DAILY
cephalexin 500 mg Capsule
500 mg PO BID 5 Days Qty: 10 0RF
tramadol 50 mg tablet
50 mg PO BIDPRN PRN (Reason: moderate pain) Qty: 14 0RF
morphine 15 mg tablet extended release
15 mg PO BID Qty: 6 0RF
Referrals:
[facility], [Other]
Ratna Higgins CRNP [Family Provider, Family Practice]
Activity Restrictions/Additional Instructions:
I placed a new pressure dressing and replaced glue. I recommend that you try using the compression stockings. Follow-up your primary care doctor.
Interventions
Interventions:
*Risk Screen - Suicide Last Done: 02/05/25 20:56
*General Assessment Last Done: 02/06/25 01:00
*Neglect/Abuse Screening Last Done: 02/05/25 20:56
*ED- Fall Risk Assessment Last Done: 02/06/25 01:00
*ED COVID-19 Vaccine History Last Done: 02/06/25 01:00
ED-Skin Assessment Last Done: 02/06/25 01:02
Discharge Date and Time
Print Language: GERMAN
== END 2025-02-06 04:17 | disposition home or self-care (01) ==
LOC: EMR 20:52
PROVIDERS: EMERGENCY PHYSICIAN Emergency Medicine; FAMILY PHYSICIAN Nurse Practitioner Family
DX: I89.0 Lymphedema, not elsewhere classified (principal); S81.811A Laceration without foreign body, right lower leg, initial encounter; X58.XXXA Exposure to other specified factors, initial encounter; I10 Essential (primary) hypertension; E78.00 Pure hypercholesterolemia, unspecified; K21.9 Gastro-esophageal reflux disease without esophagitis
CPT/HCPCS: 99282; 12001

== ENCOUNTER 2025-03-16 13:17 | Emergency (ER) | payer OTHER, SELFPAY ==
[2025-03-16 13:27] VITALS: BP 125/72
[2025-03-16 13:50] LABS: Hematocrit 42.7 % (37.0-47.0); Hemoglobin 13.4 g/dL (12.0-16.0); Mean Corp Hgb Conc. 31.4 g/dL (33.0-37.0); Mean Corpuscular Volume 99.1 fL (81.0-99.0); Nucleated Red Blood Cells % 0 %; Platelet Count 185 10^3/uL (130-400); Red Cell Dist. Width 13.9 % (11.5-14.5)
[2025-03-16 14:05] LABS: ALT (SGPT) 15 U/L (0-35); AST (SGOT) 32 U/L (14-36); Albumin 4.0 g/dl (3.5-5.0); Alkaline Phosphatase 86 U/L (38-126); Blood Urea Nitrogen 15 mg/dl (7-17); Calcium 9.6 mg/dl (8.4-10.2); Carbon Dioxide 30 mmol/L (22-30); Chloride 102 mmol/L (98-107); Glucose 89 mg/dl (70-99); Potassium 4.3 mmol/L (3.5-5.1); Sodium 138 mmol/L (135-145); Total Protein 6.2 g/dl (6.3-8.2); eGFR > 60.00
[2025-03-16 14:58] VITALS: BMI 38.2
--- NOTE | 2025-03-16 17:00 | ED.GENMED ---
History of Present Illness
General
Chief Complaint: Skin Surface Trauma
Time Seen by Provider: 03/16/25 15:12
History of Present Illness
History of Present Illness:
79-year-old female with history of lymphedema presenting to the emergency department for laceration to the right garcía. Patient reports that she struck her leg on her wheelchair prior to arrival and suffered a laceration. Notes that her tetanus is
up-to-date. Since then has had persistent weeping to the area. Denies significant pain. Denies numbness or weakness. Denies fever. Denies additional acute medical complaints.
Past History
Past History
ED Past Medical History: GERD, HTN, Hypercholesterolemia and Other (UTI, )
ED Past Surgical History: Appendectomy, Gynecological (D&C), Tonsilectomy and Other (Cataracts, Hemorrhoids. )
Patient has exhibited threatening behavior?: No
Social History
Tobacco: Non-smoker
Alcohol: None
Drug: None
Personal:
Living: alone
Phy Exam
Physical Exam
Physical Exam:
General: Well-appearing, no clinical signs of dehydration, nontoxic and in no acute distress
HEENT: protecting airway
Neck: appears supple
CV: Normal heart rate
Resp: No accessory muscle use, no increased work of breathing
Abd: No distention
Extremities: Laceration to the right anterior garcía, weeping without any significant bleeding, subcutaneous with some ecchymosis
Neuro: alert, no focal neurologic deficit
: deferred
Rectal: deferred
Psych: Normal affect
Skin: Intact
Course
Orders/Labs/Results
Orders:
Orders
03/16/25 13:33
BNP [NT-proBNP] Urgent
Comprehensive Metabolic Panel Urgent
03/16/25 13:34
Complete Blood Count/With Diff Urgent
03/16/25 16:11
Case Management Consult ONCE
Case Management Consult: VN/Home Care
Abnormal Lab Results
03/16/25 03/16/25
13:33 13:34
MCV 99.1 H fL
(81.0-99.0)
MCH 31.1 H pg
(27.0-31.0)
MCHC 31.4 L g/dL
(33.0-37.0)
Absolute Monos (auto) 0.9 H 10^3/uL
(0.1-0.6)
Monocytes % 11.4 H %
(1.7-9.3)
Total Protein 6.2 L g/dl
(6.3-8.2)
03/16/25 13:34
03/16/25 13:33
Vital Signs
Initial and Last Documented VS:
Initial Vital Signs
Temp Pulse Resp BP Pulse Ox
98.0 F 62 20 125/72 98
03/16/25 13:27 03/16/25 13:27 03/16/25 13:27 03/16/25 13:27 03/16/25 13:27
Last Documented Vital Signs
Temp Pulse Resp BP Pulse Ox
98.0 F 62 20 125/72 98
03/16/25 13:27 03/16/25 13:27 03/16/25 13:27 03/16/25 13:27 03/16/25 17:02
Procedures
Laceration Closure
Right Anterior Distal Leg:
Status of Wound: clean
Size of Wound in cm: 8
Description of Wound Edges: flap-poorly vascularized
Preparation: cleaned with saline
Anesthesia: 1% Lidocaine
Type of Closure: single layer closure
Skin Closure Material: 3-0 prolene
Number of sutures: 8
MDM/Problems Addressed
MDM/Problems Addressed:
79-year-old female with history of lymphedema presenting for laceration to her right leg after she struck her leg on her wheelchair. Vital signs are normal.
On exam patient resting comfortably, no acute distress or discomfort. Large laceration to the right anterior garcía, poorly vascularized flap, subcutaneous. Continuous weeping from the skin from lymphedema. Tetanus is up-to-date. No present
neurovascular compromise or infectious findings. Laceration was repaired as best could be given friable tissue with the lymphedema. 8 sutures placed. Will preemptively put patient on antibiotics for concern of infection risk. Case management
consulted for visiting nurse for wound care. Stable for discharge. Return precautions discussed
*Pulse Oximetry
SaO2: 98
Oxygen Mode of Delivery: Room air
Patient hypoxic: no
*Critical Care Note
Total Time (30-74mins, 75-104mins- exclusive of procedures): Not Applicable
ED Attending Note
-
Portions of this chart may have been created with voice recognition software.� Occasional wrong word or��sound alike� substitutions may have occurred due to the inherent limitations of voice recognition software.
Discharge Plan
Departure
Patient Disposition: Home (Routine Discharge)
Date of Disposition: 03/16/25
Time of Disposition: 17:06
Patient with high blood pressure during this ER visit?: No
Condition: Good
Discharge Problem:
Laceration of right lower leg
Instructions: Laceration Repair With Stitches (DC)
Prescriptions:
New
cephalexin 500 mg capsule
500 mg PO BID 7 Days Qty: 14 0RF
No Action
mycophenolate mofetil 250 mg capsule
250 mg PO BID
aspirin 81 mg Tablet,Delayed Release (Dr/Ec)
81 mg PO DAILY
calcium carbonate 500 mg calcium (1,250 mg) Tablet
500 mg PO QPM
calcitriol 0.5 mcg capsule
0.5 mcg PO MOWEFR
gabapentin 300 mg Capsule
300 mg PO TID
losartan 100 mg tablet
100 mg PO DAILY
coenzyme Q10 [Co Q-10] 100 mg Capsule
100 mg PO QPM
glucosamine-chondroitin 250-200 mg Tablet
1 tab PO DAILY
mirabegron [Myrbetriq] 50 mg Tablet Extended Release 24 Hr
50 mg PO DAILY@1500
metoprolol tartrate 25 mg Tablet
25 mg PO BID Qty: 1 0RF
hydralazine 10 mg tablet
10 mg PO BID
prednisone 10 mg tablet
10 mg PO DAILY
polyethylene glycol 3350 17 gram Powder In Packet
17 g PO DAILY
pravastatin 40 mg tablet
40 mg PO DAILY
therapeutic multivitamin Tablet
1 tab PO DAILY
acetaminophen 650 mg Tablet Extended Release
650 mg PO DAILYPRN PRN (Reason: mild pain)
propranolol 40 mg tablet
80 mg PO DAILY
omeprazole 20 mg capsule,delayed release(DR/EC)
20 mg PO DAILY
furosemide 20 mg tablet
20 mg PO MOWEFR
turmeric root extract 500 mg Capsule
500 mg PO DAILY
cranberry 450 mg Tablet
450 mg PO DAILY
docusate sodium 100 mg capsule
100 mg PO DAILY
cephalexin 500 mg Capsule
500 mg PO BID 5 Days Qty: 10 0RF
tramadol 50 mg tablet
50 mg PO BIDPRN PRN (Reason: moderate pain) Qty: 14 0RF
morphine 15 mg tablet extended release
15 mg PO BID Qty: 6 0RF
Referrals:
Ratna Higgins CRNP [Family Provider, Family Practice]
Activity Restrictions/Additional Instructions:
You were seen in the emergency department for laceration to your leg
You were found to a large laceration to your right leg which was repaired with sutures. Case management to arrange a visiting nurse to help with wound care. You were started on antibiotics for infection prevention. Please continue daily dressing
changes of the wound.
Please follow-up closely with your primary care physician.
Return to the emergency department for any worsening of your symptoms, or any development of chest pain, difficulty breathing, abdominal pain with persistent vomiting and inability to tolerate food or liquid by mouth (concern for dehydration),
weakness, headache or confusion, fever greater than 100.4, or any additional symptoms that are concerning to you.
Thank you for choosing [facility].
Interventions
Interventions:
*Risk Screen - Suicide Last Done: 03/16/25 14:59
*General Assessment Last Done: 03/16/25 13:27
*Neglect/Abuse Screening Last Done: 03/16/25 14:59
*ED COVID-19 Vaccine History Last Done: 03/16/25 14:59
*ED Influenza Vaccine History Last Done: 03/16/25 14:59
ED-Skin Assessment Last Done: 03/16/25 15:44
Discharge Date and Time
Print Language: ZIMBABWEAN
--- NOTE | 2025-03-16 17:18 | CM ---
Patient with consult for home health nursing. Following discussion with patient she requested referral to [facility]. CM sent to [facility] for follow up with PT/OT and nursing. Patient for discharge back to [facility] per nursing.
[2025-03-16 18:38] VITALS: BP 122/70
== END 2025-03-16 18:52 | disposition home or self-care (01) ==
LOC: EMR 13:17
PROVIDERS: Emergency Medicine; EMERGENCY PHYSICIAN Student in an Organized Health Care Education/Training Program; FAMILY PHYSICIAN Nurse Practitioner Family
DX: S81.811A Laceration without foreign body, right lower leg, initial encounter (principal); W22.8XXA Striking against or struck by other objects, initial encounter; I10 Essential (primary) hypertension; E78.00 Pure hypercholesterolemia, unspecified; I89.0 Lymphedema, not elsewhere classified
CPT/HCPCS: 12004; 99283; 80053; 83880; 85025

== ENCOUNTER 2025-04-01 17:52 | Inpatient (IN) | payer OTHER, SELFPAY ==
[2025-04-01] VITALS (13 sets, daily range): BP systolic 67–118; BP diastolic 46–68; BMI 41.5; BMI 35.5; BMI 35.4
[2025-04-01 12:17] LABS: Hematocrit 42.5 % (37.0-47.0); Hemoglobin 13.0 g/dL (12.0-16.0); Mean Corp Hgb Conc. 30.6 g/dL (33.0-37.0); Mean Corpuscular Volume 97.7 fL (81.0-99.0); Nucleated Red Blood Cells % 0 %; Platelet Count 194 10^3/uL (130-400); Red Cell Dist. Width 14.0 % (11.5-14.5)
[2025-04-01 12:31] LABS: ALT (SGPT) 18 U/L (0-35); AST (SGOT) 33 U/L (14-36); Albumin 3.9 g/dl (3.5-5.0); Alkaline Phosphatase 98 U/L (38-126); Blood Urea Nitrogen 34 mg/dl (7-17); Calcium 9.4 mg/dl (8.4-10.2); Carbon Dioxide 37 mmol/L (22-30); Chloride 93 mmol/L (98-107); Estimated Creatinine Clearance 39 ml/min; Glucose 93 mg/dl (70-99); Potassium 4.8 mmol/L (3.5-5.1); Sodium 137 mmol/L (135-145); Total Protein 6.0 g/dl (6.3-8.2); eGFR 41.83
[2025-04-01 13:07] LABS: Urine Character Clear (Clear)
--- NOTE | 2025-04-01 13:34 | ED.GENMED ---
History of Present Illness
<Gail Padilla PA-C - Last Filed: 04/01/25 22:54>
General
Chief Complaint: Fall
Source: patient
Exam Limitations: none
Time Seen by Provider: 04/01/25 12:44
Nursing documentation reviewed up to this point in time: agreed with
History of Present Illness
History of Present Illness:
Patient is a 79-year-old female with history hypertension, hyperlipidemia, lymphedema who presents to the emergency department via EMS after multiple falls. Patient states that last night she got out of bed around 3/4 AM, went to use the bathroom
and tripped using her rollator falling on her bottom. She called 911 who came and assisted her back in the bed however she did not have any evidence of injuries and was not brought to the emergency department at that time. However, she sustained
another similar fall this morning around 10 AM. 911 was called again as she was unable to get up and and this time brought her to the emergency department.
Patient denies any head strike or loss of consciousness. She denies any chest pain, shortness of breath, or lightheadedness preceding fall. She denies any headache, neck pain. No recent fever or viral symptoms.
Patient reports mild pain in her left hip.
She has chronic lymphedema in her bilateral lower extremities. No oral anticoagulation.
Patient was recently placed on an increased dose of diuretic, torsemide for edema.
Past History
<Gail Padilla PA-C - Last Filed: 04/01/25 22:54>
Past History
ED Past Medical History: GERD, HTN, Hypercholesterolemia and Other (UTI, )
ED Past Surgical History: Appendectomy, Gynecological (D&C), Tonsilectomy and Other (Cataracts, Hemorrhoids. )
Patient has exhibited threatening behavior?: No
Social History
Tobacco: Non-smoker
Alcohol: None
Drug: None
Personal:
Living: alone
Review of Systems
<Gail Padilla PA-C - Last Filed: 04/01/25 22:54>
Review of Systems
Allergies reviewed?: Yes
All Other Systems: ROS reviewed and negative except as documented in HPI and ROS
Phy Exam
<Gail Padilla PA-C - Last Filed: 04/01/25 22:54>
Physical Exam
Physical Exam:
Vitals: Patient's vital signs are stable. Afebrile
General: Patient is in no distress.
Skin: Warm and dry, no rashes or lesions
Head: Normocephalic, atraumatic
Eyes: Sclera nonicteric. EOMs intact. No nystagmus.
Throat: Protecting airway
Neck: Normal ROM, no cervical spine tenderness, no meningismus
Cardiac: Regular rate and rhythm, no murmurs.
Pulm: Hypoxic to 88% on room air. Lungs clear bilaterally.
Abdomen: No abdominal tenderness.
Back: No midline spinal tenderness.
Extremities: Bilateral lower extremity edema. Mild tenderness of left hip without any obvious deformity. Good range of motion in bilateral upper and lower extremities. Distal pulses intact
Neuro: AAOx3. Grossly intact.
Psychiatric: Normal affect.
Course
<Gail Padilla PA-C - Last Filed: 04/01/25 22:54>
Orders/Labs/Results
Orders:
Orders
04/01/25 Breakfast
Cholesterol Lowering
Cholesterol Lowering: Sodium, 2 Gram
04/01/25 11:56
Complete Blood Count/With Diff Urgent
Comprehensive Metabolic Panel Urgent
Urinalysis Reflex To Culture Urgent
Date Specimen was Collected: 04/01/25
Time Specimen was Collected: 11:45
Urine Microscopic Reflex Cult Urgent
04/01/25 13:01
Cervical Spine wo Contrast CT [CT Cervical Spine W/o Iv Contr] Urgent
Comment:
Reason For Exam: unwitnessed fall
Hip, Left 2-3 Views [CR Hip - LT w/wo Pel 2-3 Vw*] Urgent
Comment:
Reason For Exam: fall, hip pain
Include a pelvis x-ray?: Yes
04/01/25 13:02
CT Head W/o Iv Contrast Urgent
Comment:
Reason For Exam: unwitnessed fall
04/01/25 13:03
CR Chest - 2 Views Urgent
Comment:
Reason For Exam: hypoxia
04/01/25 13:13
NT-proBNP Urgent
Troponin I Urgent
04/01/25 14:18
Electrocardiogram (*1) Urgent
Reason for Study: Shortness of Breath
04/01/25 14:20
CT Chest PE Study Urgent
Comment:
Reason For Exam: Hypoxia, trop elevation
Acetaminophen [Tylenol] 650 mg PO NOW STA
04/01/25 16:15
Electrocardiogram (*1) Urgent
Reason for Study: Shortness of Breath
04/01/25 16:28
0.9% Sodium Chloride 250 ml [Nss] 250 ml IV BOLUS
04/01/25 16:45
Troponin I Urgent
04/01/25 17:28
Admit/Transfer Patient As Directed
Co-Sign Provider:
Level of Care: Inpatient admission
Assign to:: IMU- Intermediate Care
Physician / Group: emelyn
Diagnosis: mechanical fall
Reason for Hospitalization: mechanical fall
Expected length of stay greater than two midnights?: Yes
ELOS- Estimated Length of Stay in days: 3
I certify the patient meets the requirements for IP care: Yes
04/01/25 17:29
PRN Pain Medication Management As Directed
May give lesser potent ordered pain med per pt: Yes
preference::
Protocol:: Medication orders for pain may be administered in a
manner that supports deferring to patient preference
when the pt is:
-Requesting an ordered lesser potent pain medication.
Least to most potent pain medications are defined as:
acetaminophen < NSAID < tramadol < opioids (morphine,
oxycodone, hydromorphone).
- Requesting a lesser dose of the same medication IF
ORDERED.
- Requesting a less intrusive route of administration
if both routes are prescribed by the provider (PO <
IV).
04/01/25 17:31
Code Status As Directed
Resuscitation Status: Full Code
04/01/25 17:44
COVID-19 Antigen Stat
Source: Nasal Swab
Influenza A+B Rapid Molecular Stat
ABBE Source: Nasal Swab
Specimen Description:
04/01/25 20:24
Acetaminophen [Tylenol] 650 mg PO Q4HPRN PRN
Bisacodyl [Dulcolax] 10 mg RECTAL [id number] PRN
Docusate W/Senna [Senokot-S] 1 tablet PO BIDPRN PRN
Heparin 5,000 units SC Q12
Morphine Sulfate Extended Rel. [Ms Contin (Extended Release)] 15 mg PO BID
Mycophenolate [Cellcept] 250 mg PO BID
Polyethylene Glycol Powder [Miralax] 17 grams PO DAILYPRN PRN
Tramadol HCl [Ultram] 50 mg PO BIDPRN PRN moderate pain
04/01/25 20:24
CARDIOLOGY CONSULT Routine
Consulting Provider: Benjamin Smith
Was physician already notified: Yes
HF DIETARY CONSULT Routine
HF EDUCATOR CONSULT Routine
Comment:
Activity As Directed
Activity Level: As Tolerated
Intake/ Output As Directed
Frequency: Per unit guidelines
Patient Education As Directed
Type: CHF folder
Comment: give on admission. Document in Interdisciplinary Education record
Sleep Apnea Assessment by RN As Directed
Comment:
Physician Instructions:
Vital Signs As Directed
Frequency: Other
Additional Instructions:: Q12 or per unit guidelines if more frequent.
Vital Signs As Directed
Frequency: Per unit guidelines
Weight As Directed
Frequency: Daily
O2 Therapy [RESP] Routine
Titrate/Wean O2 to maintain O2 sat greater than (%): 95
Pulse Ox/cont/shift [RESP] Routine
Quantity: 1
Special Instructions: Daily pulse oximetry at rest. If greater than 92% at rest also obtain pulse oximetry
while ambulating as tolerated.
Ot Eval And Treat Routine
Pt Eval And Treat Routine
Activity Level: As Tolerated
DX Deep Vein Thrombosis Video Routine
04/01/25 20:35
Calcitriol [Rocaltrol] 0.5 mcg PO MoWeFr@0800
04/01/25 20:45
Mirabegron Extended Release [Myrbetriq Extended Release] 50 mg PO QPM
04/01/25 21:58
Troponin I Q4H
04/01/25 22:00
Gabapentin [Neurontin] 300 mg PO TID
04/02/25 00:24
Troponin I Q4H
04/02/25 06:00
Basic Metabolic Panel IN AM
Cardiovascular Evaluation IN AM
Complete Blood Count/No Diff IN AM
Magnesium IN AM
TSH Reflex To Free T4 IN AM
04/02/25 08:00
Aspirin Low Dose EC [Aspir Low (Enteric Coated)] 81 mg PO DAILY
Pantoprazole [Protonix] 40 mg PO DAILY
Pravastatin Sodium [Pravachol] 40 mg PO DAILY
Prednisone [Deltasone] 10 mg PO DAILY
04/03/25 06:00
Basic Metabolic Panel IN AM
Complete Blood Count/No Diff IN AM
04/03/25 11:00
DC Protocol for Telemetry ONCE
04/04/25 06:00
Basic Metabolic Panel IN AM
Complete Blood Count/No Diff IN AM
Abnormal Lab Results
04/01/25 04/01/25 04/01/25
11:56 13:13 16:45
MCHC 30.6 L g/dL
(33.0-37.0)
MPV 10.9 H fL
(7.4-10.4)
Absolute Monos (auto) 0.8 H 10^3/uL
(0.1-0.6)
Lymphocytes % 18.7 L %
(20.5-51.1)
Chloride 93 L mmol/L
(98-107)
Carbon Dioxide 37 H mmol/L
(22-30)
BUN 34 H mg/dl
(7-17)
Creatinine 1.3 H mg/dL
(0.6-1.0)
Troponin I 0.095 H* ng/ml 0.085 H* ng/ml
Total Protein 6.0 L g/dl
(6.3-8.2)
Urine Albumin (Reflex) 2+ A
(Neg - Trace)
04/01/25 11:56
04/01/25 11:56
Vital Signs
Initial and Last Documented VS:
Initial Vital Signs
Temp Pulse Resp BP Pulse Ox
98.2 F 80 18 118/68 92
04/01/25 11:23 04/01/25 11:23 04/01/25 11:23 04/01/25 11:23 04/01/25 11:23
Last Documented Vital Signs
Temp Pulse Resp BP Pulse Ox
98.1 F 81 14 98/55 97
04/01/25 22:35 04/01/25 22:11 04/01/25 22:11 04/01/25 20:55 04/01/25 22:11
<Williams Thakur MD - Last Filed: 04/01/25 14:26>
Orders/Labs/Results
Orders:
Orders
04/01/25 Breakfast
Cholesterol Lowering
Cholesterol Lowering: Sodium, 2 Gram
04/01/25 11:56
Complete Blood Count/With Diff Urgent
Comprehensive Metabolic Panel Urgent
Urinalysis Reflex To Culture Urgent
Date Specimen was Collected: 04/01/25
Time Specimen was Collected: 11:45
Urine Microscopic Reflex Cult Urgent
04/01/25 13:01
Cervical Spine wo Contrast CT [CT Cervical Spine W/o Iv Contr] Urgent
Comment:
Reason For Exam: unwitnessed fall
Hip, Left 2-3 Views [CR Hip - LT w/wo Pel 2-3 Vw*] Urgent
Comment:
Reason For Exam: fall, hip pain
Include a pelvis x-ray?: Yes
04/01/25 13:02
CT Head W/o Iv Contrast Urgent
Comment:
Reason For Exam: unwitnessed fall
04/01/25 13:03
CR Chest - 2 Views Urgent
Comment:
Reason For Exam: hypoxia
04/01/25 13:13
NT-proBNP Urgent
Troponin I Urgent
04/01/25 14:18
Electrocardiogram (*1) Urgent
Reason for Study: Shortness of Breath
04/01/25 14:20
CT Chest PE Study Urgent
Comment:
Reason For Exam: Hypoxia, trop elevation
Acetaminophen [Tylenol] 650 mg PO NOW STA
04/01/25 16:15
Electrocardiogram (*1) Urgent
Reason for Study: Shortness of Breath
04/01/25 16:28
0.9% Sodium Chloride 250 ml [Nss] 250 ml IV BOLUS
04/01/25 16:45
Troponin I Urgent
04/01/25 17:28
Admit/Transfer Patient As Directed
Co-Sign Provider:
Level of Care: Inpatient admission
Assign to:: IMU- Intermediate Care
Physician / Group: emelyn
Diagnosis: mechanical fall
Reason for Hospitalization: mechanical fall
Expected length of stay greater than two midnights?: Yes
ELOS- Estimated Length of Stay in days: 3
I certify the patient meets the requirements for IP care: Yes
04/01/25 17:29
PRN Pain Medication Management As Directed
May give lesser potent ordered pain med per pt: Yes
preference::
Protocol:: Medication orders for pain may be administered in a
manner that supports deferring to patient preference
when the pt is:
-Requesting an ordered lesser potent pain medication.
Least to most potent pain medications are defined as:
acetaminophen < NSAID < tramadol < opioids (morphine,
oxycodone, hydromorphone).
- Requesting a lesser dose of the same medication IF
ORDERED.
- Requesting a less intrusive route of administration
if both routes are prescribed by the provider (PO <
IV).
04/01/25 17:31
Code Status As Directed
Resuscitation Status: Full Code
04/01/25 17:44
COVID-19 Antigen Stat
Source: Nasal Swab
Influenza A+B Rapid Molecular Stat
ABBE Source: Nasal Swab
Specimen Description:
04/01/25 20:24
Acetaminophen [Tylenol] 650 mg PO Q4HPRN PRN
Bisacodyl [Dulcolax] 10 mg RECTAL [id number] PRN
Docusate W/Senna [Senokot-S] 1 tablet PO BIDPRN PRN
Heparin 5,000 units SC Q12
Morphine Sulfate Extended Rel. [Ms Contin (Extended Release)] 15 mg PO BID
Mycophenolate [Cellcept] 250 mg PO BID
Polyethylene Glycol Powder [Miralax] 17 grams PO DAILYPRN PRN
Tramadol HCl [Ultram] 50 mg PO BIDPRN PRN moderate pain
04/01/25 20:24
CARDIOLOGY CONSULT Routine
Consulting Provider: Benjamin Smith
Was physician already notified: Yes
HF DIETARY CONSULT Routine
HF EDUCATOR CONSULT Routine
Comment:
Activity As Directed
Activity Level: As Tolerated
Intake/ Output As Directed
Frequency: Per unit guidelines
Patient Education As Directed
Type: CHF folder
Comment: give on admission. Document in Interdisciplinary Education record
Sleep Apnea Assessment by RN As Directed
Comment:
Physician Instructions:
Vital Signs As Directed
Frequency: Other
Additional Instructions:: Q12 or per unit guidelines if more frequent.
Vital Signs As Directed
Frequency: Per unit guidelines
Weight As Directed
Frequency: Daily
O2 Therapy [RESP] Routine
Titrate/Wean O2 to maintain O2 sat greater than (%): 95
Pulse Ox/cont/shift [RESP] Routine
Quantity: 1
Special Instructions: Daily pulse oximetry at rest. If greater than 92% at rest also obtain pulse oximetry
while ambulating as tolerated.
Ot Eval And Treat Routine
Pt Eval And Treat Routine
Activity Level: As Tolerated
DX Deep Vein Thrombosis Video Routine
04/01/25 20:35
Calcitriol [Rocaltrol] 0.5 mcg PO MoWeFr@0800
04/01/25 20:45
Mirabegron Extended Release [Myrbetriq Extended Release] 50 mg PO QPM
04/01/25 21:58
Troponin I Q4H
04/01/25 22:00
Gabapentin [Neurontin] 300 mg PO TID
04/02/25 00:24
Troponin I Q4H
04/02/25 06:00
Basic Metabolic Panel IN AM
Cardiovascular Evaluation IN AM
Complete Blood Count/No Diff IN AM
Magnesium IN AM
TSH Reflex To Free T4 IN AM
04/02/25 08:00
Aspirin Low Dose EC [Aspir Low (Enteric Coated)] 81 mg PO DAILY
Pantoprazole [Protonix] 40 mg PO DAILY
Pravastatin Sodium [Pravachol] 40 mg PO DAILY
Prednisone [Deltasone] 10 mg PO DAILY
04/03/25 06:00
Basic Metabolic Panel IN AM
Complete Blood Count/No Diff IN AM
04/03/25 11:00
DC Protocol for Telemetry ONCE
04/04/25 06:00
Basic Metabolic Panel IN AM
Complete Blood Count/No Diff IN AM
Abnormal Lab Results
04/01/25 04/01/25 04/01/25
11:56 13:13 16:45
MCHC 30.6 L g/dL
(33.0-37.0)
MPV 10.9 H fL
(7.4-10.4)
Absolute Monos (auto) 0.8 H 10^3/uL
(0.1-0.6)
Lymphocytes % 18.7 L %
(20.5-51.1)
Chloride 93 L mmol/L
(98-107)
Carbon Dioxide 37 H mmol/L
(22-30)
BUN 34 H mg/dl
(7-17)
Creatinine 1.3 H mg/dL
(0.6-1.0)
Troponin I 0.095 H* ng/ml 0.085 H* ng/ml
Total Protein 6.0 L g/dl
(6.3-8.2)
Urine Albumin (Reflex) 2+ A
(Neg - Trace)
04/01/25 11:56
04/01/25 11:56
Vital Signs
Initial and Last Documented VS:
Initial Vital Signs
Temp Pulse Resp BP Pulse Ox
98.2 F 80 18 118/68 92
04/01/25 11:23 04/01/25 11:23 04/01/25 11:23 04/01/25 11:23 04/01/25 11:23
Last Documented Vital Signs
Temp Pulse Resp BP Pulse Ox
98.1 F 81 14 98/55 97
04/01/25 22:35 04/01/25 22:11 04/01/25 22:11 04/01/25 20:55 04/01/25 22:11
<Gail Padilla PA-C - Last Filed: 04/01/25 22:54>
MDM/Problems Addressed
Differential Diagnosis Includes:
Not limited to: Acute dehydration, viral illness, ambulatory dysfunction, lymphedema, congestive heart failure, pneumonia, UTI, etc.
MDM/Problems Addressed:
79-year-old female presents via EMS after multiple falls overnight. No report of head strike or loss of consciousness. Patient arrives without current complaints and in no distress however, was found to be incidentally hypoxic to 88% on room air and
placed on 2 L nasal cannula. Otherwise, she has stable vital signs.
On exam, patient has swelling of bilateral lower extremities secondary to chronic lymphedema. No evidence of head or neck trauma. No evidence of traumatic injuries of extremities.
Basic labs were sent prior to my evaluation. No evidence of urinary tract infection.
Given hypoxia - troponin, BNP, and EKG were ordered. Will obtain CT imaging head/cervical spine with hx of multiple unwitnessed falls.
Update: Troponin elevated to 0.095. She remains without any chest pain and in no distress. EKG shows some nonspecific t-wave flattening in V4, V5, and V6 without any other acute ischemic findings.
Chest x-ray without acute findings. BNP elevated to 5000.
Possible CHF however patient has no history of this. With elevated troponin and no clear etiology of hypoxia on chest x-ray � patient was sent for a PE study which should no acute findings.
Ultimately, no evidence of traumatic injuries from multiple falls. I suspect elevated troponin likely secondary to demand ischemia from hypoxia, possibly underlying CHF. Patient will require admission to hospitalist for further evaluation and
management.
Chronic conditions affecting care:
Bilateral lower extremity lymphedema
<Gail Padilla PA-C - Last Filed: 04/01/25 22:54>
*Radiology
Radiology exam reviewed: preliminary read by ED provider and radiology read reviewed
*Pulse Oximetry
SaO2: 98
Nasal Cannula flow liters per minute: 2
Oxygen Mode of Delivery: Room air
Patient hypoxic: yes
*EKG
Interpreted by ED Provider?: Yes
EKG Intrepretation Date: 04/01/25
Interpretation: abnormal
Comparison EKG: changes noted
Heart Rate: 77
Rate: normal
Rhythm: sinus
[place]: normal axis
Interval: normal QT interval
QRS Pattern: normal QRS
Ischemia: non-specific ST changes (T wave flattening in lateral leads)
*Proof Plate Maker Interpretation
Rate: normal
Interpretation: normal
Heart Rate: 80
Rhythm: sinus
*Critical Care Note
Total Time (30-74mins, 75-104mins- exclusive of procedures): Not Applicable
<Gail Padilla PA-C - Last Filed: 04/01/25 22:54>
Patient Management
Discussion with other providers: Hospitalist
ED Attending Note
<Gail Padilla PA-C - Last Filed: 04/01/25 22:54>
-
Portions of this chart may have been created with voice recognition software.� Occasional wrong word or��sound alike� substitutions may have occurred due to the inherent limitations of voice recognition software.
<Williams Thakur MD - Last Filed: 04/01/25 14:26>
ED Attending Note
Patient seen and examined by attending physician: Yes
I performed the substantive portion of visit, reviewed & personally made and approve the management plan that is documented in note by myself or JANEE.: Yes
ED Attending Note:
I have seen and evaluated the patient with a [id number] encounter. I have spoken to the [JANEE] and involved in the medical history, the physical exam, medical decision making.
Evaluation and management service: agree unless noted differently below.
Results interpretation: agree unless noted differently below.
79-year-old woman presenting to the emergency department with a fall. Patient states that she fell this morning secondary to weakness. She then fell again later this morning. She did not hit her head or lose consciousness. She is not on any
blood thinners. She does describe his overall weakness. At this time besides being weak patient has no other complaints. She denies any chest pain shortness of breath nausea vomiting abdominal pain numbness tingling weakness.
GENERAL: in no acute distress
HEENT: normocephalic, extraocular movements intact, moist oral mucosa
NECK: normal inspection
RESPIRATORY: no respiratory distress, clear to auscultation bilaterally
CARDIOVASCULAR: regular rate and rhythm
ABDOMEN/: soft, non-distended, non-tender to palpation, no rebound or guarding
EXTREMITIES: non-tender, bilateral lower extremity swelling
NEUROLOGIC: awake and alert, moves all extremities
SKIN: warm
79-year-old woman presenting to the emergency department for recurrent falls. On arrival patient is slightly hypoxic needing nasal cannula. Exam does show bilateral lower extremity edema lungs are clear. No obvious traumatic injuries on exam.
Concern for electrolyte derangement versus infection versus traumatic intracranial injury given recurrent falls and age. Will proceed with CT scan of head and neck. Will check blood work and urinalysis. Given hypoxia will check troponin and BNP
as well as chest x-ray.
Troponin and BNP are significantly elevated. Given that patient is hypoxic with these elevations will add on CT PE. Patient denies any chest pain. Will obtain EKG
Discharge Plan
Departure
Patient Disposition: Admit
Date of Disposition: 04/01/25
Time of Disposition: 16:52
Presentation/result/management discussed w/ accepting MD/DO: Hospitalist
Discharge Problem:
MARYANA (acute kidney injury), Hypoxia, Frequent falls
Interventions
Interventions:
*Risk Screen - Suicide Last Done: 04/01/25 11:23
*General Assessment Last Done: 04/01/25 11:23
*Neglect/Abuse Screening Last Done: 04/01/25 11:23
*ED- Fall Risk Assessment Last Done: 04/01/25 13:56
*ED COVID-19 Vaccine History Last Done: 04/01/25 13:56
*ED Influenza Vaccine History Last Done: 04/01/25 13:56
*Nursing Disposition Last Done: 04/01/25 20:18
ED-Musculoskeletal Assessment Last Done: 04/01/25 12:06
ED- Neurological Assessment Last Done: 04/01/25 12:06
ED-Skin Assessment Last Done: 04/01/25 12:06
Discharge Date and Time
Discharge Date/Time: 04/01/25 20:18
[2025-04-01 13:55] LABS: Urine Squamous Cell 0-2 /LPF (Few)
[2025-04-01 13:56] LABS: Urine Red Blood Cell 0-2 /HPF (0-2)
[2025-04-01 14:17] LABS: Troponin I 0.095 ng/ml
[2025-04-01] MEDS: TYLENOL 650 MG PO (14:38)
[2025-04-01] MEDS: NSS 250 IV (16:44)
--- NOTE | 2025-04-01 17:02 | HPS.HSE ---
Addendum entered and electronically signed by Marii Frye MD 04/01/25 19:17:
This is an addendum to H&P written by Simran Cueva on 04/01/2025. �Patient seen and examined independently with COATING ENGINEER.
79-year-old female past medical history of nephrotic syndrome/minimal-change disease, mild aortic stenosis, mild aortic regurgitation, hypertension, hyperlipidemia, osteoarthritis, spinal stenosis, chronic lymphedema, presenting for multiple falls.
�No head injury. �Mild pain in the left hip.
Patient recently had Lasix changed to torsemide due to chronic lymphedema.
Vital signs show blood pressure as low as 95/49. �Hypoxemia to 87% requiring 2 L oxygen.
Labs show creatinine of 1.3. �Troponin 0.095. �Cardiac BNP of 5000. �Chest x-ray shows thin linear density within the lateral aspect of the left lower lung slightly smaller than previous examination probably small scar with improvement in previously
seen atelectasis. �CT chest shows mild bibasilar atelectasis, mild superior endplate compression deformities of T4 and T5 vertebral bodies age-indeterminate may be chronic.
Patient with ambulatory dysfunction with falls with CT scan showing chronic compression fractures without corresponding back pain. �Patient with hypoxemia seemingly from CHF exacerbation due to cardiac BNP of 5000 however with hypotension and story
suggestive of volume depletion. �MARYANA likely prerenal from recent addition of torsemide for lymphedema versus cardiorenal. �Nonischemic myocardial injury secondary to discussed issues as no chest pain.
IV fluids given in ER.
Trend troponins. �Hold off further fluids due to concern for CHF. �Try to diurese when possible. �Cardiology consulted.
Original Note:
Family Physician
-
Family Physician: LISSETH Shay
Chief Complaint
-
fall
History of Present Illness
79-year-old female with history hypertension, hyperlipidemia, lymphedema who presents to the emergency department via EMS after multiple falls. Patient states that last night she got out of bed around 3/4 AM, went to use the bathroom and tripped
using her rollator falling on her bottom. She called 911 who came and assisted her back in the bed however she did not have any evidence of injuries and was not brought to the emergency department at that time. However, she sustained another
similar fall this morning around 10 AM. 911 was called again as she was unable to get up and and this time brought her to the emergency department.patint denied hitting head on the floor. denied dizzy, lightheaded or syncope. denied fever, chills,
cough, congestion, chest pain, sob. denied abdominal pain,n,v,d. denied dysuria or heamturia.
She has chronic lymphedema in her bilateral lower extremities. No oral anticoagulation.
Patient was recently placed on diuretics of lymphedema
Patient was seen at [facility], no result in ER. Admitting for further management
Medical History
Past Medical History
Past Medical History: Reports Other
Additional Past Medical History:
CKD, scoliosis, alpha-1 antitrypsin deficiency, paralytic syndrome, vitamin D deficiency, amyloidosis, overactive bladder, spinal stenosis, GERD, PVD, osteoarthritis, right foot drop, hyperal cholesteremia, osteoporosis, hypertension
Past Surgical History: Reports Other
Additional Past Surgical History:
Appendectomy, tonsillectomy, tubal ligation
Social History
Tobacco: Non-smoker
Alcohol: None
Drug: None
Personal: Single
Living: Alone
Family History
Family History: Not pertinent
Allergies / Home Medications
Allergies reflects when Allergies were last updated in [employer].
Home Medications with original date entered in [employer]
Allergy/Medication List:
Allergies
Allergy/AdvReac Type Severity Reaction Status Date / Time
No Known Allergies Allergy Verified 03/16/25 13:27
Home Medications
aspirin 81 mg tablet,delayed release 81 mg PO DAILY Blood Clot Prevention/Tx 11/25/22
calcitriol 0.5 mcg capsule 0.5 mcg PO MOWEFR Supplement 11/25/22
gabapentin 300 mg capsule 300 mg PO TID Neurological Condition 11/25/22
glucosamine-chondroitin 250 mg-200 mg tablet 1 tab PO DAILY Supplement 11/25/22
losartan 100 mg tablet 100 mg PO DAILY Blood Pressure 11/25/22
mirabegron 50 mg tablet,extended release 24 hr (Myrbetriq) 50 mg PO QPM Urinary Issue 11/25/22
mycophenolate mofetil 250 mg capsule 250 mg PO BID 11/25/22
hydralazine 10 mg tablet 10 mg PO BID Heart Disease/Condition 10/03/24
omeprazole 20 mg capsule,delayed release 20 mg PO DAILY gerd 10/03/24
pravastatin 40 mg tablet 40 mg PO DAILY High Cholesterol 10/03/24
prednisone 10 mg tablet 10 mg PO DAILY 10/03/24
propranolol 40 mg tablet 80 mg PO DAILY Heart Disease/Condition 10/03/24
therapeutic multivitamin 1 tab PO DAILY Supplement 10/03/24
turmeric root extract 500 mg capsule 500 mg PO DAILY Supplement 10/03/24
tramadol 50 mg tablet 50 mg PO BIDPRN PRN moderate pain #14 tabs 10/12/24
cranberry extract 200 mg capsule (Ellura) 200 mg PO DAILY Supplement 04/01/25
metoprolol tartrate 25 mg tablet 25 mg PO BID Heart Disease/Condition 04/01/25
morphine 15 mg tablet,extended release 15 mg PO BID severe pain 04/01/25
omega-3s 330 mg-dha and epa 300 mg-algal oil 600 mg capsule 1 cap PO DAILY Supplement 04/01/25
torsemide 20 mg tablet 20 mg PO BID Fluid Retention/Swelling 04/01/25
Review of Systems
-
Constitutional: Reports Chills
EENT: Reports No Symptoms
Respiratory: Reports No Symptoms
Cardiac: Reports No Symptoms
Abdomen/GI: Reports No Symptoms
: Reports No Symptoms
Musculoskeletal: Reports No Symptoms
Skin: Reports No Symptoms
Neurological: Reports No Symptoms
Endocrine: Reports No Symptoms
Hematologic/Lymphatic: Reports No Symptoms
Psych: Reports No Symptoms
Physical Exam
Vital Signs
Vital Signs
Temp Pulse Resp BP Pulse Ox
98.2 F 84 18 102/55 98
04/01/25 11:23 04/01/25 13:53 04/01/25 13:53 04/01/25 13:00 04/01/25 13:34
Physical Exam
General: Well Developed, Well Nourished and No Apparent Distress
HEENT: NormoCephalic, Moist mucous membranes and Atraumatic
Respiratory: Clear
Cardiac: S1/S2 and Regular Rhythm; No Murmur or Rub
GI: Soft, Non Tender, Non Distended and Normal Bowel Sounds; No Organomegaly
Rectal: Deferred by Provider
Musculoskeletal: No Clubbing, No Cyanosis and No Edema (Bilateral lower extremity)
Skin: No Rash
Neuro: AO x 3 and Nonfocal/grossly intact
Psych: Calm
Laboratory Results
-
04/01/25 11:56
04/01/25 11:56
Laboratory Results
Total Bilirubin 0.4 mg/dl (0.2-1.3) 04/01/25 11:56
AST 33 U/L (14-36) 04/01/25 11:56
ALT 18 U/L (0-35) 04/01/25 11:56
Alkaline Phosphatase 98 U/L (38-126) 04/01/25 11:56
Troponin I 0.095 ng/ml H* 04/01/25 13:13
Data Reviewed
-
Diagnostic Radiology: Report Reviewed by me
CT Scan: Report Reviewed by me
Lab Data: Labs Reviewed by me
Impression/Plan
-
# Frequent mechanical fall
- Head CT with no acute findings
- Hip x-ray negative
- Cervical spine CT with impression No acute osseous abnormality. Multilevel severe degenerative changes most pronounced at C3-C4, C5-C6 and C6-C7. Grade 1 anterolisthesis of C4 on C5 which is unchanged from prior..
- PT/OT consulted
# Acute hypoxia unclear cause concern for CHF
- BNP 5000
- PE study is negative
- Chest x-ray with impression of Thin linear density within the lateral aspect of the left lower lung on the frontal view, slightly smaller than previous examination. This is probably a small scar with improvement in previously seen atelectasis.The
rest of the lungs appear clear. Cardiac silhouette and vascular markings appear within normal limits.
-obtain COVID and FLU
- Continue supplemental oxygen to keep second to the 95, wean as tolerated
-torsemide continued
-cardiology consulted
- ECHO 09/2024 with with Normal biventricular size and systolic function without regional wall motion
abnormality. Estimated LVEF 60-65%.
Mild aortic stenosis.
Mild aortic regurgitation.
# Acute kidney injury secondary to diuretics for bilateral lymphedema
# History of nephrotic syndrome
- Creatinine 1.3
- Calcitrol, CellCept continued
- On prednisone as outpatient
# Elevated Trope chest pain demand ischemia secondary to possible CHF
- Troponin 0.095
- Denies chest pain
- Continue to trend Trope
- EKG with impression of normal sinus rhythm, nonspecific T wave abnormality
# Chronic lymphedema
- On diuretics for lymphedema
#Essential Hypertension
-Continue hydralazine, and metoprolol
- Hold losartan due to MARYANA
- Propranolol continued
#History of bladder prolapse
- Patient has pessary, she has not changed for the past 6 months
- Myrbetriq continue
-follow urology as outpatient
# GERD
- Omeprazole continued
#Hyperlipidemia
-Pravastatin continued
-Continue statin
#Osteoarthritis / Spinal Stenosis
#Chronic Pain Syndrome with Opioid Dependence
-Continue gabapentin
-Continue morphine and tramadol
DVT Prophylaxis: SCDs. Heparin
Code Status: Full Code
[2025-04-01 17:18] LABS: Troponin I 0.085 ng/ml
[2025-04-01 18:15] LABS: COVID-19 Antigen Negative (Negative)
--- NOTE | 2025-04-01 21:02 | CON.CAR ---
Consultation
Consultation Request
Date/Time Consultation Requested: 04/01/2023 at 1900
Date/Time Consultation Performed: 04/01/2023 at 2117
Requesting Provider: Hospitalist
Performing Provider: Dr. Smith
Reason for Consultation: Elevated proBNP
Medical History
-
History of Present Illness:
79-year-old female with a history of mild hypertension, dyslipidemia,, CKD, nephrotic syndrome,hypercalcemia, bilateral foot drop, and GERD. Patient presented with multiple falls.
.
Patient with recent medication change from Lasix to torsemide. Patient reportedly with history of chronic edema/lymphedema.
On initial presentation patient had some low blood pressures with systolic 95/49 there were varying blood pressures in the ER some systolics above 100 and there was some systolics in the 70s. Patient reportedly with hypoxemia and oxygen saturation
on room air 87% and was on [address] was negative for PE.. Neither chest CT or chest x-ray had additional parenchymal disease or evidence of heart failure. proBNP was elevated. Troponin 0.095. No complaints of chest discomfort.
.
Note patient had a hospitalization back in 2022 with an episode of syncope and there was some suspicion it was related to addition of diuretic at that time
PMH
above
PSH
appendectomy
tonsillectomy
Chest CT 04/01/2025
. No evidence of pulmonary embolism.
2. Mild bibasilar atelectasis.
3. Mild superior endplate compression deformities of the T4 and T5 vertebral bodies which are age indeterminant although may be chronic. Recommend correlation with point tenderness. There is a chronic mild compression deformity of the T12 vertebral
body.
Head CT 04/01/2025. No acute abnormality
Chest x-ray 04/01/2025 linear density lateral aspect of left lower lung smaller than previous exam probably small scar with improvement of previously seen atelectasis rest of lungs appear clear
Past Medical History
Past Medical History: Other (As above)
Social History
Tobacco: Non-Smoker
Family History
Family History: Reviewed & Not Pertinent
Allergies / Home Medications
Allergy/AdvReac Type Severity Reaction Status Date / Time
No Known Allergies Allergy Verified 03/16/25 13:27
�Medication �Instructions �Recorded �Confirmed �Type
aspirin 81 mg tablet,delayed 81 mg PO DAILY Blood Clot 11/25/22 04/01/25 History
release Prevention/Tx
calcitriol 0.5 mcg capsule 0.5 mcg PO MOWEFR Supplement 11/25/22 04/01/25 History
gabapentin 300 mg capsule 300 mg PO TID Neurological 11/25/22 04/01/25 History
Condition
glucosamine-chondroitin 250 mg-200 1 tab PO DAILY Supplement 11/25/22 04/01/25 History
mg tablet
losartan 100 mg tablet 100 mg PO DAILY Blood Pressure 11/25/22 04/01/25 History
mirabegron 50 mg tablet,extended 50 mg PO QPM Urinary Issue 11/25/22 04/01/25 History
release 24 hr (Myrbetriq)
mycophenolate mofetil 250 mg 250 mg PO BID 11/25/22 04/01/25 History
capsule
hydralazine 10 mg tablet 10 mg PO BID Heart 10/03/24 04/01/25 History
Disease/Condition
omeprazole 20 mg capsule,delayed 20 mg PO DAILY gerd 10/03/24 04/01/25 History
release
pravastatin 40 mg tablet 40 mg PO DAILY High Cholesterol 10/03/24 04/01/25 History
prednisone 10 mg tablet 10 mg PO DAILY 10/03/24 04/01/25 History
propranolol 40 mg tablet 80 mg PO DAILY Heart 10/03/24 04/01/25 History
Disease/Condition
therapeutic multivitamin 1 tab PO DAILY Supplement 10/03/24 04/01/25 History
turmeric root extract 500 mg 500 mg PO DAILY Supplement 10/03/24 04/01/25 History
capsule
tramadol 50 mg tablet 50 mg PO BIDPRN PRN moderate pain 10/12/24 04/01/25 Rx
#14 tabs
cranberry extract 200 mg capsule 200 mg PO DAILY Supplement 04/01/25 04/01/25 History
(Ellura)
metoprolol tartrate 25 mg tablet 25 mg PO BID Heart 04/01/25 04/01/25 History
Disease/Condition
morphine 15 mg tablet,extended 15 mg PO BID severe pain 04/01/25 04/01/25 History
release
omega-3s 330 mg-dha and epa 300 1 cap PO DAILY Supplement 04/01/25 04/01/25 History
mg-algal oil 600 mg capsule
torsemide 20 mg tablet 20 mg PO BID Fluid 04/01/25 04/01/25 History
Retention/Swelling
Review of Systems
-
All other systems: Negative unless noted
Physical Exam
Vital Signs
Temp Pulse Resp BP Pulse Ox
97.7 F 80 18 98/55 98
04/01/25 20:55 04/01/25 20:55 04/01/25 20:55 04/01/25 20:55 04/01/25 20:55
Lab Results
Troponin I 0.085 ng/ml H* 04/01/25 16:45
Mgq-N-Cmpnlphxpth Pept 5000 pg/ml 04/01/25 13:13
Physical Exam
General: No Apparent Distress and Other (Awake alert cooperative. Appears comfortable)
HEENT: Normocephalic, Anicteric and Other (External ear and nose exam unremarkable Nexplanon adenopathy no JVD)
Respiratory: Other (No wheezes rales or rhonchi)
Cardiac: Regular Rhythm and Other (Systolic murmur)
GI: Soft, Non Tender, Non Distended, Normal Bowel Sounds and Other (Normal Pap splenomegaly detected)
Musculoskeletal: No Clubbing, No Cyanosis and Edema (Moderate edema lower legs and feet bilaterally)
Skin: Dry
Neuro: Awake and Alert
Psych: Calm
Impression / Plan
-
.
Falls. May be multifactorial. Component may be related to hypotension and component of orthostatic hypotension and patient is on multiple antihypertensive meds and has been on increased diuretic. Patient had previous hospitalization in 2022 with
syncope and some suspicion that it may be related to loop diuretic. Head CT with no acute abnormality
- Hold diuretic
- Hypotension
-Additional assessment for other causes for falls other than hypotension as directed by hospitalist.
-Consider PT eval
.
Hypotension. May be multifactorial. Patient on multiple medications and recently had adjustment in diuretic from Lasix to torsemide which may contribute. No evidence of pulmonary embolism by CT. Infection always a consideration but no clear
evidence of infection at this time. Note patient with lower blood pressures in the ER but after arrival to IMU systolic blood pressure 112.
-Hold diuretic and antihypertensive meds.
- Monitor closely with addition of IV fluid
- Continue to assess for infection
- Serial hemoglobin
.
Abnormal troponin. Mild elevation. No chest discomfort suggest angina. ECG with nonspecific changes. Exact etiology unclear. May be non-MD troponin. Hypotension and MARYANA may play a role.
-Serial troponins
.
Elevated proBNP. Although the elevation from baseline raises some question regarding heart failure. proBNP more challenging to assess in the setting of MARYANA.. Patient's blood pressure and recent increase in diuretic raise concern for component of
volume depletion. No overt evidence of heart failure on CT or chest x-ray. Difficult to use edema as a measure considering patient has chronic edema and nephrotic syndrome.. Patient with echocardiogram the spring with normal left ventricular
function and mild aortic stenosis
- Continue to monitor clinical course
- Follow-up echocardiogram this admission.
-Continue with local measures and compression for leg edema. Note patient has lymphedema therapy at home.
.
Hypoxemia. Reported pulse oximetry of 87% on room air currently 98% on 2 L. Patient said no complaints of shortness of breath chest CT and chest x-ray findings as noted.
-Continue to monitor respiratory status and wean O2 as tolerated.
.
MARYANA. Acute on chronic. History of nephrotic syndrome. Creatinine up to 1.3.
- Optimize hemodynamics and monitor
-
.
Hypertension. History of multidrug hypertension. Continue to monitor as meds are held including losartan hydralazine metoprolol
Data Reviewed
-
EKG: Tracing Personally Visualized and interpreted and Report Reviewed by me
Radiology: Report Reviewed by me
Medical Tests (Nuc Med, Echo etc): Report Reviewed by me
Labs: Labs Reviewed by me
[2025-04-01 22:07] LABS: Hematocrit 38.8 % (37.0-47.0); Hemoglobin 12.3 g/dL (12.0-16.0); Mean Corp Hgb Conc. 31.7 g/dL (33.0-37.0); Mean Corpuscular Volume 96.3 fL (81.0-99.0); Platelet Count 174 10^3/uL (130-400); Red Cell Dist. Width 13.9 % (11.5-14.5)
[2025-04-01] MEDS: CELLCEPT 250 MG PO (22:17)
[2025-04-01] MEDS: NEURONTIN 300 MG PO (22:17)
[2025-04-01] MEDS: MS CONTIN (EXTENDED RELEASE) 15 MG PO (22:17)
[2025-04-01] MEDS: ROCALTROL PO (22:18)
[2025-04-01] MEDS: MYRBETRIQ EXTENDED RELEASE 50 MG PO (22:18)
[2025-04-01 22:30] LABS: Blood Urea Nitrogen 31 mg/dl (7-17); Calcium 9.1 mg/dl (8.4-10.2); Carbon Dioxide 36 mmol/L (22-30); Chloride 96 mmol/L (98-107); Estimated Creatinine Clearance 45 ml/min; Glucose 101 mg/dl (70-99); Potassium 4.2 mmol/L (3.5-5.1); Sodium 137 mmol/L (135-145); eGFR 46.05
[2025-04-01 22:49] LABS: Troponin I 0.069 ng/ml
[2025-04-01] MEDS: NSS 500 IV (23:01)
[2025-04-02] VITALS (18 sets, daily range): BP systolic 85–131; BP diastolic 49–80; PULSE 88–91; O2SAT 95–96; BMI 35.4
[2025-04-02 05:54] LABS: Hematocrit 36.6 % (37.0-47.0); Hemoglobin 11.5 g/dL (12.0-16.0); Mean Corp Hgb Conc. 31.4 g/dL (33.0-37.0); Mean Corpuscular Volume 95.1 fL (81.0-99.0); Platelet Count 148 10^3/uL (130-400); Red Cell Dist. Width 14.0 % (11.5-14.5)
[2025-04-02 06:18] LABS: Blood Urea Nitrogen 27 mg/dl (7-17); Calcium 8.8 mg/dl (8.4-10.2); Carbon Dioxide 35 mmol/L (22-30); Chloride 98 mmol/L (98-107); Estimated Creatinine Clearance 54 ml/min; Glucose 73 mg/dl (70-99); HDL Cholesterol 66 mg/dl; LDL Cholesterol, Calculated 61 mg/dl; Magnesium 2.1 mg/dl (1.6-2.3); Potassium 4.0 mmol/L (3.5-5.1); Sodium 137 mmol/L (135-145); Very Low Density Lipoprotein 26 mg/dl (0-30); eGFR 57.31
[2025-04-02 06:30] LABS: Troponin I 0.053 ng/ml
--- NOTE | 2025-04-02 08:11 | W.PN.HOSP.TC ---
Today's Communication/Plan
-
see PN
Assessment / Plan
Assessment / Plan
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
A/P:
#Falls with chronic ambulatory deficiency
two falls without LOC - first when walker wheel stuck in bathroom between tiles, secod - seld down from sofa and cound not raise
Patient minimally ambulatory on the baseline
PT/OT
#Acute hypoxic insufficiency, concern for acute on chronic HFpEF exacerbation
#Cannot excluude JERRI
#Troponin elvation, most likely non-ischemic myocardial injury due to CHF
EKG with new TWI
no chest pain
Cardio consult
multifactorial
CT without pulmonary embolism, no effusion, but minimal atelectasis
review showed minimal pulmonary edema
proBNP 5000 (734 2 week ago)
CHeck AM atreial blood gas
#MARYANA
#Minimal change disease with nephrotic syndrome
check urine protein/cr ratio
Cr baseline 0.8
Recently switched from Furosemide to Torsemide by Career Services Assistant
#Hypotension
as per patient - chronic
#mild superior endplate deformity of the T4 and T5 vertebral bodies
#Mild compression deformity of the T12 vertebral body
pain mgmt as needed
no significant spinal pain
cont Cellcept, prednisone
#Obesity
BMI 35.4
advised decreased calorie intake
unfortunately challenging issue with
#Recent diagnosis of b/l LE lymphedema
compression therapy
elevate extremety
#RLE wound
cut her RLE in the garcía area 2 weeks ago, s/p stiches removal
Healing well
#Social situation
poor ambulatory, lives alone, questionable if can function back at home
#CHronic pain
#GERD
#Urinary urgency
#NEuropathy
cont home meds
DVT ppx hep
FUll code
I have spent at least 59min reviewing chart, test results, communication with consultants and providing direct patient care
Anticipated Discharge: > 48 hours
Subjective/Interval History
-
Date of Service: April 02, 2025
Objective Data
-
Labs:
Laboratory Results
04/01/25 04/02/25
21:58 05:40
WBC 7.5 6.1
Hgb 12.3 11.5 L
Hct 38.8 36.6 L
Plt Count 174 148
Sodium 137 137
Potassium 4.2 4.0
Chloride 96 L 98
Carbon Dioxide 36 H 35 H
BUN 31 H 27 H
Creatinine 1.2 H 1.0
Glucose 101 H 73
Calcium 9.1 8.8
Vital Signs:
Vital Signs
Temp Pulse Resp BP Pulse Ox
98.8 F 84 19 85/49 96
04/02/25 03:49 04/02/25 06:30 04/02/25 06:30 04/02/25 06:00 04/02/25 06:30
Review of Systems
-
History Source: Patient
All other systems: Reviewed and negative
Constitutional: Reports Fatigue
Physical Exam
-
General: No Apparent Distress and Obese
HEENT: Normocephalic
Respiratory: Clear to Auscultation
Cardiac: Regular Rhythm
GI: Soft, Nontender and Nondistended
Musculoskeletal: No Clubbing, No Cyanosis, Edema, Right Lower Extrem and Edema, Left Lower Extrem
Skin: Warm and Lesions (healing wound on R garcía); Negative Ulcers
Neuro: Awake, Alert, Oriented and AO x 3
Psych: Calm
--- NOTE | 2025-04-02 08:29 | PTCARENOTE ---
Patient received from night club manager. Patient resting comfortably in bed. AAO, VSS. No events noted overnight. No complaints of pain at this time other than with urinating. Will reach out to hospitalist about sending another urine. Currently on
3L N/C, will attempt to wean as tolerated. No testing scheduled at this time. Call [email or web address] in reach.
[2025-04-02] MEDS: ASPIR LOW (ENTERIC COATED) 81 MG PO (08:59)
[2025-04-02] MEDS: NEURONTIN 300 MG PO ×3 (08:59→20:13)
[2025-04-02] MEDS: PRAVACHOL 40 MG PO (08:59)
[2025-04-02] MEDS: MS CONTIN (EXTENDED RELEASE) 15 MG PO (08:59)
[2025-04-02] MEDS: PROTONIX 40 MG PO (08:59)
[2025-04-02] MEDS: DELTASONE 10 MG PO (08:59)
[2025-04-02] MEDS: CELLCEPT 250 MG PO ×2 (09:14→20:13)
--- NOTE | 2025-04-02 10:42 | W.PN.CD ---
Today's Communication / Plan
-
Blood pressures remain relatively low but patient currently asymptomatic.
Continue to hold antihypertensive medications and monitor.
Temperature 99.3. No other higher temperatures. Patient reported being cold in the room although the temperature seem to be quite warm. Check blood cultures.
Impression / Plan
-
.
Falls. May be multifactorial. Component may be related to hypotension and component of orthostatic hypotension and patient is on multiple antihypertensive meds and has been on increased diuretic. Patient had previous hospitalization in 2022 with
syncope and some suspicion that it may be related to loop diuretic. Head CT with no acute abnormality
- Hold diuretic
- Hypotension
-Additional assessment for other causes for falls other than hypotension as directed by hospitalist.
-Consider PT eval
.
Hypotension. May be multifactorial. Patient on multiple medications and recently had adjustment in diuretic from Lasix to torsemide which may contribute. No evidence of pulmonary embolism by CT. Infection always a consideration but no clear
evidence of infection at this time. Note patient with lower blood pressures in the ER but after arrival to IMU systolic blood pressure 112. Patient denies any chance that she took her medications incorrectly. Medications are in pillboxes.
-Blood pressure remains relatively low.
-Hold diuretic and antihypertensive meds.
- Continue to assess for infection
.
Anemia. Mild reduction to 11.5 likely related to volume replacement. No evidence of acute bleeding
.
Abnormal troponin. Mild elevation. No chest discomfort suggest angina. ECG with nonspecific changes. Exact etiology unclear. May be non-MA troponin. Hypotension and MARYANA may play a role.
-Serial troponins
.
Elevated proBNP. Although the elevation from baseline raises some question regarding heart failure. proBNP more challenging to assess in the setting of MARYANA.. Patient's blood pressure and recent increase in diuretic raise concern for component of
volume depletion. No overt evidence of heart failure on CT or chest x-ray. Difficult to use edema as a measure considering patient has chronic edema and nephrotic syndrome.. Patient with echocardiogram the spring with normal left ventricular
function and mild aortic stenosis.
-Despite administration of IV fluids patient's respiratory status has remained stable. Currently 98% on 2 L. Would try to wean O2 off.
-Continue with local measures and compression for leg edema. Note patient has lymphedema therapy at home.
.
Hypoxemia. Reported pulse oximetry of 87% on room air currently 98% on 2 L. Patient said no complaints of shortness of breath chest CT and chest x-ray findings as noted. Exact etiology unclear. Although proBNP elevated not all pieces fit as
being related to heart failure. Issues as noted above
-Continue to monitor respiratory status and wean O2 as tolerated.
.
MARYANA. Acute on chronic. History of nephrotic syndrome. Creatinine up to 1.3 on presentation and 1.0
- Optimize hemodynamics and monitor
-
.
Hypertension. History of multidrug hypertension. Continue to monitor as meds are held including losartan hydralazine metoprolol
Physical Exam
Vital Signs/Labs
Vital Signs
Temp Pulse Resp BP Pulse Ox
99.3 F 84 19 85/49 96
04/02/25 07:30 04/02/25 06:30 04/02/25 06:30 04/02/25 06:00 04/02/25 06:30
04/01/25 04/02/25 04/03/25
06:59 06:59 05:59
Actual Weight 99.393 kg
04/02/25 05:40
04/02/25 05:40
Magnesium 2.1 mg/dl (1.6-2.3) 04/02/25 05:40
Triglycerides 130 mg/dl (10-149) 04/02/25 05:40
LDL Cholesterol, Calc 61 mg/dl 04/02/25 05:40
VLDL Cholesterol, Calc 26 mg/dl (0-30) 04/02/25 05:40
HDL Cholesterol 66 mg/dl 04/02/25 05:40
04/01/25
13:13
Plg-K-Hgbkkwkuymj Pept 5000
LAB Results
04/01/25 04/01/25 04/01/25
13:13 16:45 21:58
Troponin I 0.095 H* 0.085 H* 0.069 H*
04/02/25
05:40
Troponin I 0.053 H*
Physical Exam
Constitutional: No acute distress
Cardiovascular: Rhythm & rate is regular
Respiratory: Wheeze Absent and Rhonchi Absent
GI: Soft and Non tender
Neuro/Psych: Alert
Data Reviewed
-
Date of Service: April 02, 2025
Medical Decision Making: Reviewed Test Results
Echo: Report Reviewed by me
X-Ray/CT/US/MRI/NUC/PET: Report Reviewed by me
Medical Tests (PFT, Pathology etc): Report Reviewed by me
Labs: Labs Reviewed by me
[2025-04-02] MEDS: NSS 500 IV (13:00)
--- NOTE | 2025-04-02 14:06 | W.PN.UPDATE ---
Update Note
Progress Note Update
some warmth and redness around RLE wound - start Ancef for cellulitis
[2025-04-02 15:04] LABS: Urine Character Slightly Cloudy (Clear)
[2025-04-02] MEDS: TYLENOL 650 MG PO (15:57)
[2025-04-02] MEDS: ANCEF 10 IV (17:15)
[2025-04-02] MEDS: MYRBETRIQ EXTENDED RELEASE 50 MG PO (18:23)
[2025-04-03] VITALS (15 sets, daily range): BP systolic 83–133; BP diastolic 48–83; BMI 35.0
[2025-04-03] MEDS: MS CONTIN (EXTENDED RELEASE) PO (00:04)
[2025-04-03] MEDS: ANCEF 10 IV ×3 (00:37→17:05)
[2025-04-03 05:03] LABS: Hematocrit 37.2 % (37.0-47.0); Hemoglobin 11.5 g/dL (12.0-16.0); Mean Corp Hgb Conc. 30.9 g/dL (33.0-37.0); Mean Corpuscular Volume 98.9 fL (81.0-99.0); Nucleated Red Blood Cells % 0 %; Platelet Count 151 10^3/uL (130-400); Red Cell Dist. Width 14.0 % (11.5-14.5)
[2025-04-03 05:12] LABS: Blood Urea Nitrogen 22 mg/dl (7-17); Calcium 8.9 mg/dl (8.4-10.2); Carbon Dioxide 35 mmol/L (22-30); Chloride 100 mmol/L (98-107); Estimated Creatinine Clearance 60 ml/min; Glucose 80 mg/dl (70-99); Magnesium 2.2 mg/dl (1.6-2.3); Potassium 3.8 mmol/L (3.5-5.1); Sodium 140 mmol/L (135-145); eGFR > 60.00
[2025-04-03 05:46] LABS: B.E. 11.1 mmol/L; HCO3 36.4 mmol/L (21-28); O2 Saturation % 99.5 % (94-98); PCO2 50 mmHg (32-35); PO2 117 mmHg (83-108)
--- NOTE | 2025-04-03 08:10 | PTCARENOTE ---
Caring for pt overnight. aaox3, pleasant. NSR, remains RA. legs elevated on pillows. IVabx given. BPs running soft but stable. No other issues. will monitor.
[2025-04-03] MEDS: ASPIR LOW (ENTERIC COATED) 81 MG PO (09:27)
[2025-04-03] MEDS: CELLCEPT 250 MG PO ×2 (09:27→20:13)
[2025-04-03] MEDS: MS CONTIN (EXTENDED RELEASE) 15 MG PO ×2 (09:27→20:13)
[2025-04-03] MEDS: DELTASONE 20 MG PO (09:28)
[2025-04-03 09:29] LABS: Cortisol, Random 4.7 ug/dl
[2025-04-03] MEDS: PROTONIX 40 MG PO (09:30)
[2025-04-03] MEDS: PRAVACHOL 40 MG PO (09:30)
[2025-04-03] MEDS: NEURONTIN 200 MG PO ×3 (09:30→20:13)
--- NOTE | 2025-04-03 11:19 | W.PN.HOSP.TC ---
Today's Communication/Plan
-
cont Ancef, pending Ucx
PT/OT
wean off O2
CT abd/pelvis
US LE
Assessment / Plan
Assessment / Plan
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 ALso concerned
for indolent infection.
A/P:
#Hypotension
Patient remains asymptomatic when in chair, no dizziness noted
as per patient - hypotension is chronic for the past couple of months
stop antihypertensives
TSH WNL
Increase Prednisone, since cannot exclude iatrogenic adrenal insufficiency, Cortisol level would be useless
BCx sent as card concerned for indolent infection
#Positive UA
PAin with urination
pending Ucx, cont ancef and adjust as needed
#RLE mild cellulitis
#Recent diagnosis of lymphedema
concern for lymph flow blockage. Same by [facility] in [facility]. Will order CT abd/pelvis to complete w/u
US LE
Ancef
#Falls with chronic ambulatory deficiency
two falls without LOC - first when walker wheel stuck in bathroom between tiles, second - self down from sofa and could not raise
Patient minimally ambulatory on the baseline
PT/OT
#Acute hypoxic insufficiency, concern for acute on chronic HFpEF exacerbation
#Cannot exclude JERRI
#Troponin elevation, most likely non-ischemic myocardial injury due to CHF
EKG with new TWI
no chest pain
Cardio consult
multifactorial
CT without pulmonary embolism, no effusion, but minimal atelectasis
review showed minimal pulmonary edema
proBNP 5000 (734 2 week ago)
Arterial blood gas without signs of nocturnal CO2 retention
#MARYANA - resolved
#Minimal change disease with nephrotic syndrome
check urine protein/cr ratio
Cr baseline 0.8
Recently switched from Furosemide to Torsemide by Operations Examiner
#mild superior endplate deformity of the T4 and T5 vertebral bodies
#Mild compression deformity of the T12 vertebral body
pain mgmt as needed
no significant spinal pain
cont CellCept, prednisone
#Obesity
BMI 35.4
advised decreased calorie intake
#Recent diagnosis of b/l LE lymphedema
compression therapy
elevate extremely
#Social situation
poor ambulatory, lives alone, questionable if can function back at home - PT/OT recommend STR
#Chronic pain
#GERD
#Urinary urgency
#Neuropathy
cont home meds
DVT ppx Lovenox - declined heparin on previous occasions
FUll code
I have spent at least 51min reviewing chart, test results, communication with consultants, daughter over the phone and providing direct patient care
Anticipated Discharge: 24 - 48 hours
Subjective/Interval History
-
Date of Service: April 03, 2025
Objective Data
-
Labs:
Laboratory Results
04/03/25 04/03/25
04:30 05:23
WBC 8.8
Hgb 11.5 L
Hct 37.2
Plt Count 151
HCO3 36.4 H
Sodium 140
Potassium 3.8
Chloride 100
Carbon Dioxide 35 H
BUN 22 H
Creatinine 0.9
Glucose 80
Calcium 8.9
Vital Signs:
Vital Signs
Temp Pulse Resp BP Pulse Ox
99.6 F 101 20 103/76 88
04/03/25 07:45 04/03/25 09:00 04/03/25 09:00 04/03/25 08:00 04/03/25 09:00
Review of Systems
-
History Source: Patient
All other systems: Reviewed and negative
Physical Exam
-
General: No Apparent Distress
HEENT: Normocephalic
Respiratory: Clear to Auscultation
Cardiac: Regular Rhythm
GI: Soft, Nontender and Nondistended
Musculoskeletal: No Clubbing, No Cyanosis and No Edema
Neuro: Awake, Alert, Oriented and AO x 3
Psych: Calm
--- NOTE | 2025-04-03 11:27 | W.PN.CD ---
Today's Communication / Plan
-
Patient in no distress blood pressures remain low despite patient not being given antihypertensive medication during this hospitalization. Exact cause for lower pressure is unclear. Patient had adjustment in her steroids as per primary team.
Patient has had a temp of 99.6 but no higher temps. Await blood cultures which are pending. Echocardiogram tomorrow
Impression / Plan
-
.
Falls. May be multifactorial. Component may be related to hypotension and component of orthostatic hypotension and patient is on multiple antihypertensive meds and has been on increased diuretic. Patient had previous hospitalization in 2022 with
syncope and some suspicion that it may be related to loop diuretic. Head CT with no acute abnormality
- Hold diuretic
- Hypotension
-Additional assessment for other causes for falls other than hypotension as directed by hospitalist.
-Consider PT eval
.
Hypotension. May be multifactorial. Patient on multiple medications and recently had adjustment in diuretic from Lasix to torsemide which may contribute. No evidence of pulmonary embolism by CT. Infection always a consideration but no clear
evidence of infection at this time. Note patient with lower blood pressures in the ER but after arrival to IMU systolic blood pressure 112. Patient denies any chance that she took her medications incorrectly. Medications are in pillboxes.
-Blood pressure remains relatively low.
-Hold diuretic and antihypertensive meds.
- Continue to assess for infection
- Steroids were adjusted by primary team.
.
Anemia. Mild reduction to 11.5 likely related to volume replacement. No evidence of acute bleeding
.
Abnormal troponin. Mild elevation. No chest discomfort suggest angina. ECG with nonspecific changes. Exact etiology unclear. May be non-[place] troponin. Hypotension and MARYANA may play a role.
-Serial troponins
.
Elevated proBNP. Although the elevation from baseline raises some question regarding heart failure. proBNP more challenging to assess in the setting of MARYANA.. Patient's blood pressure and recent increase in diuretic raise concern for component of
volume depletion. No overt evidence of heart failure on CT or chest x-ray. Difficult to use edema as a measure considering patient has chronic edema and nephrotic syndrome.. Patient with echocardiogram the spring with normal left ventricular
function and mild aortic stenosis.
-Despite administration of IV fluids patient's respiratory status has remained stable. Currently 98% on 2 L. Would try to wean O2 off.
-Continue with local measures and compression for leg edema. Note patient has lymphedema therapy at home.
.
Hypoxemia. Reported pulse oximetry of 87% on room air currently 98% on 2 L. Patient said no complaints of shortness of breath chest CT and chest x-ray findings as noted. Exact etiology unclear. Although proBNP elevated not all pieces fit as
being related to heart failure. Issues as noted above
-Continue to monitor respiratory status and wean O2 as tolerated.
.
MARYANA. Acute on chronic. History of nephrotic syndrome. Creatinine up to 1.3 on presentation and 1.0
- Optimize hemodynamics and monitor
-
.
Hypertension. History of multidrug hypertension. Continue to monitor as meds are held including losartan hydralazine metoprolol
Physical Exam
Vital Signs/Labs
Vital Signs
Temp Pulse Resp BP Pulse Ox
99.6 F 101 20 103/76 88
04/03/25 07:45 04/03/25 09:00 04/03/25 09:00 04/03/25 08:00 04/03/25 09:00
04/02/25 04/03/25 04/04/25
06:59 05:59 06:59
Actual Weight 99.393 kg 98.43 kg
04/03/25 04:30
04/03/25 04:30
Magnesium 2.2 mg/dl (1.6-2.3) 04/03/25 04:30
Triglycerides 130 mg/dl (10-149) 04/02/25 05:40
LDL Cholesterol, Calc 61 mg/dl 04/02/25 05:40
VLDL Cholesterol, Calc 26 mg/dl (0-30) 04/02/25 05:40
HDL Cholesterol 66 mg/dl 04/02/25 05:40
10/31/25
13:13
Etu-P-Kaqtedheuxl Pept 5000
LAB Results
04/01/25 04/01/25 04/01/25
13:13 16:45 21:58
Troponin I 0.095 H* 0.085 H* 0.069 H*
04/02/25
05:40
Troponin I 0.053 H*
Physical Exam
Constitutional: No acute distress
Cardiovascular: Rhythm & rate is regular
GI: Non tender
Neuro/Psych: Alert and Oriented
Data Reviewed
-
Date of Service: April 03, 2025
Medical Decision Making: Reviewed Test Results
X-Ray/CT/US/MRI/NUC/PET: Discussed with Physician
Medical Tests (PFT, Pathology etc): Report Reviewed by me
Labs: Labs Reviewed by me
[2025-04-03] MEDS: OMNIPAQUE 50 ML PO (12:12)
--- NOTE | 2025-04-03 15:27 | CM ---
I.A: Completed by KUNAL Moreno. Patient lives alone in an apartment where she uses a rolling walker and has a transport chair. Patient has [employer] from 10:30-3:30pm 2-4x a week. Patient uses [facility] so referral made to them.
PCP: Dr. Ratna Higgins
Pharmacy: [facility]
Patient will need transportation home, she says so CM to revisit this with patient. PLAN: Home w/ [facility] when ready vs. SNF.
--- NOTE | 2025-04-03 16:47 | W.PN.UPDATE ---
Update Note
Progress Note Update
CT without overt reason for lymphedema. However found cystic foci measuring up to 1.4 cm along the superior aspect of the pancreatic neck - cannot exclude IPMN. Outpatient MRI w/wo contrast with pancreatic protocol to be advised in d/c instructions
[2025-04-03] MEDS: FLUSH (NSS) 2 FLUSH IV (17:10)
--- NOTE | 2025-04-03 18:00 | PTCARENOTE ---
Patient alert and oriented x3, pleasant. She can make her needs known and calling for RN appropriately. Appetite fair. Grossly INC of urine. Patient has not had BM since admission on 04/01. She does not recall when her last BM was. Medicated
patient with miralex and senna as per PRN orders. SR on monitor with HR 80-90's. BP soft but stable. Patient denies any feeling lightheaded or dizzy. Will monitor.
[2025-04-03] MEDS: MIRALAX 17 GRAMS PO (18:44)
[2025-04-03] MEDS: SENOKOT-S 1 TABLET PO (18:44)
[2025-04-03] MEDS: MYRBETRIQ EXTENDED RELEASE 50 MG PO (18:45)
[2025-04-04] VITALS (14 sets, daily range): BP systolic 88–150; BP diastolic 54–104; BMI 35.1
[2025-04-04] MEDS: ANCEF 10 IV ×3 (00:34→17:00)
--- NOTE | 2025-04-04 03:54 | PTCARENOTE ---
Caring for pt overnight. aaox3, pleasant. NSR, placed on 2LNC overnight for desating to 85%. BP's running soft but stable. +3 BLE, seems to be improving. No other assessment changes. Will monitor.
[2025-04-04 04:54] LABS: Hematocrit 36.9 % (37.0-47.0); Hemoglobin 11.6 g/dL (12.0-16.0); Mean Corp Hgb Conc. 31.4 g/dL (33.0-37.0); Mean Corpuscular Volume 95.8 fL (81.0-99.0); Nucleated Red Blood Cells % 0 %; Platelet Count 151 10^3/uL (130-400); Red Cell Dist. Width 13.8 % (11.5-14.5)
[2025-04-04 05:24] LABS: ALT (SGPT) < 10 U/L (0-35); AST (SGOT) 24 U/L (14-36); Albumin 3.1 g/dl (3.5-5.0); Alkaline Phosphatase 79 U/L (38-126); Blood Urea Nitrogen 15 mg/dl (7-17); Calcium 8.9 mg/dl (8.4-10.2); Carbon Dioxide 33 mmol/L (22-30); Chloride 102 mmol/L (98-107); Estimated Creatinine Clearance 68 ml/min; Glucose 84 mg/dl (70-99); Potassium 4.1 mmol/L (3.5-5.1); Sodium 138 mmol/L (135-145); Total Protein 5.2 g/dl (6.3-8.2); eGFR > 60.00
[2025-04-04] MEDS: MS CONTIN (EXTENDED RELEASE) 15 MG PO ×2 (08:18→20:07)
[2025-04-04] MEDS: NEURONTIN 200 MG PO ×3 (08:18→20:07)
[2025-04-04] MEDS: PROTONIX 40 MG PO (08:18)
[2025-04-04] MEDS: CELLCEPT 250 MG PO ×2 (08:19→20:07)
[2025-04-04] MEDS: DELTASONE 20 MG PO (08:19)
[2025-04-04] MEDS: PRAVACHOL 40 MG PO (08:19)
[2025-04-04] MEDS: ASPIR LOW (ENTERIC COATED) 81 MG PO (08:19)
[2025-04-04] MEDS: ROCALTROL 0.5 MCG PO (08:27)
--- NOTE | 2025-04-04 09:52 | W.PN.CD ---
Addendum entered and electronically signed by Memo Croft MD 04/04/25 14:29:
I saw and evaluated the patient, and I provided the substantive portion of the medical decision making.
I reviewed and agree with the note by Ms Robertson and it accurately reflects our care.
I personally performed the medical decision making of the this encounter and my assessment and plan is below:
Hold diuresis
She has mild we will follow in our office.
We will sign off, I would not restart torsemide; we will arrange follow up
Original Note:
Today's Communication / Plan
-
Echocardiogram today
BL LE US pending
Impression / Plan
-
I/P: 79F with mild , hypertension, dyslipidemia, CKD, nephrotic syndrome with proteinuria, hypercalcemia, bilateral foot drop, and GERD presents with falls.
Outpatient computer game programmer: would be Dr. Sanders
Rv Service Technician: Dr. Deonte Moise ([place])
Falls, acute on chronic
- Chronic ambulatory insufficiency
- Vital signs not consistent with orthostatic hypotension
- Diuretic on hold
Hypertension now with hypotension, may be multifactorial
- Patient on multiple medications and recently had adjustment in diuretic from Lasix to torsemide which may contribute.
- No evidence of pulmonary embolism by CT.
- Infection always a consideration, UA+, COURT MANAGER pending
- Hold diuretic and antihypertensive meds.
- Steroids were adjusted by primary team.
Anemia, type unknown
- Mild reduction to 11.5 likely related to volume replacement. No evidence of acute bleeding
Abnormal troponin, type unknown, likely nonischemic myocardial injury in the setting of MARYANA
- No chest discomfort suggest angina
- Troponins: 0.095 -> 0.085 -> 0.069 -> 0.053
- ECG with nonspecific changes
- Hypotension and MARYANA may play a role.
Elevated proBNP
- Although the elevation from baseline raises some question regarding heart failure. proBNP more challenging to assess in the setting of MARYANA.
- Patient's blood pressure and recent increase in diuretic raise concern for component of volume depletion.
- No overt evidence of heart failure on CT or chest x-ray. Difficult to use edema as a measure considering patient has chronic edema and nephrotic syndrome. LVEF in May normal.
- Despite administration of IV fluids patient's respiratory status has remained stable. Currently 98% on 2 L. Would try to wean O2 off.
Hypoxemia
- Currently tolerating 3 L nasal cannula
- No complaints of shortness of breath chest CT and chest x-ray findings as noted. Exact etiology unclear. Although proBNP elevated not all pieces fit as being related to heart failure.
- Continue to monitor respiratory status and wean O2 as tolerated.
Lymphedema, bilateral lower extremity
- US today ordered by primary, if negative, recommend compression
- Consider outpatient referral to the lymphedema clinic
Aortic stenosis, mild, update TTE
CKD2, nephrotic syndrome, with proteinuria, on CellCept and Losartan
MARYANA, resolved
Hypercalcemia
GERD, continue PPI
HLD, continue atorvastatin
Chronic arthritis
Physical Exam
Vital Signs/Labs
Vital Signs
Temp Pulse Resp BP Pulse Ox
98.5 F 85 21 108/57 97
04/04/25 08:28 04/04/25 06:00 04/04/25 06:00 04/04/25 06:00 04/04/25 06:00
04/03/25 04/04/25 04/05/25
05:59 06:59 06:59
Actual Weight 98.43 kg 98.702 kg
04/04/25 04:32
04/04/25 04:32
Magnesium 2.2 mg/dl (1.6-2.3) 04/03/25 04:30
Triglycerides 130 mg/dl (10-149) 04/02/25 05:40
LDL Cholesterol, Calc 61 mg/dl 04/02/25 05:40
VLDL Cholesterol, Calc 26 mg/dl (0-30) 04/02/25 05:40
HDL Cholesterol 66 mg/dl 04/02/25 05:40
04/01/25
13:13
Tcv-C-Cinhljjfbfa Pept 5000
LAB Results
04/01/25 04/01/25 04/01/25
13:13 16:45 21:58
Troponin I 0.095 H* 0.085 H* 0.069 H*
04/02/25
05:40
Troponin I 0.053 H*
Physical Exam
Constitutional: No acute distress
EENT: Anicteric and Moist mucous membranes
Cardiovascular: Rhythm & rate is regular and Pedal edema is absent
Respiratory: Respiratory effort normal and Lungs clear to auscul.
GI: Soft, Distention absent and Non tender
Neuro/Psych: Alert and Oriented
Data Reviewed
-
Date of Service: April 04, 2025
Labs: Labs Reviewed by me
Old Records: Reviewed
--- NOTE | 2025-04-04 14:28 | W.PN.HOSP.TC ---
Today's Communication/Plan
-
Monitor vital signs
see plan
Echo
PT
Discharge planning
Assessment / Plan
Assessment / Plan
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 ALso concerned
for indolent infection.
A/P:
#Hypotension
Patient remains asymptomatic when in chair, no dizziness noted
as per patient - hypotension is chronic for the past couple of months
stop antihypertensives
TSH WNL
Increase Prednisone, since cannot exclude iatrogenic adrenal insufficiency, Cortisol level would be useless
BCx sent as card concerned for indolent infection, NGTD
Echo with mild
#Positive UA
PAin with urination
pending Ucx with sensitivities, growing Proteus, cont ancef and adjust as needed
#RLE mild cellulitis
#Recent diagnosis of lymphedema
concern for lymph flow blockage. Same by [facility]x in [facility].
CT without overt reason for lymphedema. However found cystic foci measuring up to 1.4 cm along the superior aspect of the pancreatic neck - cannot exclude IPMN. Outpatient MRI w/wo contrast with pancreatic protocol to be advised in d/c instructions
US LE neg for DVT
Ancef
#Falls with chronic ambulatory deficiency
two falls without LOC - first when walker wheel stuck in bathroom between tiles, second - self down from sofa and could not raise
Patient minimally ambulatory on the baseline
PT/OT rec SNF
#Acute hypoxic insufficiency, likely secondary to atelectasis
#Cannot exclude JERRI
#Troponin elevation, most likely non-ischemic myocardial injury due to CHF
EKG with new TWI
no chest pain
Cardiology following
multifactorial
CT without pulmonary embolism, no effusion, but minimal atelectasis
review showed minimal pulmonary edema
proBNP 5000 (734 2 week ago)
Arterial blood gas without signs of nocturnal CO2 retention
#MARYANA - resolved
#Minimal change disease with nephrotic syndrome
check urine protein/cr ratio
Cr baseline 0.8
Recently switched from Furosemide to Torsemide by Floor Plan Adjuster. Cardiology recommended not to continue diuresis on discharge. Do not think elevated proBNP is accurate here
#mild superior endplate deformity of the T4 and T5 vertebral bodies
#Mild compression deformity of the T12 vertebral body
pain mgmt as needed
no significant spinal pain
cont CellCept, prednisone
#Obesity
BMI 35.4
advised decreased calorie intake
#Recent diagnosis of b/l LE lymphedema
compression therapy
elevate extremely
#Social situation
poor ambulatory, lives alone, questionable if can function back at home - PT/OT recommend STR
#Chronic pain
#GERD
#Urinary urgency
#Neuropathy
cont home meds
DVT ppx Lovenox - declined heparin on previous occasions
FUll code
General: No Apparent Distress
HEENT: Normocephalic
Respiratory: Clear to Auscultation
Cardiac: Regular Rhythm
GI: Soft, Nontender and Nondistended
Musculoskeletal: Edema
Neuro: Awake, Alert, Oriented and AO x 3
Psych: Calm
Anticipated Discharge: Within 24 hours
Subjective/Interval History
-
Date of Service: April 04, 2025
denies pain
Objective Data
-
Labs:
Laboratory Results
04/04/25
04:32
WBC 8.1
Hgb 11.6 L
Hct 36.9 L
Plt Count 151
Sodium 138
Potassium 4.1
Chloride 102
Carbon Dioxide 33 H
BUN 15
Creatinine 0.8
Glucose 84
Calcium 8.9
Total Bilirubin 0.4
AST 24
ALT < 10
Alkaline Phosphatase 79
Vital Signs:
Vital Signs
Temp Pulse Resp BP Pulse Ox
98.9 F 94 18 150/77 95
04/04/25 12:24 04/04/25 12:00 04/04/25 12:00 04/04/25 12:00 04/04/25 12:16
I&O
04/03/25 04/04/25 04/05/25
05:59 06:59 06:59
Intake Total 1050 / 1050
Balance 1050 / 1050
--- NOTE | 2025-04-04 16:44 | CM ---
F/U: PT/OT saw the patient on 04/02, but not today due to a test. Patient told KUNAL Tiffanie that she is may NOT be interested in SNF because she sat around at [facility] vs. she could do more at home. PT/OT would need to evaluate her tomorrow before she
decides. Patient cannot get MRI on this admission even though she wants to re: her pancreas spot. PLAN: Home PT v. SNF.
[2025-04-04] MEDS: DETROL LA 2 MG PO (17:58)
[2025-04-04] MEDS: SENOKOT-S 1 TABLET PO (20:07)
[2025-04-04] MEDS: MIRALAX 17 GRAMS PO (20:07)
[2025-04-05] VITALS (16 sets, daily range): BP systolic 87–137; BP diastolic 58–95; PULSE 87–122; BMI 35.2
[2025-04-05] MEDS: ANCEF 10 IV ×4 (00:40→22:59)
[2025-04-05] MEDS: TYLENOL 650 MG PO (04:30)
[2025-04-05 05:48] LABS: Hematocrit 34.8 % (37.0-47.0); Hemoglobin 11.2 g/dL (12.0-16.0); Mean Corp Hgb Conc. 32.2 g/dL (33.0-37.0); Mean Corpuscular Volume 96.9 fL (81.0-99.0); Nucleated Red Blood Cells % 0 %; Platelet Count 140 10^3/uL (130-400); Red Cell Dist. Width 13.7 % (11.5-14.5)
[2025-04-05 06:18] LABS: ALT (SGPT) < 10 U/L (0-35); AST (SGOT) 24 U/L (14-36); Albumin 3.1 g/dl (3.5-5.0); Alkaline Phosphatase 72 U/L (38-126); Blood Urea Nitrogen 15 mg/dl (7-17); Calcium 8.7 mg/dl (8.4-10.2); Carbon Dioxide 33 mmol/L (22-30); Chloride 101 mmol/L (98-107); Estimated Creatinine Clearance 77 ml/min; Glucose 79 mg/dl (70-99); Potassium 3.8 mmol/L (3.5-5.1); Sodium 136 mmol/L (135-145); Total Protein 5.0 g/dl (6.3-8.2); eGFR > 60.00
--- NOTE | 2025-04-05 06:53 | PTCARENOTE ---
Caring for pt overnight, aaox3 pleasant. NSR, remains RA. BPs can run soft overnight but stabilize by morning. ivabx. Refuses q2t. No other issues, will monitor.
[2025-04-05] MEDS: PROTONIX 40 MG PO (08:42)
[2025-04-05] MEDS: ASPIR LOW (ENTERIC COATED) 81 MG PO (08:42)
[2025-04-05] MEDS: CELLCEPT 250 MG PO ×2 (08:42→22:58)
[2025-04-05] MEDS: PRAVACHOL 40 MG PO (08:42)
[2025-04-05] MEDS: MS CONTIN (EXTENDED RELEASE) 15 MG PO ×2 (08:42→22:58)
[2025-04-05] MEDS: NEURONTIN 200 MG PO ×3 (08:42→22:58)
[2025-04-05] MEDS: DELTASONE 20 MG PO (08:43)
--- NOTE | 2025-04-05 14:04 | W.PN.HOSP.TC ---
Today's Communication/Plan
-
Monitor vitals
See plan
Continue with cefazolin
PT recommending SNF, patient now agrees. Case management made aware
dulcolax
Assessment / Plan
Assessment / Plan
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 ALso concerned
for indolent infection.
A/P:
#Hypotension
Patient remains asymptomatic when in chair, no dizziness noted
as per patient - hypotension is chronic for the past couple of months
stop antihypertensives
TSH WNL
Increase Prednisone, since cannot exclude iatrogenic adrenal insufficiency, Cortisol level would be useless
BCx sent as card concerned for indolent infection, NGTD
Echo with mild
#Positive UA
PAin with urination
Urine culture with Proteus. Discussed with pharmacy and will continue cont ancef
#RLE mild cellulitis
#Recent diagnosis of lymphedema
concern for lymph flow blockage. Same by V[facility]x in [facility].
CT without overt reason for lymphedema. However found cystic foci measuring up to 1.4 cm along the superior aspect of the pancreatic neck - cannot exclude IPMN. Outpatient MRI w/wo contrast with pancreatic protocol to be advised in d/c instructions
US LE neg for DVT
Ancef
Constipation
Continue laxatives, Dulcolax
#Falls with chronic ambulatory deficiency
two falls without LOC - first when walker wheel stuck in bathroom between tiles, second - self down from sofa and could not raise
Patient minimally ambulatory on the baseline
PT/OT rec SNF; patient now agrees
#Acute hypoxic insufficiency, likely secondary to atelectasis
#Cannot exclude JERRI
#Troponin elevation, most likely non-ischemic myocardial injury due to CHF
EKG with new TWI
no chest pain
Cardiology following
multifactorial
CT without pulmonary embolism, no effusion, but minimal atelectasis
review showed minimal pulmonary edema
proBNP 5000 (734 2 week ago)
Arterial blood gas without signs of nocturnal CO2 retention
#MARYANA - resolved
#Minimal change disease with nephrotic syndrome
check urine protein/cr ratio
Cr baseline 0.8
Recently switched from Furosemide to Torsemide by Neurosurgeon. Cardiology recommended not to continue diuresis on discharge. Do not think elevated proBNP is accurate here
#mild superior endplate deformity of the T4 and T5 vertebral bodies
#Mild compression deformity of the T12 vertebral body
pain mgmt as needed
no significant spinal pain
cont CellCept, prednisone
#Obesity
BMI 35.4
advised decreased calorie intake
#Recent diagnosis of b/l LE lymphedema
compression therapy
elevate extremely
#Social situation
poor ambulatory, lives alone, questionable if can function back at home - PT/OT recommend STR
#Chronic pain
#GERD
#Urinary urgency
#Neuropathy
cont home meds
DVT ppx Lovenox - declined heparin on previous occasions
FUll code
General: No Apparent Distress
HEENT: Normocephalic
Respiratory: Clear to Auscultation
Cardiac: Regular Rhythm
GI: Soft, Nontender and Nondistended
Musculoskeletal: Edema
Neuro: Awake, Alert, Oriented and AO x 3
Psych: Calm
Anticipated Discharge: Within 24 hours
Subjective/Interval History
-
Date of Service: April 05, 2025
denies nausea
Objective Data
-
Labs:
Laboratory Results
04/05/25
05:36
WBC 8.4
Hgb 11.2 L
Hct 34.8 L
Plt Count 140
Sodium 136
Potassium 3.8
Chloride 101
Carbon Dioxide 33 H
BUN 15
Creatinine 0.7
Glucose 79
Calcium 8.7
Total Bilirubin 0.5
AST 24
ALT < 10
Alkaline Phosphatase 72
Vital Signs:
Vital Signs
Temp Pulse Resp BP Pulse Ox
98.5 F 113 27 111/80 96
04/05/25 11:14 04/05/25 10:00 04/05/25 10:00 04/05/25 10:00 04/04/25 19:29
I&O
04/04/25 04/05/25 04/06/25
06:59 06:59 06:59
Intake Total 1050 / 1050
Balance 1050 / 1050
--- NOTE | 2025-04-05 14:20 | CM ---
IV/Ancef. Discharge POC: Therapy recommendation for SNF. Explained and provided [employer] list. [facility] preference [facility]. That is the only place she wants to go. I requested at least 3-4 other preferences as [facility] may not accept or
have a bed. She inquired if she could stay in hospital until they have a bed. CM said no. Explained that once medically cleared discharge needs to occur if bed available. Will place referral for [facility]. Awaiting other preferences. Will need
insurance auth.
[2025-04-05] MEDS: DULCOLAX 10 MG RECTAL (17:48)
[2025-04-05] MEDS: DETROL LA 2 MG PO (17:49)
[2025-04-06] VITALS (12 sets, daily range): BP systolic 91–136; BP diastolic 55–83; BMI 35.0
[2025-04-06 06:22] LABS: Hematocrit 34.7 % (37.0-47.0); Hemoglobin 11.4 g/dL (12.0-16.0); Mean Corp Hgb Conc. 32.9 g/dL (33.0-37.0); Mean Corpuscular Volume 92.8 fL (81.0-99.0); Nucleated Red Blood Cells % 0 %; Platelet Count 153 10^3/uL (130-400); Red Cell Dist. Width 13.6 % (11.5-14.5)
[2025-04-06 06:44] LABS: ALT (SGPT) < 10 U/L (0-35); AST (SGOT) 25 U/L (14-36); Albumin 3.1 g/dl (3.5-5.0); Alkaline Phosphatase 73 U/L (38-126); Blood Urea Nitrogen 17 mg/dl (7-17); Calcium 8.9 mg/dl (8.4-10.2); Carbon Dioxide 32 mmol/L (22-30); Chloride 102 mmol/L (98-107); Estimated Creatinine Clearance 77 ml/min; Glucose 75 mg/dl (70-99); Potassium 3.6 mmol/L (3.5-5.1); Sodium 135 mmol/L (135-145); Total Protein 5.2 g/dl (6.3-8.2); eGFR > 60.00
[2025-04-06] MEDS: MIRALAX 17 GRAMS PO (09:51)
[2025-04-06] MEDS: DELTASONE 20 MG PO (09:53)
[2025-04-06] MEDS: PRAVACHOL 40 MG PO (09:55)
[2025-04-06] MEDS: NEURONTIN 200 MG PO ×3 (09:55→21:57)
[2025-04-06] MEDS: PROTONIX 40 MG PO (09:55)
[2025-04-06] MEDS: MS CONTIN (EXTENDED RELEASE) 15 MG PO ×2 (09:55→20:42)
[2025-04-06] MEDS: CELLCEPT 250 MG PO ×2 (09:55→20:42)
[2025-04-06] MEDS: ASPIR LOW (ENTERIC COATED) 81 MG PO (09:56)
[2025-04-06] MEDS: ANCEF 10 IV ×2 (10:09→16:37)
[2025-04-06] MEDS: ROCALTROL 0.5 MCG PO (10:09)
--- NOTE | 2025-04-06 14:21 | W.PN.HOSP.TC ---
Today's Communication/Plan
-
Monitor vitals
See plan
Discharge planning
cw abx
PT
Assessment / Plan
Assessment / Plan
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 ALso concerned
for indolent infection.
A/P:
#Hypotension
Patient remains asymptomatic when in chair, no dizziness noted
as per patient - hypotension is chronic for the past couple of months
stop antihypertensives
TSH WNL
Increase Prednisone, since cannot exclude iatrogenic adrenal insufficiency, Cortisol level would be useless
BCx sent as card concerned for indolent infection, NGTD
Echo with mild
#Positive UA
PAin with urination
Urine culture with Proteus. Discussed with pharmacy and will continue cont ancef. By now patient has finished treatment for UTI
#RLE mild cellulitis
#Recent diagnosis of lymphedema
concern for lymph flow blockage. Same by [facility]x in [facility].
CT without overt reason for lymphedema. However found cystic foci measuring up to 1.4 cm along the superior aspect of the pancreatic neck - cannot exclude IPMN. Outpatient MRI w/wo contrast with pancreatic protocol to be advised in d/c instructions
US LE neg for DVT
Ancef
Constipation
Continue laxatives, Dulcolax
Improving
#Falls with chronic ambulatory deficiency
two falls without LOC - first when walker wheel stuck in bathroom between tiles, second - self down from sofa and could not raise
Patient minimally ambulatory on the baseline
PT/OT rec SNF; patient now agrees
#Acute hypoxic insufficiency, likely secondary to atelectasis
#Cannot exclude JERRI
#Troponin elevation, most likely non-ischemic myocardial injury due to CHF
EKG with new TWI
no chest pain
Cardiology following
multifactorial
CT without pulmonary embolism, no effusion, but minimal atelectasis
review showed minimal pulmonary edema
proBNP 5000 (734 2 week ago)
Arterial blood gas without signs of nocturnal CO2 retention
#MARYANA - resolved
#Minimal change disease with nephrotic syndrome
check urine protein/cr ratio
Cr baseline 0.8
Recently switched from Furosemide to Torsemide by Assembly Machine Tender. Cardiology recommended not to continue diuresis on discharge. Do not think elevated proBNP is accurate here
#mild superior endplate deformity of the T4 and T5 vertebral bodies
#Mild compression deformity of the T12 vertebral body
pain mgmt as needed
no significant spinal pain
cont CellCept, prednisone
#Obesity
BMI 35.4
advised decreased calorie intake
#Recent diagnosis of b/l LE lymphedema
compression therapy
elevate extremely
#Social situation
poor ambulatory, lives alone, questionable if can function back at home - PT/OT recommend STR
#Chronic pain
#GERD
#Urinary urgency
#Neuropathy
cont home meds
DVT ppx Lovenox - declined heparin on previous occasions
FUll code
General: No Apparent Distress
HEENT: Normocephalic
Respiratory: Clear to Auscultation
Cardiac: Regular Rhythm
GI: Soft, Nontender and Nondistended
Musculoskeletal: Edema
Neuro: Awake, Alert, Oriented and AO x 3
Psych: Calm
Anticipated Discharge: Within 24 hours
Subjective/Interval History
-
Date of Service: April 06, 2025
Denies pain
Objective Data
-
Labs:
Laboratory Results
04/06/25
05:54
WBC 7.7
Hgb 11.4 L
Hct 34.7 L
Plt Count 153
Sodium 135
Potassium 3.6
Chloride 102
Carbon Dioxide 32 H
BUN 17
Creatinine 0.7
Glucose 75
Calcium 8.9
Total Bilirubin 0.5
AST 25
ALT < 10
Alkaline Phosphatase 73
Vital Signs:
Vital Signs
Temp Pulse Resp BP Pulse Ox
98.2 F 107 18 112/72 95
04/06/25 03:00 04/06/25 10:00 04/06/25 10:00 04/06/25 10:00 04/06/25 06:00
I&O
04/05/25 04/06/25 04/07/25
06:59 06:59 06:59
Intake Total 240 / 240
Balance 240 / 240
--- NOTE | 2025-04-06 15:23 | CM ---
Discharge POC: [facility] accepted pending bed availability. Left message for liaison RE: Bed status. Awaiting return call. Spoke with patient, added additional preferences: [facility] and [facility]. Referrals placed. Will need insurance
auth.
--- NOTE | 2025-04-06 16:06 | PTCARENOTE ---
Patient had two BM's today. Constipation resolved. Encourage daily miralax that is ordered PRN. Patient AAOX3, using call ayoub and can make her needs know. Heavy assist x2 OOB to chair. Stand and pivot. VS stable. SR on monitor with HR 80-low
100's.
[2025-04-06] MEDS: DETROL LA 2 MG PO (16:40)
[2025-04-06] MEDS: FLUSH (NSS) 1 FLUSH IV (16:40)
--- NOTE | 2025-04-06 17:10 | PTCARENOTE ---
Report given to Safia NICKERSON. Patient to be transferred to [address] [place] [id number] 2.
--- NOTE | 2025-04-06 18:05 | PTCARENOTE ---
Received pt from IMU. Pt brought in bed. Pt AAOx3, very pleasant/cooperative. VSS. Oriented pt to room, pt reports no further needs at this time.
[2025-04-07] MEDS: ANCEF 10 IV ×2 (00:13→08:06)
[2025-04-07 03:27] VITALS: BP 119/70
[2025-04-07] MEDS: TYLENOL 650 MG PO ×2 (03:53→15:32)
[2025-04-07 05:19] VITALS: BMI 34.7
[2025-04-07 06:36] LABS: Hematocrit 34.8 % (37.0-47.0); Hemoglobin 11.3 g/dL (12.0-16.0); Mean Corp Hgb Conc. 32.5 g/dL (33.0-37.0); Mean Corpuscular Volume 92.1 fL (81.0-99.0); Nucleated Red Blood Cells % 0 %; Platelet Count 147 10^3/uL (130-400); Red Cell Dist. Width 13.8 % (11.5-14.5)
[2025-04-07 07:11] LABS: ALT (SGPT) < 10 U/L (0-35); AST (SGOT) 25 U/L (14-36); Albumin 3.0 g/dl (3.5-5.0); Alkaline Phosphatase 68 U/L (38-126); Blood Urea Nitrogen 19 mg/dl (7-17); Calcium 8.9 mg/dl (8.4-10.2); Carbon Dioxide 33 mmol/L (22-30); Chloride 103 mmol/L (98-107); Estimated Creatinine Clearance 77 ml/min; Glucose 73 mg/dl (70-99); Potassium 3.8 mmol/L (3.5-5.1); Sodium 137 mmol/L (135-145); Total Protein 5.1 g/dl (6.3-8.2); eGFR > 60.00
[2025-04-07 07:25] VITALS: BP 121/65
[2025-04-07] MEDS: PROTONIX 40 MG PO (08:04)
[2025-04-07] MEDS: PRAVACHOL 40 MG PO (08:04)
[2025-04-07] MEDS: NEURONTIN 200 MG PO ×2 (08:04→15:32)
[2025-04-07] MEDS: DELTASONE 20 MG PO (08:04)
[2025-04-07] MEDS: MS CONTIN (EXTENDED RELEASE) 15 MG PO (08:05)
[2025-04-07] MEDS: ASPIR LOW (ENTERIC COATED) 81 MG PO (08:05)
[2025-04-07] MEDS: CELLCEPT 250 MG PO (08:05)
[2025-04-07 11:07] VITALS: BP 111/72
[2025-04-07] MEDS: VISBIOME 1 CAP PO (11:17)
--- NOTE | 2025-04-07 11:36 | W.PN.HOSP.TC ---
Addendum entered and electronically signed by Rom Bland MD 04/07/25 14:17:
Time of discharge 39 minutes
Original Note:
Today's Communication/Plan
-
monitor vitals
see
Continue Keflex to complete the course
Discharge planning, rn field case manager aware.
Assessment / Plan
Assessment / Plan
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 ALso concerned
for indolent infection.
A/P:
#Hypotension
Patient remains asymptomatic when in chair, no dizziness noted
as per patient - hypotension is chronic for the past couple of months
stop antihypertensives
TSH WNL
Increase Prednisone, since cannot exclude iatrogenic adrenal insufficiency, Cortisol level would be useless
BCx sent as card concerned for indolent infection, NGTD
Echo with mild
#Positive UA
PAin with urination
Urine culture with Proteus. Discussed with pharmacy and will continue cont ancef. By now patient has finished treatment for UTI
#RLE mild cellulitis
#Recent diagnosis of lymphedema
concern for lymph flow blockage. Same by Vasc[facility]x in [facility].
CT without overt reason for lymphedema. However found cystic foci measuring up to 1.4 cm along the superior aspect of the pancreatic neck - cannot exclude IPMN. Outpatient MRI w/wo contrast with pancreatic protocol to be advised in d/c instructions
US LE neg for DVT
DC Ancef change antibiotics to Keflex to complete course
Constipation
Continue laxatives, Dulcolax
Improving
#Falls with chronic ambulatory deficiency
two falls without LOC - first when walker wheel stuck in bathroom between tiles, second - self down from sofa and could not raise
Patient minimally ambulatory on the baseline
PT/OT rec SNF; patient now agrees
#Acute hypoxic insufficiency, likely secondary to atelectasis
#Cannot exclude JERRI
#Troponin elevation, most likely non-ischemic myocardial injury due to CHF
EKG with new TWI
no chest pain
Cardiology following
multifactorial
CT without pulmonary embolism, no effusion, but minimal atelectasis
review showed minimal pulmonary edema
proBNP 5000 (734 2 week ago)
Arterial blood gas without signs of nocturnal CO2 retention
#MARYANA - resolved
#Minimal change disease with nephrotic syndrome
check urine protein/cr ratio
Cr baseline 0.8
Recently switched from Furosemide to Torsemide by Adoption Social Worker. Cardiology recommended not to continue diuresis on discharge. Do not think elevated proBNP is accurate here
#mild superior endplate deformity of the T4 and T5 vertebral bodies
#Mild compression deformity of the T12 vertebral body
pain mgmt as needed
no significant spinal pain
cont CellCept, prednisone
#Obesity
BMI 35.4
advised decreased calorie intake
#Recent diagnosis of b/l LE lymphedema
compression therapy
elevate extremely
#Social situation
poor ambulatory, lives alone, questionable if can function back at home - PT/OT recommend STR
#Chronic pain
#GERD
#Urinary urgency
#Neuropathy
cont home meds
DVT ppx Lovenox - declined heparin on previous occasions
FUll code
General: No Apparent Distress
HEENT: Normocephalic
Respiratory: Clear to Auscultation
Cardiac: Regular Rhythm
GI: Soft, Nontender and Nondistended
Musculoskeletal: Edema
Neuro: Awake, Alert, Oriented and AO x 3
Psych: Calm
Anticipated Discharge: Today
Subjective/Interval History
-
Date of Service: April 07, 2025
denies pain
Objective Data
-
Labs:
Laboratory Results
04/07/25
06:00
WBC 8.5
Hgb 11.3 L
Hct 34.8 L
Plt Count 147
Sodium 137
Potassium 3.8
Chloride 103
Carbon Dioxide 33 H
BUN 19 H
Creatinine 0.7
Glucose 73
Calcium 8.9
Total Bilirubin 0.5
AST 25
ALT < 10
Alkaline Phosphatase 68
Vital Signs:
Vital Signs
Temp Pulse Resp BP Pulse Ox
98.5 F 90 18 111/72 94
04/07/25 11:07 04/07/25 11:07 04/07/25 11:07 04/07/25 11:07 04/07/25 11:07
I&O
04/06/25 04/07/25 04/08/25
06:59 06:59 06:59
Intake Total 240 / 240 880 / 880
Balance 240 / 240 880 / 880
[2025-04-07 12:54] VITALS: BP 104/81; PULSE 102; PULSE 103; O2SAT 95; O2SAT 96
[2025-04-07] MEDS: KEFLEX 500 MG PO ×2 (12:55→17:44)
--- NOTE | 2025-04-07 13:48 | CM ---
MD indicated patient ready for discharge.
Updated referral [facility] accepted patient.
Spoke with Ellen high she agrees with [facility] today.
Needs auth with MARY Salgado
[facility] DR Patrizia Shelton .
Will need ambulance Medical nec form completed.
[facility]
report
fax [phone]
PLAN To [facility] after auth obtained
--- NOTE | 2025-04-07 14:16 | W.DCSUMMARY ---
Discharge Summary
Discharge Data
Date of Admission: 04/01/25
Date of Discharge: 04/07/25
-
Pending Results: No
Hospital Course
79-year-old female with past medical history of CKD, falls with chronic ambulatory dysfunction, spinal compression deformity, lymphedema, chronic pain, GERD, urinary urgency, neuropathy came to the hospital initially with concerns of congestive
heart failure. Patient also had severe hypotension with limited ability to diurese. Patient was seen by cardiology throughout hospitalization. It was determined that patient symptoms likely secondary to nephrotic syndrome. Since patient also
developed acute kidney injury along with hypotension, cardiology recommended not to continue diuresis on discharge and to have patient follow-up with them closely outpatient. Patient also had acute hypoxic respiratory insufficiency which continued
to improve over time. On this hospitalization patient also had urinary tract infection which was treated with antibiotics. She also had right lower extremity cellulitis for which she was on antibiotics on discharge to complete the course. Patient
blood pressure continue to improve over time. A lot of her antihypertensives were held upon discharge. Since she was already on prednisone it was also increased and she was instructed to follow-up outpatient. On this hospitalization patient also
had CT of the abdomen/pelvis which showed cystic foci up to 1.4 cm along the superior aspect of pancreatic neck. Patient instructed to follow-up with GI closely outpatient and to get MRI with pancreatic protocol outpatient. Patient was also
evaluated by physical therapy who recommended SNF. Once her symptoms continue to improve, she was then discharged to rehab with instructions to follow-up with all her physicians outpatient.
Discharge Plan
-
Patient Disposition: Custodial/SNF
Discharge Diagnosis/Procedures: Hypotension
Urinary tract infection
Right lower extremity cellulitis
History of lymphedema
Ambulatory dysfunction
Constipation
Acute hypoxic respiratory insufficiency secondary to atelectasis
Acute kidney injury
cystic foci measuring up to 1.4 cm along the superior aspect of the pancreatic neck - cannot exclude IPMN
Condition: Fair
Diet: Low Cholesterol and 2 Gram Sodium
Activity: With assistance and As tolerated
Driving Restrictions: Not until seen by your Dr
Bathing Restrictions: None
Others Tests: MRI w/wo contrast with pancreatic protocol in soon outpatient for cystic foci measuring up to 1.4 cm along the superior aspect of the pancreatic neck
Activity Restrictions/Additional Instructions:
Continue antibiotics through 04/11/2025
Referrals:
Devan Rey MD [Active, Gastroenterology]
Ratna Higgins CRNP [Family Provider, Family Practice] - in less than 1 week
Benjamin Smith MD [Active, Cardiology] - in one to two weeks
Prescriptions:
New
prednisone 10 mg Tablet
20 mg PO DAILY Qty: 0 0RF
polyethylene glycol 3350 17 gram Powder In Packet
17 g PO DAILYPRN PRN (Reason: constipation) Qty: 0 0RF
sennosides-docusate sodium [Senna Plus] 8.6-50 mg Tablet
1 tab PO BIDPRN PRN (Reason: constipation) Qty: 0 0RF
cephalexin 500 mg Capsule
500 mg PO QID Qty: 0 0RF
gabapentin 100 mg Capsule
200 mg PO TID Qty: 0 0RF
Lactobac/Bifidobac [Visbiome]
1 cap PO DAILY Qty: 0 0RF
Continued
mycophenolate mofetil 250 mg capsule
250 mg PO BID
aspirin 81 mg Tablet,Delayed Release (Dr/Ec)
81 mg PO DAILY
calcitriol 0.5 mcg capsule
0.5 mcg PO MOWEFR
glucosamine-chondroitin 250-200 mg Tablet
1 tab PO DAILY
mirabegron [Myrbetriq] 50 mg Tablet Extended Release 24 Hr
50 mg PO QPM
pravastatin 40 mg tablet
40 mg PO DAILY
therapeutic multivitamin Tablet
1 tab PO DAILY
omeprazole 20 mg capsule,delayed release(DR/EC)
20 mg PO DAILY
turmeric root extract 500 mg Capsule
500 mg PO DAILY
cranberry extract [Ellura] 200 mg Capsule
200 mg PO DAILY
[id number]-epa-algal oil 330-300-600 mg Capsule
1 cap PO DAILY
morphine 15 mg tablet extended release
15 mg PO BID Qty: 6 0RF
Held
losartan 100 mg tablet
100 mg PO DAILY
Hold Instructions: Restart when blood pressure is greater than 140/90
hydralazine 10 mg tablet
10 mg PO BID
Hold Instructions: Restart when blood pressure is greater than 140/90
propranolol 40 mg tablet
80 mg PO DAILY
Hold Instructions: Restart when blood pressure is greater than 140/90
torsemide 20 mg Tablet
20 mg PO BID
Hold Instructions: Restart when okay with cardiology
metoprolol tartrate 25 mg tablet
25 mg PO BID
Hold Instructions: Restart when blood pressure is greater than 140/90
Discontinued
gabapentin 300 mg Capsule
300 mg PO TID
prednisone 10 mg tablet
10 mg PO DAILY
tramadol 50 mg tablet
50 mg PO BIDPRN PRN (Reason: moderate pain) Qty: 14 0RF
Discharge Orders:
Discharge Patient (As Directed); Ordered 04/07/25
Ordered By: Rom Bland
Discharge Date and Time
Discharge Date/Time: 04/07/25 18:23
Print Language: HEBREW
--- NOTE | 2025-04-07 14:53 | CM ---
Skilled rehab authorization initiated with Chiara WILLOUGHBY
Approved skilled rehab at [facility]
Auth# [id number]
Start date 04/07/25, NRD 04/12/25
updates to: [phone]
Ambulance auth# [id number]
[2025-04-07 14:56] VITALS: BP 108/75
[2025-04-07] MEDS: DETROL LA 2 MG PO (17:43)
== END 2025-04-07 18:23 | DRG 682 ==
LOC: 4 EAST ACU 17:52
PROVIDERS: Emergency Medicine; Internal Medicine; Physician Assistant; Registered Nurse; ADMITTING PHYSICIAN Hospitalist; ATTENDING PHYSICIAN Internal Medicine; CONSULT PHYSICIAN Internal Medicine Cardiovascular Disease; EMERGENCY PHYSICIAN Student in an Organized Health Care Education/Training Program; FAMILY PHYSICIAN Nurse Practitioner Family
DX: N17.9 Acute kidney failure, unspecified (principal); I50.33 Acute on chronic diastolic (congestive) heart failure; F11.20 Opioid dependence, uncomplicated; I13.0 Hypertensive heart and chronic kidney disease with heart failure and stage 1 through stage 4 chronic kidney disease, or unspecified chronic kidney disease; J98.11 Atelectasis; L03.115 Cellulitis of right lower limb; N39.0 Urinary tract infection, site not specified; I5A Non-ischemic myocardial injury (non-traumatic); N18.9 Chronic kidney disease, unspecified; I95.9 Hypotension, unspecified; R09.02 Hypoxemia; R06.89 Other abnormalities of breathing; R26.2 Difficulty in walking, not elsewhere classified; K59.00 Constipation, unspecified; G89.4 Chronic pain syndrome; Z79.82 Long term (current) use of aspirin; Z79.899 Other long term (current) drug therapy; Z11.52 Encounter for screening for COVID-19
CPT/HCPCS: 36600; 70450; 71046; 71275; 72125; 73502; 74177; 80048; 80053; 80061; 81003; 81015; 82533; 82570; 82805; 83735; 83880; 84156; 84443; 84484; 85025; 85027; 87040; 87077; 87086; 87186; 87502; 87811; 93005; 93306; 93970; 97163; 97167; 97530; 99285; Q9967

== ENCOUNTER → 2025-04-08 11:59 | Outpatient (REF) | payer OTHER, SELFPAY ==
[2025-04-08 12:16] LABS: Hematocrit 36.2 % (37.0-47.0); Hemoglobin 11.3 g/dL (12.0-16.0); Mean Corp Hgb Conc. 31.2 g/dL (33.0-37.0); Mean Corpuscular Volume 97.6 fL (81.0-99.0); Nucleated Red Blood Cells % 0 %; Platelet Count 159 10^3/uL (130-400); Red Cell Dist. Width 14.0 % (11.5-14.5)
[2025-04-08 12:21] LABS: Blood Urea Nitrogen 21 mg/dl (7-17); Calcium 9.0 mg/dl (8.4-10.2); Carbon Dioxide 31 mmol/L (22-30); Chloride 101 mmol/L (98-107); Glucose 67 mg/dl (70-99); Potassium 3.9 mmol/L (3.5-5.1); Sodium 133 mmol/L (135-145); eGFR > 60.00
== END ==
LOC: OLABP 11:59
PROVIDERS: ATTENDING PHYSICIAN Family Medicine
DX: I95.1 Orthostatic hypotension (principal); W19.XXXD Unspecified fall, subsequent encounter; N39.0 Urinary tract infection, site not specified; B96.4 Proteus (mirabilis) (morganii) as the cause of diseases classified elsewhere; L03.115 Cellulitis of right lower limb; I89.0 Lymphedema, not elsewhere classified
CPT/HCPCS: 36415; 80048; 85025

== ENCOUNTER → 2025-04-11 10:20 | Outpatient (REF) | payer OTHER, SELFPAY ==
[2025-04-11 13:42] LABS: Hematocrit 36.8 % (37.0-47.0); Hemoglobin 11.1 g/dL (12.0-16.0); Mean Corp Hgb Conc. 30.2 g/dL (33.0-37.0); Mean Corpuscular Volume 97.4 fL (81.0-99.0); Nucleated Red Blood Cells % 0 %; Platelet Count 188 10^3/uL (130-400); Red Cell Dist. Width 14.4 % (11.5-14.5)
[2025-04-11 14:26] LABS: Albumin 3.2 g/dl (3.5-5.0); Blood Urea Nitrogen 24 mg/dl (7-17); Carbon Dioxide 29 mmol/L (22-30); Total Protein 5.3 g/dl (6.3-8.2); eGFR > 60.00
[2025-04-11 14:39] LABS: ALT (SGPT) 15 U/L (0-35); AST (SGOT) 21 U/L (14-36); Alkaline Phosphatase 69 U/L (38-126); Calcium 9.0 mg/dl (8.4-10.2); Chloride 102 mmol/L (98-107); Glucose 66 mg/dl (70-99); Magnesium 2.2 mg/dl (1.6-2.3); Potassium 3.4 mmol/L (3.5-5.1); Sodium 133 mmol/L (135-145); Uric Acid 5.6 mg/dl (2.5-6.2)
== END ==
LOC: OLABP 10:20
PROVIDERS: ATTENDING PHYSICIAN Family Medicine
DX: I95.1 Orthostatic hypotension (principal); W19.XXXD Unspecified fall, subsequent encounter; N39.0 Urinary tract infection, site not specified; B96.4 Proteus (mirabilis) (morganii) as the cause of diseases classified elsewhere; L03.115 Cellulitis of right lower limb; I89.0 Lymphedema, not elsewhere classified
CPT/HCPCS: 80053; 83735; 84100; 84550; 85025

== ENCOUNTER → 2025-04-14 10:50 | Outpatient (REF) | payer OTHER, SELFPAY ==
[2025-04-14 11:39] LABS: Blood Urea Nitrogen 18 mg/dl (7-17); Calcium 9.1 mg/dl (8.4-10.2); Carbon Dioxide 29 mmol/L (22-30); Chloride 104 mmol/L (98-107); Glucose 69 mg/dl (70-99); Potassium 3.9 mmol/L (3.5-5.1); Sodium 137 mmol/L (135-145); eGFR > 60.00
== END ==
LOC: OLABP 10:50
PROVIDERS: ATTENDING PHYSICIAN Family Medicine
DX: I95.1 Orthostatic hypotension (principal); W19.XXXD Unspecified fall, subsequent encounter; N39.0 Urinary tract infection, site not specified; B96.4 Proteus (mirabilis) (morganii) as the cause of diseases classified elsewhere; L03.115 Cellulitis of right lower limb; I89.0 Lymphedema, not elsewhere classified
CPT/HCPCS: 36415; 80048

== ENCOUNTER → 2025-04-15 10:57 | Outpatient (REF) | payer OTHER, SELFPAY ==
[2025-04-15 11:46] LABS: Blood Urea Nitrogen 17 mg/dl (7-17); Calcium 8.9 mg/dl (8.4-10.2); Carbon Dioxide 30 mmol/L (22-30); Chloride 103 mmol/L (98-107); Glucose 69 mg/dl (70-99); Potassium 3.8 mmol/L (3.5-5.1); Sodium 134 mmol/L (135-145); eGFR > 60.00
== END ==
LOC: OLABP 10:57
PROVIDERS: ATTENDING PHYSICIAN Family Medicine
DX: I95.1 Orthostatic hypotension (principal); W19.XXXD Unspecified fall, subsequent encounter; N39.0 Urinary tract infection, site not specified; B96.4 Proteus (mirabilis) (morganii) as the cause of diseases classified elsewhere; L03.115 Cellulitis of right lower limb; I89.0 Lymphedema, not elsewhere classified
CPT/HCPCS: 36415; 80048

== ENCOUNTER → 2025-04-20 20:45 | Outpatient (REF) | payer OTHER, SELFPAY ==
[2025-04-21 10:39] LABS: Urine Character Slightly Cloudy (Clear)
[2025-04-21 11:28] LABS: Urine White Cell 50-60 /HPF (0-5)
== END ==
LOC: OLABP 20:45
PROVIDERS: ATTENDING PHYSICIAN Family Medicine
DX: I95.1 Orthostatic hypotension (principal); W19.XXXD Unspecified fall, subsequent encounter; N39.0 Urinary tract infection, site not specified; B96.4 Proteus (mirabilis) (morganii) as the cause of diseases classified elsewhere; L03.115 Cellulitis of right lower limb; I89.0 Lymphedema, not elsewhere classified
CPT/HCPCS: 81003; 81015; 87086

== ENCOUNTER → 2025-04-22 16:01 | Outpatient (REF) | payer OTHER, SELFPAY ==
[2025-04-22 16:51] LABS: Urine Character Slightly Cloudy (Clear)
[2025-04-22 17:16] LABS: Urine Squamous Cell 0-2 /LPF (Few)
== END ==
LOC: OLABP 16:01
PROVIDERS: ATTENDING PHYSICIAN Family Medicine
DX: I89.0 Lymphedema, not elsewhere classified (principal); I95.1 Orthostatic hypotension; W19.XXXD Unspecified fall, subsequent encounter; N39.0 Urinary tract infection, site not specified; B96.4 Proteus (mirabilis) (morganii) as the cause of diseases classified elsewhere; L03.115 Cellulitis of right lower limb
CPT/HCPCS: 81003; 81015; 87086

== ENCOUNTER → 2025-04-24 21:45 | Outpatient (REF) | payer OTHER, SELFPAY ==
[2025-04-25 11:40] LABS: Urine Character Clear (Clear)
[2025-04-25 13:04] LABS: Urine Squamous Cell 0-2 /LPF (Few)
[2025-04-25 13:05] LABS: Urine Red Blood Cell 0-2 /HPF (0-2)
== END ==
LOC: OLABP 21:45
PROVIDERS: ATTENDING PHYSICIAN Family Medicine
DX: I95.1 Orthostatic hypotension (principal); W19.XXXD Unspecified fall, subsequent encounter; N39.0 Urinary tract infection, site not specified; B96.4 Proteus (mirabilis) (morganii) as the cause of diseases classified elsewhere; L03.115 Cellulitis of right lower limb; I89.0 Lymphedema, not elsewhere classified
CPT/HCPCS: 81003; 81015; 87077; 87086

== ENCOUNTER → 2025-04-29 08:25 | Outpatient (REF) | payer OTHER, SELFPAY ==
[2025-04-29 16:27] LABS: Blood Urea Nitrogen 23 mg/dl (7-17); Calcium 8.5 mg/dl (8.4-10.2); Carbon Dioxide 29 mmol/L (22-30); Chloride 102 mmol/L (98-107); Glucose 105 mg/dl (70-99); Sodium 134 mmol/L (135-145); eGFR > 60.00
== END ==
LOC: OLABP 08:25
PROVIDERS: ATTENDING PHYSICIAN Family Medicine
DX: I95.1 Orthostatic hypotension (principal); W19.XXXD Unspecified fall, subsequent encounter; N39.0 Urinary tract infection, site not specified; B96.4 Proteus (mirabilis) (morganii) as the cause of diseases classified elsewhere; L03.115 Cellulitis of right lower limb; I89.0 Lymphedema, not elsewhere classified
CPT/HCPCS: 36415; 80048

== ENCOUNTER → 2025-05-06 10:13 | Outpatient (REF) | payer OTHER, SELFPAY ==
[2025-05-06 11:34] LABS: Hematocrit 36.9 % (37.0-47.0); Hemoglobin 12.0 g/dL (12.0-16.0); Mean Corp Hgb Conc. 32.5 g/dL (33.0-37.0); Mean Corpuscular Volume 96.6 fL (81.0-99.0); Nucleated Red Blood Cells % 0 %; Platelet Count 185 10^3/uL (130-400); Red Cell Dist. Width 14.7 % (11.5-14.5)
[2025-05-06 11:49] LABS: Blood Urea Nitrogen 25 mg/dl (7-17); Calcium 9.0 mg/dl (8.4-10.2); Carbon Dioxide 35 mmol/L (22-30); Chloride 99 mmol/L (98-107); Glucose 68 mg/dl (70-99); Potassium 3.8 mmol/L (3.5-5.1); Sodium 135 mmol/L (135-145); eGFR > 60.00
== END ==
LOC: OLABP 10:13
PROVIDERS: ATTENDING PHYSICIAN Family Medicine
DX: I95.1 Orthostatic hypotension (principal); W19.XXXD Unspecified fall, subsequent encounter; N39.0 Urinary tract infection, site not specified; B96.4 Proteus (mirabilis) (morganii) as the cause of diseases classified elsewhere; L03.115 Cellulitis of right lower limb; I89.0 Lymphedema, not elsewhere classified
CPT/HCPCS: 36415; 80048; 85025

== ENCOUNTER → 2025-05-18 10:56 | Outpatient (REF) | payer OTHER, SELFPAY ==
[2025-05-18 11:19] LABS: Hematocrit 37.5 % (37.0-47.0); Hemoglobin 11.5 g/dL (12.0-16.0); Mean Corp Hgb Conc. 30.7 g/dL (33.0-37.0); Mean Corpuscular Volume 99.5 fL (81.0-99.0); Nucleated Red Blood Cells % 0 %; Platelet Count 170 10^3/uL (130-400); Red Cell Dist. Width 14.5 % (11.5-14.5)
[2025-05-18 12:33] LABS: Blood Urea Nitrogen 30 mg/dl (7-17); Calcium 8.8 mg/dl (8.4-10.2); Carbon Dioxide 31 mmol/L (22-30); Chloride 100 mmol/L (98-107); Glucose 66 mg/dl (70-99); Potassium 4.0 mmol/L (3.5-5.1); Sodium 135 mmol/L (135-145); eGFR > 60.00
== END ==
LOC: OLABP 10:56
PROVIDERS: ATTENDING PHYSICIAN Family Medicine
DX: I95.1 Orthostatic hypotension (principal); W19.XXXD Unspecified fall, subsequent encounter; N39.0 Urinary tract infection, site not specified; B96.4 Proteus (mirabilis) (morganii) as the cause of diseases classified elsewhere; L03.115 Cellulitis of right lower limb; I89.0 Lymphedema, not elsewhere classified
CPT/HCPCS: 36415; 80048; 85025